=== PATIENT | male | born 1955 | race Caucasian/White ===

== ENCOUNTER → 2017-07-19 11:06 | Outpatient (REF) | payer MEDICARE, SELFPAY ==
[2017-07-19 18:44] LABS: Basophils % 0.4 % (0.1-2.0); Eosinophils # 0.6 K/mm3 (0.0-0.4); Eosinophils % 6.3 % (0.1-12.0); Hematocrit 38.8 % (42.0-52.0); Hemoglobin 12.2 g/dL (14.1-18.0); Lymphocytes # 2.5 K/mm3 (0.7-4.5); Lymphocytes % 28.1 K/mm3 (10-50); Mean Corpuscular HGB Conc 31.5 g/dL (31.8-35.4); Mean Corpuscular Hemoglobin 30.4 pg (27.0-31.2); Mean Corpuscular Volume 96.5 fl (80-94); Monocytes # 0.4 K/mm3 (0.1-1.0); Monocytes % 4.9 % (1.7-9.3); Neutrophils # 5.4 K/mm3 (1.8-7.8); Neutrophils % 60.3 % (37.0-80.0); Platelet Count 195 K/mm3 (142-424); Red Blood Count 4.02 M/mm3 (4.60-6.20); Red Cell Distribution Width 13.8 % (11.5-17.5); White Blood Count 8.9 K/mm3 (4.8-10.8)
[2017-07-19 19:35] LABS: Hemoglobin A1C 9.2 % (0.0-7.0)
[2017-07-19 19:42] LABS: Alanine Aminotransferase 54 U/L (12-78); Albumin Level 4.2 gm/dL (3.4-5.0); Albumin/Globulin Ratio 1.3 (1.1-1.8); Alkaline Phosphatase 79 U/L (46-116); Aspartate Amino Transferase 28 U/L (15-37); Bilirubin,Total 0.3 mg/dL (0.2-1.0); Blood Urea Nitrogen 19 mg/dL (7-18); Calcium 9.1 mg/dL (8.5-10.1); Carbon Dioxide 24 mmol/L (21.0-32.0); Chloride 107 mmol/L (98-107); Chol/HDL Ratio 2.9 (1-3.5); Cholesterol 112 mg/dL (140-200); Globulin 3.2 gm/dl (1.3-3.2); HDL Cholesterol 39 mg/dL (27-67); LDL Cholesterol 20 mg/dL (0-130); T4 (Thyroxine) 6.8 ug/dl (4.7-13.3); Thyroid Stimulating Hormone 1.87 uIU/ml (0.358-3.740); Total Protein,Serum 7.4 gm/dL (6.4-8.2); Triglycerides 263 mg/dL (30-200); VLDL Cholesterol 53 mg/dL (0-40)
[2017-07-19 19:46] LABS: Amphetamine/Metha Screen,Urine Negative ng/mL (<1000); Barbiturates Screen,Urine Negative ng/mL (<200); Benzodiazepines Screen,Urine Negative ng/mL (200); Cannabinoid Screen,Urine Negative ng/mL (<50); Cocaine Screen,Urine Negative ng/g (<300); Methadone Screen,Urine Negative ng/mL (<300); Opiate Screen,Urine Negative ng/mL (<300); Phencyclidine Screen,Urine Negative ng/mL (<25)
[2017-07-19 19:51] LABS: Anion Gap 16.7 mEq/L (5-15); Creatinine,Serum 1.42 mg/dL (0.70-1.30); Estimated Glomerular Filt Rate 51 ml/min (>60); GFR (African American) 61 ML/MIN (>60); Glucose 204 mg/dL (74-106); Sodium 141 mmol/L (136-145)
[2017-07-19 19:54] LABS: Potassium 6.7 mmoL/L (3.5-5.1)
[2017-07-22 11:08] LABS: Microalbumin, Urine 10.8 ug/mL (Not Estab.); PSA, Free 0.18 ng/mL; Prostate Specific Ag 0.5 ng/mL (0.0-4.0)
== END ==
LOC: LAB 11:06
PROVIDERS: Visit Provider Physician Assistant
DX: E11.9 Type 2 diabetes mellitus without complications (principal); G89.29 Other chronic pain; M54.5 Low back pain
CPT/HCPCS: 80053; 80061; 80305; 82043; 83036; 84436; 84443; 85025

== ENCOUNTER 2017-07-20 09:07 | Emergency (ER) | payer MEDICARE, SELFPAY ==
[2017-07-20 09:12] VITALS: BP 170/101; PULSE 68; RESP 22; TEMP 36.9; O2SAT 98; BMI 31.9
--- NOTE | 2017-07-20 09:19 | HMH.EDGENADL ---
ED Disposition Clinical Impression: Abnormal laboratory test result Disposition: Home, Self-Care Condition on Discharge: Good Additional Instructions: See Franchesca next regularly scheduled appointment. - Critical Care Critical Care Time: No Attestation: On , the high probability of a clinically significant, sudden or life threatening deterioration of the following system(s) required my full and direct attention, intervention and personal management. The time I documented below is in addition to time spent performing reported procedures but includes the following listed in this critical care notation. Medical Decision Making - Medical Records Medical records reviewed: Yes: I reviewed the patient's medical records. Vital Signs: 07/20/17 09:12 07/20/17 09:38 07/20/17 09:47 Temperature 98.5 F 98.2 F Temperature Source Oral Oral Pulse Rate [Right Radial] 68 70 71 Respiratory Rate 22 22 22 Blood Pressure [Right Arm] 170/101 157/93 150/95 Blood Pressure Mean [Right Arm] 124 114 113 Blood Pressure Source [Right Arm] Automatic Cuff Automatic Cuff Automatic Cuff Blood Pressure Position [Right Arm] Supine Sitting Sitting 02 Sat by Pulse Oximetry 98 100 95 Oxygen Delivery Method Room Air Room Air Room Air - Lab Data Lab Results 07/20/17 09:38: Sodium 140, Potassium 5.0 D, Chloride 106, Carbon Dioxide 26, Anion Gap 13.0, BUN 20 H, Creatinine 1.37 H, Estimated Creat Clear 76, Estimated GFR 53 L, Est GFR ( Amer) 64, Glucose 229 H, Calcium 9.1, Total Bilirubin 0.3, AST 25, ALT 51, Alkaline Phosphatase 85, Total Protein 7.1, Albumin 3.7 D, Globulin 3.4 H, Albumin/Globulin Ratio 1.1 normal; no intervention needed Result diagrams: 07/20/17 09:38 Orders (Tests/Meds): ORDERS Category Date Time Status ECG Request by /Zohreh Stat Y 07/20/17 09:18 Ordered - ECG Data Tracing #1 I reviewed this ECG and interpreted as documented below: With no T-wave changes. Normal intervals. ECG initial impression date: 07/20/17 ECG initial impression time: 09:30 ECG normal with no acute: arrhythmias, ischemia, conduction abnormalities, chamber hypertrophy (Sinus rhythm with normal axis and intervals. No ectopy. Normal T-wave configuration.) - Kana Inquiry Pt receiving controlled substance: No Medical Decision Making Narrative: Patient got upset when he was called by PCP and had some left sided abdominal pain radiating to left ribs after she called, and the pain went away after I told him his EKG was normal. His potassium here is normal so likely the original specimen was hemolyzed. I consulted with Franchesca regarding all physical findings. lab results, EKG, and she said for patient to f/u at usually scheduled time. Patient has no complaints at discharge, BP normalized now that he has calmed down and is reassured, and agrees to f/u Franchesca as scheduled. Stable at d/c. General Adult HPI - General Chief complaint: Recheck/Abnormal Lab/Rx Stated complaint: potassium high Time Seen by Provider: 07/20/17 09:20 Mode of Arrival: Ambulatory Source of Information: Patient Limitations: No Limitations - History of Present Illness HPI narrative: Patient referred by Franchesca from Dr. Gutierrez's office due to abnormal routine laboratory study. Patient laboratory studies performed yesterday, potassium noted to be elevated. Patient was notified morning and told to go immediately to the emergency department. Is not currently being supplemented on potassium. Denies being on Spironolactone. Denies any history of CRI. No neurological symptoms. Onset (ago): day(s) (1) - Related Data Home Medications Medication Instructions Recorded Confirmed atorvastatin 20 mg tablet 20 mg PO QDAY 07/19/17 07/20/17 carvedilol 25 mg tablet 25 mg PO BID 07/19/17 07/20/17 doxazosin 4 mg tablet 4 mg PO BID tab 07/19/17 07/20/17 lisinopril 40 mg tablet 40 mg PO BID tab 07/19/17 07/20/17 metformin 1,000 mg tablet 1,000 mg PO BID 07/19/17
--- NOTE | 2017-07-20 09:22 | ED_ITS ---
ED Disposition Clinical Impression: Abnormal laboratory test result Disposition: Home, Self-Care Condition on Discharge: Good Additional Instructions: See Franchesca next regularly scheduled appointment. - Critical Care Critical Care Time: No Attestation: On , the high probability of a clinically significant, sudden or life threatening deterioration of the following system(s) required my full and direct attention, intervention and personal management. The time I documented below is in addition to time spent performing reported procedures but includes the following listed in this critical care notation. Medical Decision Making - Medical Records Medical records reviewed: Yes: I reviewed the patient's medical records. Vital Signs: 07/20/17 09:12 07/20/17 09:38 07/20/17 09:47 Temperature 98.5 F 98.2 F Temperature Source Oral Oral Pulse Rate [Right Radial] 68 70 71 Respiratory Rate 22 22 22 Blood Pressure [Right Arm] 170/101 157/93 150/95 Blood Pressure Mean [Right Arm] 124 114 113 Blood Pressure Source [Right Arm] Automatic Cuff Automatic Cuff Automatic Cuff Blood Pressure Position [Right Arm] Supine Sitting Sitting 02 Sat by Pulse Oximetry 98 100 95 Oxygen Delivery Method Room Air Room Air Room Air - Lab Data Lab Results 07/20/17 09:38: Sodium 140, Potassium 5.0 D, Chloride 106, Carbon Dioxide 26, Anion Gap 13.0, BUN 20 H, Creatinine 1.37 H, Estimated Creat Clear 76, Estimated GFR 53 L, Est GFR ( Amer) 64, Glucose 229 H, Calcium 9.1, Total Bilirubin 0.3, AST 25, ALT 51, Alkaline Phosphatase 85, Total Protein 7.1 , Albumin 3.7 D, Globulin 3.4 H, Albumin/Globulin Ratio 1.1 normal; no intervention needed Result diagrams: 07/20/17 09:38 Orders (Tests/Meds): ORDERS Category Date Time Status ECG Request by /Zohreh Stat Y 07/20/17 09:18 Ordered - ECG Data Tracing #1 I reviewed this ECG and interpreted as documented below: With no T-wave changes. Normal intervals. ECG initial impression date: 07/20/17 ECG initial impression time: 09:30 ECG normal with no acute: arrhythmias, ischemia, conduction abnormalities, chamber hypertrophy (Sinus rhythm with normal axis and intervals. No ectopy. Normal T-wave configuration.) - Kana Inquiry Pt receiving controlled substance: No Medical Decision Making Narrative: Patient got upset when he was called by PCP and had some left sided abdominal pain radiating to left ribs after she called, and the pain went away after I told him his EKG was normal. His potassium here is normal so likely the original specimen was hemolyzed. I consulted with Franchesca regarding all physical findings. lab results, EKG, and she said for patient to f/u at usually scheduled time. Patient has no complaints at discharge, BP normalized now that he has calmed down and is reassured, and agrees to f/u Franchesca as scheduled. Stable at d/c. General Adult HPI - General Chief complaint: Recheck/Abnormal Lab/Rx Stated complaint: potassium high Time Seen by Provider: 07/20/17 09:20 Mode of Arrival: Ambulatory Source of Information: Patient Limitations: No Limitations - History of Present Illness HPI narrative: Patient referred by Franchesca from Dr. Gutierrez's office due to abnormal routine laboratory study. Patient laboratory studies performed yesterday, potassium noted to be elevated. Patient was notified morning and told to go immediately to the emergency department. Is n
[2017-07-20 09:38] VITALS: BP 157/93; PULSE 70; RESP 22; O2SAT 100
[2017-07-20 09:47] VITALS: BP 150/95; PULSE 71; RESP 22; TEMP 36.8; O2SAT 95
[2017-07-20 09:59] LABS: Alanine Aminotransferase 51 U/L (12-78); Albumin Level 3.7 gm/dL (3.4-5.0); Albumin/Globulin Ratio 1.1 (1.1-1.8); Alkaline Phosphatase 85 U/L (46-116); Aspartate Amino Transferase 25 U/L (15-37); Bilirubin,Total 0.3 mg/dL (0.2-1.0); Blood Urea Nitrogen 20 mg/dL (7-18); Calcium 9.1 mg/dL (8.5-10.1); Carbon Dioxide 26 mmol/L (21.0-32.0); Chloride 106 mmol/L (98-107); Creatinine Clearance Estimated 76 mL/min (0-300); Creatinine,Serum 1.37 mg/dL (0.70-1.30); Estimated Glomerular Filt Rate 53 ml/min (>60); GFR (African American) 64 ML/MIN (>60); Globulin 3.4 gm/dl (1.3-3.2); Glucose 229 mg/dL (74-106); Sodium 140 mmol/L (136-145); Total Protein,Serum 7.1 gm/dL (6.4-8.2)
[2017-07-20 10:36] VITALS: BP 135/85; PULSE 72; RESP 20; O2SAT 96
== END 2017-07-20 10:37 | disposition home or self-care (01) ==
PROVIDERS: Emergency Provider Emergency Medicine; PCP Physician Assistant
DX: E87.5 Hyperkalemia; E11.9 Type 2 diabetes mellitus without complications; F17.210 Nicotine dependence, cigarettes, uncomplicated; Z79.84 Long term (current) use of oral hypoglycemic drugs; Z79.899 Other long term (current) drug therapy
CPT/HCPCS: 80053; 93005; 93041; 99283

== ENCOUNTER → 2017-08-10 07:49 | Outpatient (CLI) | payer MEDICARE, SELFPAY ==
--- NOTE | 2017-08-10 07:55 | MR_ITS ---
MR lumbar spine wo con, MR 3-d myelogram/MRCP HISTORY: Severe low back pain which is getting worse with left leg pain ORDERING PHYSICIAN: ARNOLD Boyd PATIENT AGE: 62 years COMPARISON: Radiograph of 07/11/2016 TECHNIQUE: Standard multiplanar multiecho sequences are performed without contrast. 3-D MIP and myelographic images are also rendered and reviewed FINDINGS: There is normal alignment. The spinal cord ends at the L1-L2 level. T11-T12: On the sagittal images there appears to be a small left paracentral disc protrusion. Axial images were not obtained through this area and may be better evaluated with dedicated MRI of the thoracic spine of clinically warranted T12-L1 and L1-L2 are unremarkable aside from minimal disc desiccation and minimal endplate irregularity at L1-L2. L2-L3: Moderate degenerative disc disease with diffuse bulging disc along with facet and ligamentum flavum hypertrophy. There is bilateral lateral recess narrowing greater on the right with some suspected mild impingement of the right L3 nerve root. There is a tiny right paracentral disc protrusion. L3-L4: Mild diffuse bulging disc with mild facet and ligamentum flavum hypertrophy. L4-L5: Mild concentric bulging disc with mild facet and ligamentum flavum hypertrophy. L5-S1: Mild concentric bulging disc with mild facet and ligament hypertrophy. No extruded herniated disc evident. No bony canal stenosis. IMPRESSION: 1. Mild multilevel lumbar spondylosis with degenerative disc disease, bulging disc along with facet and ligamentum hypertrophy. Please see above for detailed description at each level. 2. Moderate degenerative disc disease at L2-L3 with diffuse bulging disc along with facet and ligamentum flavum hypertrophy. There is bilateral lateral recess narrowing greater on the right with some suspected mild impingement of the right L3 nerve root. There is a tiny right paracentral disc protrusion 3. Suspect a small left paracentral disc protrusion at T11-T12 on the sagittal images. Consider MRI of the thoracic spine with dedicated axial images for further evaluation in this patient with left-sided pain
== END ==
PROVIDERS: PCP Physician Assistant; Visit Provider Physician Assistant
DX: M54.5 Low back pain (principal); G89.29 Other chronic pain
CPT/HCPCS: 72148; 76376

== ENCOUNTER → 2017-08-17 10:42 | Outpatient (REF) | payer MEDICARE, SELFPAY ==
[2017-08-17 14:06] LABS: Amphetamine/Metha Screen,Urine Negative ng/mL (<1000); Barbiturates Screen,Urine Negative ng/mL (<200); Benzodiazepines Screen,Urine Negative ng/mL (200); Cannabinoid Screen,Urine Negative ng/mL (<50); Cocaine Screen,Urine Negative ng/g (<300); Methadone Screen,Urine Negative ng/mL (<300); Opiate Screen,Urine Positive ng/mL (<300); Phencyclidine Screen,Urine Negative ng/mL (<25)
== END ==
LOC: LAB 10:42
PROVIDERS: Visit Provider Physician Assistant
DX: M51.16 Intervertebral disc disorders with radiculopathy, lumbar region (principal)
CPT/HCPCS: 80305

== ENCOUNTER → 2017-09-09 07:46 | Outpatient (CLI) | payer MEDICARE, SELFPAY ==
--- NOTE | 2017-09-09 07:49 | MR_ITS ---
MR thoracic spine wo con HISTORY: Mid Back pain Xyrs. LT sided back pain Interval vertebral disc herniation, mid back pain, left-sided back pain, possible left paracentral disc protrusion at T11-T12 seen on the lumbar spine MRI with dedicated thoracic spine MRI recommended ORDERING PHYSICIAN: ARNOLD Boyd PATIENT AGE: 62 years COMPARISON: MRI of the lumbar spine up to 2117 TECHNIQUE: Standard multiplanar multiecho sequences are performed without contrast. 3-D MIP and myelographic images are also rendered and reviewed FINDINGS: There is normal alignment. There is mild multilevel disc desiccation in the thoracic spine indicate mild degenerative disc disease. Minimal bulging disc at T7-T8. Minimal central disc protrusion T9-T10 very slightly eccentric toward the right without impingement. Small left paracentral disc protrusion at T11-T12: Mild left lateral recess and foraminal narrowing but no obvious impingement upon the cord. No fracture or dislocation. There is mild thoracic curvature convex right. IMPRESSION: 1. Small left paracentral disc protrusion at T11-T12 with mild left lateral recess and foraminal narrowing but no obvious impingement upon the cord. 2. Minimal central disc protrusion at T9-T10. 3. Mild thoracic spondylosis
== END ==
PROVIDERS: PCP Physician Assistant; Visit Provider Physician Assistant
DX: M51.24 Other intervertebral disc displacement, thoracic region (principal)
CPT/HCPCS: 72146

== ENCOUNTER → 2017-09-13 10:03 | Outpatient (REF) | payer MEDICARE, SELFPAY ==
[2017-09-13 13:38] LABS: Amphetamine/Metha Screen,Urine Negative ng/mL (<1000); Barbiturates Screen,Urine Negative ng/mL (<200); Benzodiazepines Screen,Urine Negative ng/mL (200); Cannabinoid Screen,Urine Negative ng/mL (<50); Cocaine Screen,Urine Negative ng/g (<300); Methadone Screen,Urine Negative ng/mL (<300); Opiate Screen,Urine Positive ng/mL (<300); Phencyclidine Screen,Urine Negative ng/mL (<25)
== END ==
LOC: LAB 10:03
PROVIDERS: Visit Provider Physician Assistant
DX: M51.16 Intervertebral disc disorders with radiculopathy, lumbar region (principal)
CPT/HCPCS: 80305

== ENCOUNTER → 2017-09-19 11:42 | Outpatient (POV) | payer MEDICARE, SELFPAY ==
[2017-09-19 11:44] VITALS: BP 155/85; PULSE 79; RESP 20; O2SAT 97; BMI 30.4
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
== END ==
PROVIDERS: PCP Physician Assistant; Visit Provider Clinical Nurse Specialist Family Health
DX: M54.16 Radiculopathy, lumbar region (principal)
CPT/HCPCS: 99212; 99202

== ENCOUNTER → 2017-12-14 09:57 | Outpatient (REF) | payer MEDICARE, SELFPAY ==
[2017-12-14 16:18] LABS: Amphetamine/Metha Screen,Urine Negative ng/mL (<1000); Barbiturates Screen,Urine Negative ng/mL (<200); Benzodiazepines Screen,Urine Negative ng/mL (200); Cannabinoid Screen,Urine Negative ng/mL (<50); Cocaine Screen,Urine Negative ng/g (<300); Methadone Screen,Urine Negative ng/mL (<300); Opiate Screen,Urine Positive ng/mL (<300); Phencyclidine Screen,Urine Negative ng/mL (<25)
== END ==
LOC: LAB 09:57
PROVIDERS: Visit Provider Physician Assistant
DX: M51.36 Other intervertebral disc degeneration, lumbar region (principal); N40.1 Benign prostatic hyperplasia with lower urinary tract symptoms; R35.0 Frequency of micturition; Z79.899 Other long term (current) drug therapy
CPT/HCPCS: 80305

== ENCOUNTER → 2018-03-13 09:12 | Outpatient (REF) | payer MEDICARE, SELFPAY ==
[2018-03-13 15:23] LABS: Amphetamine/Metha Screen,Urine Negative ng/mL (<1000); Barbiturates Screen,Urine Negative ng/mL (<200); Benzodiazepines Screen,Urine Negative ng/mL (<200); Cannabinoid Screen,Urine Negative ng/mL (<50); Cocaine Screen,Urine Negative ng/mL (<300); Methadone Screen,Urine Negative ng/mL (<300); Opiate Screen,Urine Positive ng/mL (<300); Phencyclidine Screen,Urine Negative ng/mL (<25)
== END ==
LOC: LAB 09:12
PROVIDERS: Visit Provider Physician Assistant
DX: M54.2 Cervicalgia (principal)
CPT/HCPCS: 80305

== ENCOUNTER → 2018-06-14 14:04 | Outpatient (CLI) | payer MEDICARE, SELFPAY ==
[2018-06-14 16:25] LABS: Amphetamine/Metha Screen,Urine Negative ng/mL (<1000); Barbiturates Screen,Urine Negative ng/mL (<200); Benzodiazepines Screen,Urine Negative ng/mL (<200); Cannabinoid Screen,Urine Negative ng/mL (<50); Cocaine Screen,Urine Negative ng/mL (<300); Methadone Screen,Urine Negative ng/mL (<300); Opiate Screen,Urine Positive ng/mL (<300); Phencyclidine Screen,Urine Negative ng/mL (<25)
== END ==
PROVIDERS: Visit Provider Physician Assistant
DX: Z79.899 Other long term (current) drug therapy (principal)
CPT/HCPCS: 80305

== ENCOUNTER → 2018-12-04 13:26 | Outpatient (CLI) | payer MEDICARE, SELFPAY ==
[2018-12-04 13:41] LABS: Basophils % 0.4 % (0.1-2.0); Eosinophils # 0.3 K/mm3 (0.0-0.4); Eosinophils % 3.7 % (0.1-12.0); Hematocrit 37.9 % (42.0-52.0); Hemoglobin 11.7 g/dL (14.1-18.0); Lymphocytes # 2.1 K/mm3 (0.7-4.5); Lymphocytes % 23.8 % (10-50); Mean Corpuscular HGB Conc 30.8 g/dL (31.8-35.4); Mean Corpuscular Hemoglobin 29.6 pg (27.0-31.2); Mean Corpuscular Volume 96.3 fl (80-94); Mean Platelet Volume 7.6 fl (7.4-10.4); Monocytes # 0.5 K/mm3 (0.1-1.0); Monocytes % 5.7 % (1.7-9.3); Neutrophils # 5.9 K/mm3 (1.8-7.8); Neutrophils % 66.5 % (37.0-80.0); Platelet Count 230 K/mm3 (142-424); Red Blood Count 3.93 M/mm3 (4.60-6.20); Red Cell Distribution Width 13.7 % (11.5-17.5); White Blood Count 8.9 K/mm3 (4.8-10.8)
[2018-12-04 14:34] LABS: Alanine Aminotransferase 31 U/L (12-78); Albumin Level 3.8 gm/dL (3.4-5.0); Albumin/Globulin Ratio 1.2 (1.1-1.8); Alkaline Phosphatase 76 U/L (46-116); Anion Gap 16.6 mEq/L (5-15); Aspartate Amino Transferase 15 U/L (15-37); Bilirubin,Total 0.5 mg/dL (0.2-1.0); Blood Urea Nitrogen 21 mg/dL (7-18); Calcium 8.6 mg/dL (8.5-10.1); Carbon Dioxide 25 mmol/L (21.0-32.0); Chloride 103 mmol/L (98-107); Chol/HDL Ratio 3.1 (1-3.5); Cholesterol 91 mg/dL (140-200); Creatinine,Serum 1.76 mg/dL (0.70-1.30); Estimated Glomerular Filt Rate 39 ml/min (>60); GFR (African American) 48 ML/MIN (>60); Globulin 3.1 gm/dl (1.3-3.2); Glucose 156 mg/dL (74-106); HDL Cholesterol 29 mg/dL (27-67); LDL Cholesterol 16 mg/dL (0-130); Potassium 5.6 mmoL/L (3.5-5.1); Prostate Specific Ag Screen 0.5 ng/mL (0.0-4.0); Sodium 139 mmol/L (136-145); T4 (Thyroxine) 7.1 ug/dl (4.7-13.3); Thyroid Stimulating Hormone 1.58 uIU/ml (0.358-3.740); Total Protein,Serum 6.9 gm/dL (6.4-8.2); Triglycerides 228 mg/dL (30-200); VLDL Cholesterol 46 mg/dL (0-40)
[2018-12-04 14:56] LABS: Amphetamine/Metha Screen,Urine Negative ng/mL (<1000); Barbiturates Screen,Urine Negative ng/mL (<200); Benzodiazepines Screen,Urine Negative ng/mL (<200); Cannabinoid Screen,Urine Negative ng/mL (<50); Cocaine Screen,Urine Negative ng/mL (<300); Methadone Screen,Urine Negative ng/mL (<300); Opiate Screen,Urine Positive ng/mL (<300); Phencyclidine Screen,Urine Negative ng/mL (<25)
[2018-12-04 15:25] LABS: Hemoglobin A1C 7.8 % (0.0-7.0)
[2018-12-07 07:46] LABS: Microalbumin, Urine 10.1 ug/mL (Not Estab.)
== END ==
PROVIDERS: Visit Provider Physician Assistant
DX: E11.9 Type 2 diabetes mellitus without complications (principal); Z79.899 Other long term (current) drug therapy; Z12.5 Encounter for screening for malignant neoplasm of prostate; Z79.84 Long term (current) use of oral hypoglycemic drugs
CPT/HCPCS: 80053; 80061; 80305; 82043; 83036; 84436; 84443; 85025; G0103

== ENCOUNTER → 2018-12-25 11:08 | Outpatient (CLI) | payer MEDICARE, SELFPAY ==
--- NOTE | 2018-12-25 11:11 | CA_ITS ---
PROCEDURE: 2-D M-mode and color Doppler study INDICATIONS FOR THE TEST: Chest pain COPD Heart Murmur Tobacco Smoking+ Palpitations Fatigue Syncope Edema Hypertension+Diabetes Mellitus Rheumatic Fever SOB NICOLE Obesity Hyperlipidemia+ Family History HD Additional History stents,cad, hx colon ca PATIENT INFORMATION HEIGHT: 68 WEIGHT:198 GENDER: Male B/P:144/71 2-D/M-MODE INTERPRETATION: 2-D MEASUREMENTS OBSERVED VALUES IN CMS Right Ventricular Dimension (RVDd) 1.4 Interventricular Septum (Thickness)(IVsd) 0.4 Left Ventricular Internal Dimensions(LVIDd) 5.4 Left Ventricular Posterior Wall (Thickness)(LVPWd) 0.9 Aortic Root 2.9 Aortic Cusp Separation 2.1 Left Atrial Dimensions (LAD) 4.3 2D 1. Left atrium is mildly enlarged, left ventricle is normal size, mild qualitative concentric left ventricular hypertrophy, visually estimated ejection fraction 55% with no regional wall motion abnormality. 2. The right atrium and right ventricle are normal size and contractility. 3. The aortic valve is minimally thickened and calcified. Leaflet continue to display good mobility. 4. Mitral and tricuspid valvular grossly normal. 5. The pulmonic valve is poorly visualized. 6. No significant pericardial effusion noted. DOPPLER INTERROGATION: Doppler interrogation of the aortic, mitral and tricuspid valvular presence of mild mitral and tricuspid regurgitation, tricuspid regurgitation jet velocity is inadequate for calculation of the right ventricular systolic pressure, grade 1 diastolic dysfunction seen without tissue Doppler evidence of raised left atrial pressure. CONCLUSION: 1. Mildly enlarged left atrium, normal left ventricular size, mild qualitative concentric left ventricular hypertrophy, visually estimated ejection fraction 55% with no regional wall motion abnormality, grade 1 diastolic dysfunction seen without tissue Doppler evidence of raised left atrial pressure. 2. Mild mitral and tricuspid regurgitation 3. No significant pericardial effusion noted.
== END ==
PROVIDERS: PCP Emergency Medicine; Visit Provider Urology
DX: E78.5 Hyperlipidemia, unspecified (principal); F17.200 Nicotine dependence, unspecified, uncomplicated; I10 Essential (primary) hypertension; I25.10 Atherosclerotic heart disease of native coronary artery without angina pectoris; Z95.5 Presence of coronary angioplasty implant and graft
CPT/HCPCS: 93306

== ENCOUNTER → 2019-01-29 13:53 | Outpatient (CLI) | payer MEDICARE, SELFPAY ==
[2019-01-29 15:15] LABS: Amphetamine/Metha Screen,Urine Negative ng/mL (<1000); Barbiturates Screen,Urine Negative ng/mL (<200); Benzodiazepines Screen,Urine Negative ng/mL (<200); Cannabinoid Screen,Urine Negative ng/mL (<50); Cocaine Screen,Urine Negative ng/mL (<300); Methadone Screen,Urine Negative ng/mL (<300); Opiate Screen,Urine Positive ng/mL (<300); Phencyclidine Screen,Urine Negative ng/mL (<25)
== END ==
PROVIDERS: Visit Provider Physician Assistant
DX: Z79.899 Other long term (current) drug therapy (principal)
CPT/HCPCS: 80305

== ENCOUNTER → 2019-10-18 09:23 | Outpatient (CLI) | payer MEDICARE, SELFPAY ==
--- NOTE | 2019-10-18 09:23 | MR_ITS ---
PROCEDURE: MR LUMBAR SPINE WO CON CLINICAL INDICATION: Worsening low back pain Worsening low back pain, left-sided low back pain COMPARISON: SPLUMBWO MR lumbar spine wo con from 08/10/2017 SPTHORWO MR thoracic spine wo con from 09/09/2017 TECHNIQUE: Standard multiplanar multiecho sequences are performed without contrast. 3-D MIP and myelographic images are also rendered and reviewed FINDINGS: There is slight reversal of the thoracolumbar lordosis. The spinal cord ends at the L1-L2 level. There is multilevel lumbar spondylosis as described below. T10-T11: Degenerative disc disease. T11-T12: Degenerative disc disease with a small left paracentral disc protrusion causing mild left lateral recess and foraminal narrowing. T12-L1: Mild degenerative disc disease. L1-L2: Mild degenerative disc disease. L2-L3: Degenerative disc disease with concentric bulging disc along with facet and ligamentum hypertrophy with moderate bilateral lateral recess narrowing and moderate bilateral foraminal narrowing. The lateral recess and foraminal narrowing is greater on the right. These findings have slightly progressed compared to the previous exam. The bulging disc is more prominent on today's study compared to the previous exam. L3-L4: Mild concentric bulging disc along with facet and ligamentum hypertrophy with [id number] bilateral lateral recess and foraminal narrowing not significantly changed. L4-5: Mild concentric bulging disc with facet and ligamentum hypertrophy with mild bilateral lateral recess and foraminal narrowing L5-S1: Concentric bulging disc with facet ligamentum hypertrophy with mild bilateral foraminal narrowing. No extruded herniated disc. No bony canal stenosis. IMPRESSION: 1. Abnormal MRI of the lumbar spine with multilevel lumbar spondylosis with degenerative disc disease along with facet and ligamentum hypertrophy and bulging disc with resultant lateral recess and foraminal narrowing. Please see above for detailed description at each level. 2. Small left paracentral disc protrusion at T11-T12 with left lateral recess and foraminal narrowing. 3. Degenerative disc disease at L2-L3 with concentric bulging disc along with facet and ligamentum hypertrophy with moderate bilateral lateral recess narrowing and moderate bilateral foraminal narrowing. The lateral recess and foraminal narrowing is greater on the right. These findings have slightly progressed compared to the previous exam. The bulging disc is more prominent on today's study compared to the previous exam 4. No extruded herniated disc or bony canal stenosis Dictated by: Shukri So MD 10/19/2019 08:42 Electronically signed by Shukri So MD in [place] 10/19/2019 08:43
== END ==
PROVIDERS: PCP Physician Assistant; Visit Provider Emergency Medicine
DX: M51.36 Other intervertebral disc degeneration, lumbar region (principal)
CPT/HCPCS: 72148; 76376

== ENCOUNTER → 2019-12-17 14:06 | Outpatient (CLI) | payer MEDICARE, SELFPAY ==
[2019-12-17 14:39] LABS: Basophils % 0.3 % (0.1-2.0); Eosinophils # 0.3 K/mm3 (0.0-0.4); Eosinophils % 3.8 % (0.1-12.0); Hematocrit 45.1 % (42.0-52.0); Hemoglobin 14.8 g/dL (14.1-18.0); Lymphocytes # 2.2 K/mm3 (0.7-4.5); Lymphocytes % 24.8 % (10-50); Mean Corpuscular HGB Conc 32.8 g/dL (31.8-35.4); Mean Corpuscular Hemoglobin 32.9 pg (27.0-31.2); Mean Corpuscular Volume 100.1 fl (80-94); Mean Platelet Volume 8.8 fl (7.4-10.4); Monocytes # 0.4 K/mm3 (0.1-1.0); Monocytes % 4.1 % (1.7-9.3); Neutrophils % 67.1 % (37.0-80.0); Platelet Count 218 K/mm3 (142-424); Red Cell Distribution Width 14.2 % (11.5-17.5)
[2019-12-17 15:05] LABS: Chloride 102 mmol/L (98-107)
[2019-12-17 15:06] LABS: Potassium 5.4 mmoL/L (3.5-5.1); Sodium 133 mmol/L (136-145)
[2019-12-17 15:08] LABS: Alanine Aminotransferase 18 U/L (12-78); Alkaline Phosphatase 77 U/L (38-126); Aspartate Amino Transferase 19 U/L (17-59); Bilirubin,Total 0.7 mg/dl (0.2-1.3); Blood Urea Nitrogen 30 mg/dl (9-20); Carbon Dioxide 22 mmol/L (22.0-30.0); Estimated Glomerular Filt Rate 44 ml/min (>60); GFR (African American) 53 ML/MIN (>60)
[2019-12-17 15:09] LABS: Albumin Level 4.3 g/dl (3.5-5.0); Albumin/Globulin Ratio 1.6 (1.1-1.8); Anion Gap 14.4 mEq/L (5-15); Calcium 9.4 mg/dl (8.4-10.2); Chol/HDL Ratio 5.6 (1-3.5); Cholesterol 203 mg/dl (140-200); Globulin 2.7 g/dL (1.3-3.2); Glucose 357 mg/dl (74-100); HDL Cholesterol 36 mg/dl (40-60); Triglycerides 295 mg/dl (30-150); VLDL Cholesterol 59 mg/dL (0-40)
[2019-12-17 15:16] LABS: Microalbumin < 6.000 mg/L (0-16.7)
[2019-12-17 15:20] LABS: Direct LDL Cholesterol 127.01 mg/dL (100-129)
[2019-12-17 15:25] LABS: T4 (Thyroxine) 7.5 ug/dl (5.53-11.0)
[2019-12-17 15:39] LABS: Thyroid Stimulating Hormone 1.54 uIU/mL (0.465-4.68)
[2019-12-19 11:39] LABS: Folate >20.0 ng/mL (>3.0); Vitamin B12 604 pg/mL (232-1245)
== END ==
PROVIDERS: Visit Provider Physician Assistant
DX: E11.9 Type 2 diabetes mellitus without complications (principal); D64.9 Anemia, unspecified; Z79.84 Long term (current) use of oral hypoglycemic drugs
CPT/HCPCS: 80053; 80061; 82043; 82607; 82746; 83036; 84436; 84443; 85025

== ENCOUNTER 2020-02-05 14:10 | Emergency (ER) | payer MEDICARE, SELFPAY ==
[2020-02-05 14:31] VITALS: BP 138/81; PULSE 77; RESP 14; TEMP 36.8; O2SAT 96; BMI 28.1
--- NOTE | 2020-02-05 15:00 | HMH.EDUTC ---
[facility] [place] Disposition Clinical Impression: Forearm abrasion Qualifiers: Encounter type: initial encounter Laterality: left Qualified Code(s): S50.812A - Abrasion of left forearm, initial encounter Disposition: Home, Self-Care Condition on Discharge: Good Instructions: DI for Abrasion, DI for Minor Laceration Additional Instructions: Keep wound area clean and dry Over the counter Neosporin to the area with bandage Watch for signs of infection such as redness, drainage, swelling or streaks Return if needed Straight to ER if any life threatening symptoms Follow up with Family Doctor if needed Referrals: Franchesca Arteaga PA [Primary Care Provider] - As needed Time of Disposition: 15:06 Medical Decision Making - Kana Inquiry Pt receiving controlled substance: No Kana was queried for this patient: No Vital Signs: 02/05/20 14:31 02/05/20 15:06 Temperature 98.2 F 98.2 F Temperature Source Oral Pulse Rate 77 Pulse Rate [Right Brachial] 77 Respiratory Rate 14 14 Blood Pressure 138/81 Blood Pressure [Right Arm] 138/81 Blood Pressure Mean [Right Arm] 100 Blood Pressure Source [Right Arm] Automatic Cuff Blood Pressure Position [Right Arm] Sitting 02 Sat by Pulse Oximetry 96 Oxygen Delivery Method Room Air [facility] [place] HPI - General Stated complaint: cut on left forearm Time Seen by Provider: 02/05/20 15:00 Mode of Arrival: Ambulatory Source of Information: Patient Limitations: No Limitations Description of Symptoms (Recalled from Triage Doc. by RN): PATIENT C/O CUTE TO LEFT FOREARM SINCE YESTERDAY AND IS WORRIED IT MAY BE INFECTED. NO UP TO DATE ON TETANUS HEENT Symptoms (Recalled from RN notes): No Resp Symptoms (Recalled from RN notes): No Skin Symptoms (Recalled from RN notes): Yes MS Symptoms (Recalled from RN notes): No Functional Status (Recalled from RN notes): WNL - History of Present Illness Provider Complaint: Patient states that he was helping his brother yesterday evening when he cut his forearm on a shield on the tractor States that he wasnt sure when his last tetanus shot was and he was worried and just wanted to have it looked at to see if it may be infected so he came in States that he is also unsure when his last tetanus shot was and needed one of those also - Related Data Home Medications Medication Instructions Recorded Confirmed aspirin 81 mg tablet,delayed 81 mg PO DAILY 12/04/18 12/17/19 release Previous Rx's Medication Instructions Recorded triamterene 75 1 tab PO DAILY #90 tab 04/18/19 mg-hydrochlorothiazide 50 mg tablet lisinopril 30 mg tablet 30 mg PO DAILY #90 tab 09/10/19 metformin 1,000 mg tablet 1,000 mg PO BID #180 tab 09/10/19 atorvastatin 20 mg tablet 20 mg PO DAILY #90 tab 10/10/19 carvedilol 25 mg tablet 25 mg PO BID #180 tab 10/10/19 diazepam 2 mg tablet 2 mg PO BID PRN #14 tab 10/10/19 doxazosin 4 mg tablet 8 mg PO DAILY #90 tab 10/10/19 gabapentin 300 mg capsule 300 mg PO TID #90 cap 12/10/19 hydrocodone 5 mg-acetaminophen 325 1 tab PO TID PRN #90 tab 12/17/19 mg tablet glipizide 10 mg tablet, extended 10 mg PO DAILY #90 tab 12/19/19 release 24 hr sildenafil (pulm.hypertension) 20 20 mg PO DAILY PRN #30 tab 01/18/20 mg tablet Allergies Allergy/AdvReac Type Severity Reaction Status Date / Time amoxicillin [AMOXICILLIN] Allergy Intermediate I-RASH Verified 12/17/19 09:54 - Worker's Comp Is this a Worker's Comp case?: No [facility] History - Hepatitis A Screen Drug use history?: No High risk sexual behaviors?: No History of sexually transmitted infection?: No Currently employed?: No Childcare worker?: No Do you have indoor plumbing?: Yes Do you have electricity?: Yes Attestation statement:: This patient has been screened for Hepatitis A risk factors. I have reviewed the patient's past medical history: Yes Medical History: Reports:: Cancer, Diabetes Mellitus Type 2, Hypertension Other Medical History: Reports: Arthritis Comment
[2020-02-05 15:06] VITALS: BP 138/81; PULSE 77; RESP 14; TEMP 36.8; O2SAT 96
== END 2020-02-05 15:08 | disposition home or self-care (01) ==
PROVIDERS: Emergency Provider Nurse Practitioner; PCP Physician Assistant
DX: S50.812A Abrasion of left forearm, initial encounter (principal); W22.8XXA Striking against or struck by other objects, initial encounter; Y92.79 Other farm location as the place of occurrence of the external cause; Z23 Encounter for immunization; E11.9 Type 2 diabetes mellitus without complications; I10 Essential (primary) hypertension; E78.5 Hyperlipidemia, unspecified; Z95.5 Presence of coronary angioplasty implant and graft; Z85.038 Personal history of other malignant neoplasm of large intestine; F17.210 Nicotine dependence, cigarettes, uncomplicated; Z88.1 Allergy status to other antibiotic agents
CPT/HCPCS: 90471; 99201

== ENCOUNTER → 2020-02-13 19:16 | Outpatient (CLI) | payer MEDICARE, SELFPAY ==
[2020-02-13 19:30] LABS: Basophils % 0.5 % (0.1-2.0); Eosinophils # 0.5 K/mm3 (0.0-0.4); Hematocrit 45.5 % (42.0-52.0); Hemoglobin 15.4 g/dL (14.1-18.0); Lymphocytes # 2.5 K/mm3 (0.7-4.5); Mean Corpuscular HGB Conc 33.9 g/dL (31.8-35.4); Mean Corpuscular Hemoglobin 33.2 pg (27.0-31.2); Mean Platelet Volume 7.9 fl (7.4-10.4); Monocytes # 0.4 K/mm3 (0.1-1.0); Monocytes % 4.9 % (1.7-9.3); Neutrophils # 4.8 K/mm3 (1.8-7.8); Neutrophils % 58.6 % (37.0-80.0); Platelet Count 244 K/mm3 (142-424); Red Blood Count 4.65 M/mm3 (4.60-6.20); Red Cell Distribution Width 13.7 % (11.5-17.5); White Blood Count 8.3 K/mm3 (4.8-10.8)
[2020-02-13 20:03] LABS: Alanine Aminotransferase 19 U/L (12-78); Albumin Level 4.6 g/dl (3.5-5.0); Albumin/Globulin Ratio 1.4 (1.1-1.8); Alkaline Phosphatase 80 U/L (38-126); Anion Gap 17.8 mEq/L (5-15); Aspartate Amino Transferase 23 U/L (17-59); Bilirubin,Total 0.5 mg/dl (0.2-1.3); Blood Urea Nitrogen 29 mg/dl (9-20); Calcium 9.8 mg/dl (8.4-10.2); Carbon Dioxide 27 mmol/L (22.0-30.0); Chloride 101 mmol/L (98-107); Chol/HDL Ratio 5.9 (1-3.5); Cholesterol 205 mg/dl (140-200); Estimated Glomerular Filt Rate 38 ml/min (>60); GFR (African American) 46 ML/MIN (>60); Globulin 3.2 g/dL (1.3-3.2); Glucose 123 mg/dl (74-100); HDL Cholesterol 35 mg/dl (40-60); Potassium 4.8 mmoL/L (3.5-5.1); Sodium 141 mmol/L (136-145); Total Protein,Serum 7.8 g/dl (6.3-8.2); Triglycerides 303 mg/dl (30-150); VLDL Cholesterol 61 mg/dL (0-40)
[2020-02-13 20:14] LABS: Direct LDL Cholesterol 117.76 mg/dL (100-129)
[2020-02-13 20:18] LABS: Free T4 (Free Thyroxine) 1.08 ng/dl (0.78-2.19)
[2020-02-13 20:32] LABS: Thyroid Stimulating Hormone 2.05 uIU/mL (0.465-4.68)
[2020-02-13 20:37] LABS: Hemoglobin A1C 7.7 % (4.0-6.0)
== END ==
PROVIDERS: Visit Provider Nurse Practitioner Family
DX: E11.9 Type 2 diabetes mellitus without complications (principal); R89.9 Unspecified abnormal finding in specimens from other organs, systems and tissues; R19.7 Diarrhea, unspecified; K59.00 Constipation, unspecified; E03.9 Hypothyroidism, unspecified; Z79.84 Long term (current) use of oral hypoglycemic drugs
CPT/HCPCS: 80053; 80061; 83036; 84439; 84443; 85025

== ENCOUNTER → 2020-03-17 14:18 | Outpatient (CLI) | payer MEDICARE, SELFPAY ==
[2020-03-17 14:39] LABS: Chloride 106 mmol/L (98-107)
[2020-03-17 14:40] LABS: Potassium 5.2 mmoL/L (3.5-5.1); Sodium 142 mmol/L (136-145)
[2020-03-17 14:43] LABS: Anion Gap 15.2 mEq/L (5-15); Blood Urea Nitrogen 37 mg/dl (9-20); Calcium 9.4 mg/dl (8.4-10.2); Carbon Dioxide 26 mmol/L (22.0-30.0); Estimated Glomerular Filt Rate 34 ml/min (>60); GFR (African American) 41 ML/MIN (>60); Glucose 198 mg/dl (74-100)
== END ==
PROVIDERS: Visit Provider Physician Assistant
DX: E11.9 Type 2 diabetes mellitus without complications (principal); Z79.84 Long term (current) use of oral hypoglycemic drugs
CPT/HCPCS: 36415; 80048

== ENCOUNTER → 2020-05-21 16:57 | Outpatient (CLI) | payer MEDICARE, SELFPAY ==
[2020-05-27 08:03] LABS: Neisseria gonorrhoeae, NAA Negative (Negative)
== END ==
PROVIDERS: Visit Provider Physician Assistant
DX: N40.0 Benign prostatic hyperplasia without lower urinary tract symptoms (principal)
CPT/HCPCS: 87086; 87491; 87591

== ENCOUNTER → 2020-08-06 14:03 | Outpatient (CLI) | payer MEDICARE, SELFPAY ==
[2020-08-06 14:23] LABS: Basophils % 0.6 % (0.1-2.0); Eosinophils # 0.5 K/mm3 (0.0-0.4); Eosinophils % 6.8 % (0.1-12.0); Hematocrit 45.1 % (42.0-52.0); Hemoglobin 14.3 g/dL (14.1-18.0); Mean Corpuscular HGB Conc 31.7 g/dL (31.8-35.4); Mean Corpuscular Hemoglobin 30.9 pg (27.0-31.2); Mean Corpuscular Volume 97.4 fl (80-94); Monocytes # 0.4 K/mm3 (0.1-1.0); Neutrophils # 4.4 K/mm3 (1.8-7.8); Neutrophils % 60.5 % (37.0-80.0); Platelet Count 210 K/mm3 (142-424); Red Blood Count 4.63 M/mm3 (4.60-6.20); Red Cell Distribution Width 14.1 % (11.5-17.5); White Blood Count 7.2 K/mm3 (4.8-10.8)
[2020-08-06 14:41] LABS: Alanine Aminotransferase 21 U/L (12-78); Albumin Level 4.2 g/dl (3.5-5.0); Albumin/Globulin Ratio 1.4 (1.1-1.8); Alkaline Phosphatase 99 U/L (38-126); Anion Gap 14.4 mEq/L (5-15); Aspartate Amino Transferase 22 U/L (17-59); Bilirubin,Total 0.4 mg/dl (0.2-1.3); Blood Urea Nitrogen 39 mg/dl (9-20); Calcium 9.7 mg/dl (8.4-10.2); Carbon Dioxide 27 mmol/L (22.0-30.0); Chloride 101 mmol/L (98-107); Chol/HDL Ratio 7.3 (1-3.5); Cholesterol 225 mg/dl (140-200); Estimated Glomerular Filt Rate 36 ml/min (>60); GFR (African American) 43 ML/MIN (>60); Glucose 321 mg/dl (74-100); HDL Cholesterol 31 mg/dl (40-60); Potassium 5.4 mmoL/L (3.5-5.1); Sodium 137 mmol/L (136-145); Total Protein,Serum 7.2 g/dl (6.3-8.2); Triglycerides 338 mg/dl (30-150); VLDL Cholesterol 68 mg/dL (0-40)
[2020-08-06 14:52] LABS: Direct LDL Cholesterol 140.86 mg/dL (100-129)
[2020-08-06 14:58] LABS: T4 (Thyroxine) 7.5 ug/dl (5.53-11.0)
[2020-08-06 15:12] LABS: Thyroid Stimulating Hormone 2.16 uIU/mL (0.465-4.68)
[2020-08-06 16:07] LABS: Hemoglobin A1C 8.4 % (4.0-6.0)
== END ==
PROVIDERS: Visit Provider Nurse Practitioner Family
DX: E11.9 Type 2 diabetes mellitus without complications (principal); E78.5 Hyperlipidemia, unspecified; I10 Essential (primary) hypertension; N52.9 Male erectile dysfunction, unspecified; Z79.84 Long term (current) use of oral hypoglycemic drugs
CPT/HCPCS: 80053; 80061; 83036; 84436; 84443; 85025

== ENCOUNTER → 2020-08-14 12:30 | Outpatient (CLI) | payer MEDICARE, SELFPAY ==
[2020-08-14 13:24] LABS: Chloride 100 mmol/L (98-107); Potassium 5.2 mmoL/L (3.5-5.1); Sodium 139 mmol/L (136-145)
[2020-08-14 13:27] LABS: Alanine Aminotransferase 24 U/L (12-78); Albumin Level 4.5 g/dl (3.5-5.0); Albumin/Globulin Ratio 1.5 (1.1-1.8); Alkaline Phosphatase 116 U/L (38-126); Anion Gap 14.2 mEq/L (5-15); Aspartate Amino Transferase 25 U/L (17-59); Bilirubin,Total 0.5 mg/dl (0.2-1.3); Blood Urea Nitrogen 44 mg/dl (9-20); Carbon Dioxide 30 mmol/L (22.0-30.0); Estimated Glomerular Filt Rate 30 ml/min (>60); GFR (African American) 37 ML/MIN (>60); Globulin 3.1 g/dL (1.3-3.2); Total Protein,Serum 7.6 g/dl (6.3-8.2)
[2020-08-14 13:28] LABS: Calcium 10.2 mg/dl (8.4-10.2); Glucose 293 mg/dl (74-100)
== END ==
PROVIDERS: Visit Provider Nurse Practitioner Family
DX: E87.5 Hyperkalemia (principal)
CPT/HCPCS: 36415; 80053

== ENCOUNTER → 2020-09-10 14:05 | Outpatient (POV) | payer MEDICARE, SELFPAY | DX: Z00.00 Encounter for general adult medical examination without abnormal findings (principal) ==

== ENCOUNTER → 2020-09-18 13:58 | Outpatient (CLI) | payer MEDICARE, SELFPAY ==
[2020-09-18 14:19] LABS: Amphetamine/Metha Screen,Urine Negative ng/ml (<1000); Barbiturates Screen,Urine Negative ng/ml (<200)
[2020-09-18 14:20] LABS: Benzodiazepines Screen,Urine Negative ng/ml (<200)
[2020-09-18 14:21] LABS: Cannabinoid Screen,Urine Negative ng/ml (<50); Cocaine Screen,Urine Negative ng/ml (<300)
[2020-09-18 14:22] LABS: Methadone Screen,Urine Negative ng/ml (<300); Opiate Screen,Urine Negative ng/ml (<300)
[2020-09-18 14:23] LABS: Phencyclidine Screen,Urine Negative ng/ml (<25)
== END ==
PROVIDERS: Visit Provider Nurse Practitioner Family
DX: M54.2 Cervicalgia (principal); M54.9 Dorsalgia, unspecified
CPT/HCPCS: 80305

== ENCOUNTER → 2020-11-18 20:44 | Outpatient (CLI) | payer MEDICARE, SELFPAY ==
[2020-11-18 20:56] LABS: Basophils # 0.1 K/mm3 (0-0.2); Basophils % 0.6 % (0.1-2.0); Eosinophils # 1.1 K/mm3 (0.0-0.4); Eosinophils % 10.3 % (0.1-12.0); Hematocrit 44.3 % (42.0-52.0); Hemoglobin 14.1 g/dL (14.1-18.0); Lymphocytes # 2.5 K/mm3 (0.7-4.5); Mean Corpuscular HGB Conc 31.7 g/dL (31.8-35.4); Mean Corpuscular Hemoglobin 31.1 pg (27.0-31.2); Mean Corpuscular Volume 98.2 fl (80-94); Mean Platelet Volume 9.1 fl (7.4-10.4); Monocytes # 0.5 K/mm3 (0.1-1.0); Monocytes % 4.8 % (1.7-9.3); Neutrophils # 6.6 K/mm3 (1.8-7.8); Neutrophils % 61.3 % (37.0-80.0); Platelet Count 206 K/mm3 (142-424); Red Blood Count 4.52 M/mm3 (4.60-6.20); Red Cell Distribution Width 14.6 % (11.5-17.5); White Blood Count 10.7 K/mm3 (4.8-10.8)
[2020-11-18 21:15] LABS: Chloride 103 mmol/L (98-107)
[2020-11-18 21:16] LABS: Potassium 4.8 mmoL/L (3.5-5.1); Sodium 138 mmol/L (136-145)
[2020-11-18 21:18] LABS: Alanine Aminotransferase 19 U/L (12-78); Alkaline Phosphatase 125 U/L (38-126); Aspartate Amino Transferase 24 U/L (17-59); Bilirubin,Total 0.5 mg/dl (0.2-1.3); Blood Urea Nitrogen 29 mg/dl (9-20); Estimated Glomerular Filt Rate 38 ml/min (>60); GFR (African American) 46 ML/MIN (>60)
[2020-11-18 21:19] LABS: Albumin Level 4.1 g/dl (3.5-5.0); Albumin/Globulin Ratio 1.4 (1.1-1.8); Anion Gap 13.8 mEq/L (5-15); Calcium 9.6 mg/dl (8.4-10.2); Carbon Dioxide 26 mmol/L (22.0-30.0); Glucose 240 mg/dl (74-100); Total Protein,Serum 7.1 g/dl (6.3-8.2)
[2020-11-19 03:37] LABS: Hemoglobin A1C 8.4 % (4.0-6.0)
[2020-11-20 08:15] LABS: CEA 7.9 ng/mL (0.0-4.7)
== END ==
PROVIDERS: Visit Provider Internal Medicine Adolescent Medicine
DX: C18.9 Malignant neoplasm of colon, unspecified (principal); E11.69 Type 2 diabetes mellitus with other specified complication; Z79.84 Long term (current) use of oral hypoglycemic drugs
CPT/HCPCS: 80053; 82378; 83036; 85025

== ENCOUNTER → 2020-11-25 14:28 | Outpatient (CLI) | payer MEDICARE, SELFPAY ==
--- NOTE | 2020-11-25 14:34 | XR_ITS ---
PROCEDURE: XR LUMBAR SPINE MIN 4V CLINICAL INDICATION: LT SIDED LOW BACK PAIN COMPARISON: CR LS5 LUMBAR SPINE 5 VIEWS from 07/11/2016 FINDINGS: Mild lumbar curvature convex left. Degenerative disc disease is present at L2-L3 and has progressed since 07/11/2016. There is mild degenerative disc disease in the lower thoracic spine with small anterior osteophytes. No acute fracture or dislocation. Other findings:None. IMPRESSION: Progressing degenerative disc disease at L2-L3 Dictated by: Shukri So MD 11/25/2020 16:04 Shukri So MD in [place] 11/25/2020 16:04
--- NOTE | 2020-11-25 14:34 | XR_ITS ---
PROCEDURE: XR SACROILIAC JOINT BI MIN 3V CLINICAL INDICATION: LT SIDED LOW BACK PAIN COMPARISON: MR MR LUMBAR SPINE WO CON from 10/18/2019 CR XR LUMBAR SPINE MIN 4V from 11/25/2020 FINDINGS: No fracture or dislocation. No lytic or blastic change. There is normal mineralization. The joint spaces are well-preserved. No significant degenerative/arthritic changes. No erosive changes evident. Other findings:None. IMPRESSION: Negative SI joints Dictated by: Shukri So MD 11/25/2020 16:05 Shukri So MD in [place] 11/25/2020 16:05
== END ==
PROVIDERS: PCP Internal Medicine Adolescent Medicine; Visit Provider Internal Medicine Adolescent Medicine
DX: M54.5 Low back pain (principal)
CPT/HCPCS: 72110; 72202

== ENCOUNTER → 2020-12-03 08:49 | Outpatient (CLI) | payer MEDICARE, SELFPAY | PROVIDERS: Visit Provider Internal Medicine Gastroenterology | DX: Z01.812 Encounter for preprocedural laboratory examination (principal); Z20.822 Contact with and (suspected) exposure to COVID-19; Z12.11 Encounter for screening for malignant neoplasm of colon | CPT/HCPCS: U0003 ==

== ENCOUNTER → 2020-12-04 08:02 | Outpatient (CLI) | payer MEDICARE, SELFPAY ==
--- NOTE | 2020-12-04 08:05 | CT_ITS ---
PROCEDURE: CT LUNG SCREENING CLINICAL INDICATION: H/O NICOTINE DEPENDENCE COMPARISON: CT CHW CT CHEST W/ CONTRAST from 09/18/2015 TECHNIQUE: The exam was performed on a GE Light Speed [address] scanner using 2.90 mGy CTDI. A low dose helical CT CHEST was performed on a multi-detector scanner. All CT scans at the facility use one or more dose reduction, viz: automated exposure control, ma/kV adjustment per patient size (including targeted exams where dose is matched to indication, i.e. head), or iterative reconstruction technique. The LDCT was performed in a facility that meets the criteria for the screening program. Data regarding this exam was submitted to ACR which is an approved registry. The order for this exam indicates that it came as a result of a lung cancer screening counseling shard decision-making visit that included all the elements required of such a visit including smoking cessation. The radiologist interpreting this exam meets the [facility] criteria for the LDCT lung cancer screening program. The exam is reported using the Lung-RADS classification scale and reported to the ACR registry. NOTE: This study was performed for the specific purposes of lung cancer screening and is not an alternative to diagnostic chest CT. RADIATION DOSE: CTDI vol(CT dose Index-volume) = 2.90mG DLP (Dose Length Product) = 114.11 mGcm FINDINGS: There are scattered mild emphysematous changes with no discrete pulmonary nodules. No pleural effusion or pneumothorax. No ground-glass opacities in the lungs or pulmonary consolidation. Heart is not enlarged. No pericardial effusion or thickening. Mild calcification of the thoracic aorta without aneurysm. A few small non-specific middle mediastinal lymph nodes again noted. Airways are patent. Coronary artery calcifications again noted. Images of the upper abdomen show no focal abnormality. No adrenal mass. Some diffuse degenerative changes of the thoracic spine are present. No acute bony abnormality. OTHER FINDINGS: No other pertinent findings evident. IMPRESSION: Lung-RADS Category 2 Benign Appearance or Behavior Follow-up: Serial follow-up in 1 year. Scattered mild emphysematous changes with no ground-glass opacities in the lungs or pulmonary consolidation. No discrete pulmonary nodules noted. Dictated by: Ellis Rome MD 12/04/2020 09:08 Ellis Rome MD in [place] 12/04/2020 09:08
== END ==
PROVIDERS: PCP Internal Medicine Adolescent Medicine; Visit Provider Internal Medicine Adolescent Medicine
DX: Z87.891 Personal history of nicotine dependence (principal); Z12.2 Encounter for screening for malignant neoplasm of respiratory organs
CPT/HCPCS: 71271

== ENCOUNTER 2020-12-05 10:58 | Day surgery (SDC) | payer MEDICARE, SELFPAY ==
[2020-11-27 10:14] VITALS: BMI 30.7
[2020-12-05] VITALS (10 sets, daily range): BP systolic 90–141; BP diastolic 62–87; PULSE 58–67; RESP 16–18; TEMP 36.9–37.2; O2SAT 92–99
[2020-12-05 12:24] LABS: POC Glucose,Bedside 124 (70-110)
--- NOTE | 2020-12-05 12:28 | P.PN_ITS ---
[facility] Anesthesia Checklist - Patient Identification Patient Identification: Arm Band - Structural Data Admitted From: Home Planned Operative Procedure/s: Colonoscopy Consent for Planned Operative Procedure(s) Verified: Yes - NPO Status Verified Time NPO: 00:00 - Airway Assessment C-Spine Mobility Assessed: Yes TMJ Mobility Assessed: Yes Dentition: Edentulous - Neurological Assessment Level of Consciousness: Awake Hx Seizures: No Numbness or tingling in extremities: No - Anesthesia Plan Anesthesia Risk discussed: Yes Anesthesia Plan: Verified ASA Class: III Anesthesia Type: MAC [facility] History I have reviewed the patient's past medical history: Yes Medical History: Reports:: Cancer (bowel), Coronary Artery Disease, Diabetes Mellitus Type 2, Hyperlipidemia, Hypertension Denies:: Diabetes Mellitus Type 1, Internal Pacemaker, MRSA, Seizures *Have you ever received a pneumonia vaccine?: Yes *Have you received a flu vaccine this season?: Yes Other Medical History: Reports: Arthritis Anesthesia experience/problems:: None Other Surgeries: Yes: Cancer Surgery, Cardiac Catheterization, Colonoscopy, Colon Resection, Coronary Stent, Other. No: Pacemaker Amputation: No Fractures: No - *Social History Last grade of school completed: High school graduate Smoking Status: Current every day smoker Tobacco Type: cigarettes # Packs/Day (cigarettes): 1 #Yrs smoked (if former smoker): 12 Alcohol Intake: never Alcohol Intake Frequency:: holidays/special occasions only Substance Use Type: painkillers *Occupational Status:: disabled Housing: house *Travel in the last 8 weeks: None Family Hx:: Coronary Artery Disease, Cancer, Hypertension
--- NOTE | 2020-12-05 12:58 | P.PCN_ITS ---
[facility] Procedure Note Procedure Note:: Colonoscopy Procedure Report: Colonoscopy with cold snare polypectomy Endoscopist: Chacorta Viera II, MD Referring physician: Palomo Noriega M.D. Date of Procedure: December 05, 2020 Equipment: Olympus 190 variable stiffness pediatric colonoscope Sedation: MAC sedation Indication: Mr. Verde is a 65-year-old gentleman with a prior personal history of colon cancer. This was discovered in 2011 and he had right hemicolectomy (Dr. Jamal Gomez). The patient has not had a colonoscopy since that time. Brielle fleming recently had an elevated CEA level of 7.9 (normal less than 4.7). He does report some generalized abdominal discomfort and occasional hemorrhoidal bleeding. He does also have some occasional bowel irregularity with constipation alternating with diarrhea. He reports no weight loss. He does state that his mother had colon cancer at the age of 87 and his maternal grandmother had colon cancer at the age of 77. Procedure: Prior to the procedure, a history and physical exam was performed, and patient's medications and allergies were reviewed. The risks, benefits and alternatives of the sedation and procedure were discussed with the patient. All questions were answered and informed consent was obtained. The patient was brought to the procedure room. Patient identification and proposed procedure were verified by the physician and the nurse. The patient was placed in a left lateral decubitus position and the scope was passed under direct vision. Throughout the procedure, the patient's blood pressure, pulse, and oxygen saturations were monitored continuously. The colonoscopy was accomplished without difficulty. The patient tolerated the procedure well. Findings: On digital rectal examination there was normal rectal tone. There were no external hemorrhoids. The prostate was firm but symmetric without nodules. The colonoscope was introduced through the anal canal to the rectum and advanced to the ileocolonic anastomosis. The scope was advanced a short distance into the ileum which appeared grossly normal. The scope was then withdrawn into the colon. The remaining ascending and transverse colon and mucosa were grossly normal. There were mildly scattered diverticuli throughout the descending and sigmoid colon (LEFT colon). There was a diminutive 3 mm polyp in the sigmoid colon removed via cold snare polypectomy. The rectum itself was normal. Upon retroflexion within the rectum there were grade 2 internal hemorrhoids. The preparation was fair throughout with [place] Preparation Score of 7 out of 9. The cecal time was 12 minutes. Impression: 1. Diminutive sigmoid colon polyp 2. Mild left-sided diverticulosis 3. Prior right hemicolectomy with normal anastomosis 4. Grade 2 internal hemorrhoids Plan: I would encourage the patient to continue surveillance at 5 years. There was no etiology for his elevated CEA level. I would consider contrast CT scans/imaging of the abdomen and pelvis especially with his generalized abdominal discomfort and bowel irregularity. Certainly, late metastatic recurrence is very unlikely after 5 years but I would consider other primaries that can result in this tumor marker (i.e. pancreaticobiliary or upper digestive tract/gastric).
--- NOTE | 2020-12-05 13:34 | CT_ITS ---
PROCEDURE: CT ABDOMEN PELVIS WO CON CLINICAL INDICATION: increased CEA and abdominal pain COMPARISON: CT ABDPELW CT ABD PELVIS W/ CONTRAST from 09/18/2015 TECHNIQUE: Axial images obtained with sagittal and coronal reformats. All CT scans at the facility use one or more dose reduction, viz: automated exposure control, ma/kV adjustment per patient size (including targeted exams where dose is matched to indication, i.e. head), or iterative reconstruction technique. Oral contrast given prior to scanning. FINDINGS: Lung bases show mild scar versus atelectasis. Small calcified granuloma in the left lower lobe again noted. Mild diffuse fatty infiltration of the liver. No focal liver or splenic lesion. Several calcifications in the spleen. Gallbladder pancreas and adrenal glands are normal. Kidneys are normal. Postop changes of prior right hemicolectomy. No distended large or small bowel or bowel wall thickening. No free intraperitoneal air or fluid. Some mild calcification of the abdominal aorta without aneurysm. No upper abdominal lymphadenopathy. Bladder is normal. Prostate gland and seminal vesicles appear unremarkable. Few small bilateral inguinal chain lymph nodes not pathologically enlarged. No inguinal or femoral hernia. No acute bony abnormality. Some degenerative changes of the lumbar spine diffusely particularly at L2-3 noted. IMPRESSION: Prior right hemicolectomy. No free intraperitoneal air or fluid. Mild diffuse fatty infiltration of the liver. No distended large or small bowel or bowel wall thickening is noted. A few diverticula on the colon without diverticulitis. Dictated by: Ellis Rome MD 12/05/2020 16:38 Ellis Rome MD in [place] 12/05/2020 16:38
[2020-12-05 14:02] LABS: Blood Urea Nitrogen 34 mg/dl (9-20); Creatinine Clearance Estimated 45 mL/min (50-200); Estimated Glomerular Filt Rate 32 ml/min (>60); GFR (African American) 39 ML/MIN (>60)
== END 2020-12-05 14:35 ==
LOC: OUTP 10:58
PROVIDERS: PCP Internal Medicine Adolescent Medicine; Visit Provider Internal Medicine Gastroenterology
PROC: 0DJD8ZZ Inspection of Lower Intestinal Tract, Via Natural or Artificial Opening Endoscopic (ICD-10-PCS; CPT 45378; principal; 2020-12-05 12:30)
DX: Z12.11 Encounter for screening for malignant neoplasm of colon (principal); K63.5 Polyp of colon; K57.30 Diverticulosis of large intestine without perforation or abscess without bleeding; K64.1 Second degree hemorrhoids; Z90.49 Acquired absence of other specified parts of digestive tract; Z85.038 Personal history of other malignant neoplasm of large intestine; Z80.0 Family history of malignant neoplasm of digestive organs; I25.10 Atherosclerotic heart disease of native coronary artery without angina pectoris; E11.9 Type 2 diabetes mellitus without complications; E78.5 Hyperlipidemia, unspecified; I10 Essential (primary) hypertension; Z72.0 Tobacco use; Z88.1 Allergy status to other antibiotic agents
CPT/HCPCS: 45385; 36415; 74176; 82565; 82962; 84520; 88305; J2704

== ENCOUNTER → 2021-01-01 07:47 | Outpatient (CLI) | payer MEDICARE, SELFPAY ==
--- NOTE | 2021-01-01 07:47 | MR_ITS ---
PROCEDURE: MR LUMBAR SPINE WO CON CLINICAL INDICATION: back pain Low back pain COMPARISON: CT ABDPELW CT ABD PELVIS W/ CONTRAST from 09/18/2015 MR MR LUMBAR SPINE WO CON from 10/18/2019 CR XR LUMBAR SPINE MIN 4V from 11/25/[address] ABDOMEN PELVIS WO CON from 12/05/2020 TECHNIQUE: Standard multiplanar multiecho sequences are performed without contrast. 3-D MIP and myelographic images are also rendered and reviewed FINDINGS: The spinal cord ends at the L2 level. There is normal alignment T11-T12: Mild degenerative disc disease with a small left paracentral disc protrusion without impingement unchanged. This causes mild left lateral recess and foraminal narrowing. L1-L2: Unremarkable. L2-L3: There is decrease in the disc space at L2-L3. There is diffuse concentric bulging disc with facet and ligamentum hypertrophic change causing bilateral lateral recess and foraminal narrowing right greater than left. Canal stenosis is present at this level. The bulging disc has slightly increased in size compared to the previous exam with slight worsening of canal stenosis. There is diffuse decreased T1 and increased T2 signal involving nearly the entire L2 and L3 vertebral bodies with some sparing of the superior posterior aspect of L2 in the inferior-posterior aspect of L3 as well as sparing of the inferior endplate of L3 and the superior endplate of L2. This has developed since the previous study. There are anterior osteophytes at this level however, there is now a prominent soft tissue component along the anterior aspect of the vertebral bodies. This abnormal area of soft tissue intensity measures 2.6 cm cephalad to caudad and 1.6 cm AP and there appears to be some erosion of the anterior endplates at L2-L3. No obvious abscess. There is some increased T2 signal of the disc centrally L3-L4: Mild bulging disc with facet and ligamentum hypertrophic change with lateral recess and foraminal narrowing not significantly changed. L4-5: Mild bulging disc with facet and ligamentum hypertrophy not significantly changed. L5-S1: Bulging disc with mild facet ligamentum hypertrophy not significantly changed. IMPRESSION: 1. Multilevel lumbar spondylosis with degenerative disc disease, bulging disc, facet and ligamentum hypertrophy with lateral recess and foraminal narrowing and canal stenosis. Please see above for detailed description at each level. 2. At L2-L3 there is a prominent bulging disc which is slightly increased in size with canal stenosis and bilateral lateral recess and foraminal narrowing. There is also an abnormal area of signal intensity along the anterior aspect of the disc space suggesting a prominent soft tissue area with possible erosive change of the anterior endplates and diffuse edema of L2 and L3. This is suggestive of spondylo discitis.. No obvious abscess. Severe spondyloarthropathy is also a consideration. Please correlate with clinical parameters. Follow-up is suggested. Dictated by: Shukri So MD 01/01/2021 09:56 Shukri So MD in [place] 01/01/2021 09:56
== END ==
PROVIDERS: PCP Nurse Practitioner Family; Visit Provider Nurse Practitioner Family
DX: M51.16 Intervertebral disc disorders with radiculopathy, lumbar region (principal)
CPT/HCPCS: 72148; 76376

== ENCOUNTER 2021-01-05 11:58 | Emergency (ER) | payer MEDICARE, SELFPAY ==
[2021-01-05 12:06] VITALS: BP 152/73; PULSE 64; RESP 16; TEMP 37.1; O2SAT 94; BMI 28.1
[2021-01-05 12:15] VITALS: BP 152/73; PULSE 64; RESP 16; TEMP 37.1; O2SAT 94; BMI 28.0
--- NOTE | 2021-01-05 13:02 | HMH.EDUTC ---
[facility] [place]ression: Infected abrasion Disposition: Home, Self-Care Condition on Discharge: Good Instructions: DI for Abrasion, Cephalexin, Bacitracin Topical Additional Instructions: Keep wound area clean and dry Clean with antibacterial soap and water and pat dry leave open to air when at home and cover if you are going somewhere dirty or outside Take medication as prescribed Follow up with your Doctor if needed Straight to ER if any life threatening symptoms Apply topical medication as prescribed Prescriptions: Bacitracin [Bacitracin Oint 0.9GM UDP] 1 each TP BID 10 Days #20 packet Transmission Status: Pending to [id number] cephALEXin [cephALEXin 500mg capsule*] 500 mg PO Q8H #21 cap Transmission [facility]: [facility] Referrals: Hector Wagner APRN [Primary Care Provider] - As needed Time of Disposition: 13:14 Medical Decision Making - Kana Inquiry Pt receiving controlled substance: No Kana was queried for this patient: No Vital Signs: 01/05/21 12:06 01/05/21 12:15 Temperature 98.8 F 98.8 F Temperature Source Oral Oral Pulse Rate [Left Radial] 64 64 Respiratory Rate 16 16 Blood Pressure [Left Arm] 152/73 H 152/73 H Blood Pressure Mean [Left Arm] 99 99 Blood Pressure Source [Left Arm] Automatic Cuff Automatic Cuff Blood Pressure Position [Left Arm] Sitting Sitting 02 Sat by Pulse Oximetry 94 L 94 L Oxygen Delivery Method Room Air Room Air Medical Decision Narrative: Patient states that he is allergic to amoxicillin but can take Cephalexin without reactions or complication [facility] [place] General Stated complaint: ao 01/02 possible Rt leg infection Time Seen by Provider: 01/05/21 13:02 Mode of Arrival: Ambulatory Source of Information: Patient Limitations: No Limitations Description of Symptoms (Recalled from Triage Doc. by RN): pt reports painful LLE r/t hitting it on board fence 3 days ago. Abrasions with redness noted. Pt reports has been keeping area covered, scabbed areas are moist. Denies fever HEENT Symptoms (Recalled from RN notes): No Resp Symptoms (Recalled from RN notes): No Skin Symptoms (Recalled from RN notes): Yes MS Symptoms (Recalled from RN notes): No Functional Status (Recalled from RN notes): WNL - History of Present Illness Provider Complaint: Patient states that he scrapped his right lower leg on a fence several days ago States that he is a diabetic and noticed it was getting red and warm and looked a little swollen so he thought he may should come in and get some antibiotics to help to clear it up - Related Data Home Medications Medication Instructions Recorded Confirmed aspirin 81 mg tablet,delayed 81 mg PO DAILY 12/04/18 12/17/20 release Atorvastatin Calcium [Lipitor 40mg 40 mg PO DAILY 11/27/20 12/17/20 Tab] Blood Sugar Diagnostic [Blood See Rx Instructions .ROUTE 11/27/20 12/17/20 Glucose Test] .MEDSUPPLY Blood-Glucose Meter [Blood Glucose See Rx Instructions .ROUTE 11/27/20 12/17/20 Meter] .MEDSUPPLY [place]-3S/Dha/Epa/Fish Oil [Fish 1 mg PO DAILY 11/27/20 12/17/20 Oil 1,000 mg Softgel] carvediloL [Carvedilol 25mg Tab] 25 mg PO BID 11/27/20 12/17/20 amlodipine 5 mg tablet 10 mg PO DAILY tab 12/17/20 12/17/20 gabapentin 300 mg capsule 300 mg PO TID 12/17/20 12/17/20 lisinopril 20 mg tablet 20 mg PO DAILY 12/17/20 12/17/20 methocarbamol 500 mg tablet 500 mg PO TID tab 12/17/20 12/17/20 Previous Rx's Medication Instructions Recorded diclofenac sodium 1 % topical gel 2 g TOPICAL QID #100 g 12/17/20 canagliflozin 100 mg tablet 300 mg PO DAILY #90 tab 12/22/20 tamsulosin 0.4 mg capsule 0.4 mg PO DAILY #90 cap 12/22/20 sildenafil (pulm.hypertension) 20 20 mg PO Q6H #30 tab 12/23/20 mg tablet sitagliptin 100 mg tablet 100 mg PO DAILY #30 tab 12/23/20 glipizide 10 mg tablet, extended 10 mg PO BID #180 tab 01/01/21 release 24 hr Bacitracin [Bacitracin Oint 0.9GM 1 each TP BID 10 Days #20 pac
[2021-01-05 13:16] VITALS: BP 152/73; PULSE 64; RESP 16; TEMP 37.1; O2SAT 94
== END 2021-01-05 13:24 | disposition home or self-care (01) ==
LOC: ER 12:06 → UTC 12:06
PROVIDERS: Emergency Provider Nurse Practitioner; PCP Nurse Practitioner Family
DX: L03.115 Cellulitis of right lower limb (principal); F17.210 Nicotine dependence, cigarettes, uncomplicated; E11.9 Type 2 diabetes mellitus without complications
CPT/HCPCS: G0463; 99202

== ENCOUNTER → 2021-01-09 13:44 | Outpatient (CLI) | payer MEDICARE, SELFPAY ==
[2021-01-09 14:23] LABS: Basophils # 0.1 K/mm3 (0-0.2); Basophils % 0.6 % (0.1-2.0); Eosinophils # 0.4 K/mm3 (0.0-0.4); Eosinophils % 4.2 % (0.1-12.0); Hematocrit 44.9 % (42.0-52.0); Hemoglobin 14.8 g/dL (14.1-18.0); Lymphocytes # 2.5 K/mm3 (0.7-4.5); Lymphocytes % 25.3 % (10-50); Mean Corpuscular HGB Conc 33.1 g/dL (31.8-35.4); Mean Corpuscular Hemoglobin 31.1 pg (27.0-31.2); Mean Corpuscular Volume 94.1 fl (80-94); Mean Platelet Volume 8.9 fl (7.4-10.4); Monocytes # 0.4 K/mm3 (0.1-1.0); Monocytes % 4.3 % (1.7-9.3); Neutrophils # 6.4 K/mm3 (1.8-7.8); Neutrophils % 65.5 % (37.0-80.0); Platelet Count 233 K/mm3 (142-424); Red Blood Count 4.77 M/mm3 (4.60-6.20); Red Cell Distribution Width 14.8 % (11.5-17.5); White Blood Count 9.8 K/mm3 (4.8-10.8)
[2021-01-09 14:58] LABS: Microalbumin/Creatinine Ratio 47.5
[2021-01-09 15:02] LABS: Creatinine,Urine Random 24 mg/dL (Not Estab.)
[2021-01-09 17:41] LABS: Alanine Aminotransferase 23 U/L (12-78); Albumin Level 4.6 g/dl (3.5-5.0); Albumin/Globulin Ratio 1.6 (1.1-1.8); Alkaline Phosphatase 127 U/L (38-126); Anion Gap 17.4 mEq/L (5-15); Aspartate Amino Transferase 25 U/L (17-59); Bilirubin,Total 0.6 mg/dl (0.2-1.3); Blood Urea Nitrogen 25 mg/dl (9-20); Calcium 9.4 mg/dl (8.4-10.2); Carbon Dioxide 23 mmol/L (22.0-30.0); Chloride 105 mmol/L (98-107); Chol/HDL Ratio 3.4 (1-3.5); Cholesterol 127 mg/dl (140-200); Estimated Glomerular Filt Rate 44 ml/min (>60); GFR (African American) 53 ML/MIN (>60); Globulin 2.9 g/dL (1.3-3.2); Glucose 263 mg/dl (74-100); HDL Cholesterol 37 mg/dl (40-60); Potassium 4.4 mmoL/L (3.5-5.1); Sodium 141 mmol/L (136-145); Total Protein,Serum 7.5 g/dl (6.3-8.2); Triglycerides 203 mg/dl (30-150); VLDL Cholesterol 41 mg/dL (0-40)
[2021-01-09 17:52] LABS: Direct LDL Cholesterol 59.21 mg/dL (100-129)
[2021-01-09 17:59] LABS: T4 (Thyroxine) 7.8 ug/dl (5.53-11.0)
[2021-01-09 18:12] LABS: Prostate Specific Ag Screen 0.8 ng/ml (0.0-4.0); Thyroid Stimulating Hormone 1.32 uIU/mL (0.465-4.68)
== END ==
PROVIDERS: Visit Provider Nurse Practitioner Family
DX: E11.9 Type 2 diabetes mellitus without complications (principal); L08.9 Local infection of the skin and subcutaneous tissue, unspecified; T14.8XXA Other injury of unspecified body region, initial encounter; I10 Essential (primary) hypertension; R19.7 Diarrhea, unspecified; Z12.5 Encounter for screening for malignant neoplasm of prostate; Z79.84 Long term (current) use of oral hypoglycemic drugs
CPT/HCPCS: 80053; 80061; 82043; 82570; 83036; 84436; 84443; 85025; G0103

== ENCOUNTER 2021-01-31 08:37 | Emergency (ER) | payer MEDICARE, SELFPAY ==
[2021-01-31 08:39] VITALS: BP 138/77; PULSE 68; RESP 20; TEMP 37.3; O2SAT 92; BMI 26.6
--- NOTE | 2021-01-31 09:09 | HMH.EDGENADL ---
ED Disposition Clinical Impression: Abrasion of right leg Qualifiers: Encounter type: initial encounter Qualified Code(s): S80.811A - Abrasion, right lower leg, initial encounter Disposition: Home, Self-Care Condition on Discharge: Good Additional Instructions: Dr. Gutierrez will arrange outpatient MRI scan to further evaluate for the possibility of a retained foreign body. Clean the wound daily with soap and water and bandage. Follow-up with primary care provider if increasing pain, redness, pus drainage, swelling, red streaks, or fever. Referrals: Hector Wagner APRN [Primary Care Provider] - - Critical Care Critical Care Time: No Attestation: On 01/31/21, the high probability of a clinically significant, sudden or life threatening deterioration of the following system(s) required my full and direct attention, intervention and personal management. The time I documented below is in addition to time spent performing reported procedures but includes the following listed in this critical care notation. Medical Decision Making - Medical Records Medical records reviewed: Yes: I reviewed the patient's medical records. MR Comment: Reviewed urgent treatment center visit here on 01/05/2021 for this injury. Treated with Keflex and bacitracin. Followed up with his PCP on 01/09/2021 and was prescribed minocycline. - Kana Inquiry Pt receiving controlled substance: No Vital Signs: 01/31/21 08:39 01/31/21 09:26 01/31/21 09:58 Temperature 99.1 F Temperature Source Oral Pulse Rate 64 64 Pulse Rate [Right] 68 Respiratory Rate 20 18 12 Blood Pressure 131/73 128/75 Blood Pressure [Right Arm] 138/77 Blood Pressure Mean [Right Arm] 97 Blood Pressure Source [Right Arm] Automatic Cuff 02 Sat by Pulse Oximetry 92 L 94 L 97 Oxygen Delivery Method Room Air Orders (Tests/Meds): ED MEDICATIONS Discontinued Medications Generic Name Dose Route Start Last Admin Trade Name Freq PRN Reason Stop Dose Admin Lidocaine/Epinephrine 10 ml 01/31/21 09:13 Lidocaine 2% W/Epi 1:100,000 20ml Vial IJ 01/31/21 09:14 ONCE ONE ORDERS Category Date Time Status Tibia/fibula XR right 2 views [XR tibia fibula RT 2V] Exams 01/31/21 09:18 Taken Stat - Physician Consults Physician Consulted: Brenda Time: 10:30 Reason -: Pt condition Comment/Response: He will arrange outpatient MRI to further evaluate for retained foreign body. Medical Decision Narrative: X-ray ordered to rule out foreign body. I will also open and explore the wound since he has tenderness and pain out of proportion to what is seen on physical exam. Patient advised that although x-ray and exploration normal, still cannot completely rule out foreign body. He will follow up and have outpatient MRI scan. It is not felt that he needs any additional antibiotics at this time. General Adult HPI - General Chief complaint: Extremity Injury, Lower Stated complaint: [id number] right leg home injury Time Seen by Provider: 01/31/21 09:09 Mode of Arrival: Ambulatory Limitations: No Limitations Description of Symptoms (Recalled from ER Triage Doc. by RN): patient was reaching into animal cage approx 4 weeks ago when he scraped right lower leg on cage. patient states that he is diabetic and the injury has been healing well at home. But in the last 3 days patient has been experiencing increased pain in right lower extremity and now has extreme pain in leg when ambulating. patient rates pain 8/10. - History of Present Illness HPI narrative: Patient states that 6 weeks ago he scraped his right segal untreated lumbar. He had some abrasions. All areas have healed up except for one area that still has a scab which has been painful since the injury, but pain has worsened in the past 3 days and now it hurts him to walk. No fever. No drainage noted. He has been on 2 courses of antibiotics for this injury. Immunization for tetanus is up-to-date. - R
--- NOTE | 2021-01-31 09:18 | XR_ITS ---
PROCEDURE INFORMATION: Exam: XR Right Tibia and Fibula Exam date and time: 01/31/2021 9:18 AM Age: 65 years old Clinical indication: Other: R/O fb TECHNIQUE: Imaging protocol: XR Right tibia and fibula. Views: 2 views. COMPARISON: CR [id number]-RT 06/16/2016 9:39 AM FINDINGS: Bones/joints: There is no evidence of acute fracture.There is no evidence of malalignment or dislocation. Periosteal reaction in the proximal fibula may represent healing nondisplaced fracture.. Soft tissues: No foreign body identified. IMPRESSION: 1. There is no evidence of acute fracture.There is no evidence of malalignment or dislocation. 2. Periosteal reaction in the proximal fibula may represent healing nondisplaced fracture.. 3. No foreign body identified
[2021-01-31 09:26] VITALS: BP 131/73; PULSE 64; RESP 18; O2SAT 94
--- NOTE | 2021-01-31 09:30 | PC.NURSE ---
pt going to xray
--- NOTE | 2021-01-31 09:39 | PC.NURSE ---
pt back from xray
[2021-01-31 09:58] VITALS: BP 128/75; PULSE 64; RESP 12; O2SAT 97
[2021-01-31 10:40] VITALS: BP 136/87; PULSE 63; RESP 18; TEMP 36.9; O2SAT 96
== END 2021-01-31 10:48 | disposition home or self-care (01) ==
PROVIDERS: Emergency Provider Emergency Medicine; PCP Nurse Practitioner Family
DX: S80.811A Abrasion, right lower leg, initial encounter (principal); I25.10 Atherosclerotic heart disease of native coronary artery without angina pectoris; E78.5 Hyperlipidemia, unspecified; I10 Essential (primary) hypertension; F17.210 Nicotine dependence, cigarettes, uncomplicated; W22.8XXA Striking against or struck by other objects, initial encounter; Y92.019 Unspecified place in single-family (private) house as the place of occurrence of the external cause
CPT/HCPCS: 11042; 73590; 99282

== ENCOUNTER 2021-02-04 04:07 | Emergency (ER) | payer MEDICARE, SELFPAY ==
[2021-02-04 04:08] VITALS: BP 158/74; PULSE 69; RESP 18; TEMP 37; O2SAT 98; BMI 26.6
--- NOTE | 2021-02-04 04:43 | PC.NURSE ---
Pt does not know what medications he takes
[2021-02-04 05:23] LABS: Basophils % 0.4 % (0.1-2.0); Eosinophils # 0.5 K/mm3 (0.0-0.4); Eosinophils % 4.5 % (0.1-12.0); Hematocrit 40.4 % (42.0-52.0); Lymphocytes # 2.6 K/mm3 (0.7-4.5); Lymphocytes % 25.1 % (10-50); Mean Corpuscular HGB Conc 32.3 g/dL (31.8-35.4); Mean Corpuscular Hemoglobin 30.5 pg (27.0-31.2); Mean Corpuscular Volume 94.4 fl (80-94); Mean Platelet Volume 7.4 fl (7.4-10.4); Monocytes # 0.5 K/mm3 (0.1-1.0); Monocytes % 4.9 % (1.7-9.3); Neutrophils # 6.7 K/mm3 (1.8-7.8); Platelet Count 228 K/mm3 (142-424); Red Blood Count 4.28 M/mm3 (4.60-6.20); Red Cell Distribution Width 14.9 % (11.5-17.5); White Blood Count 10.3 K/mm3 (4.8-10.8)
[2021-02-04 05:27] LABS: Alanine Aminotransferase 18 U/L (12-78); Albumin Level 4.2 g/dl (3.5-5.0); Albumin/Globulin Ratio 1.4 (1.1-1.8); Alkaline Phosphatase 100 U/L (38-126); Anion Gap 11.7 mEq/L (5-15); Aspartate Amino Transferase 23 U/L (17-59); Bilirubin,Total 0.4 mg/dl (0.2-1.3); Blood Urea Nitrogen 20 mg/dl (9-20); Calcium 9.2 mg/dl (8.4-10.2); Carbon Dioxide 28 mmol/L (22.0-30.0); Chloride 107 mmol/L (98-107); Creatinine Clearance Estimated 49 mL/min (50-200); Estimated Glomerular Filt Rate 41 ml/min (>60); GFR (African American) 49 ML/MIN (>60); Globulin 3.1 g/dL (1.3-3.2); Glucose 187 mg/dl (74-100); Potassium 3.7 mmoL/L (3.5-5.1); Sodium 143 mmol/L (136-145); Total Protein,Serum 7.3 g/dl (6.3-8.2)
[2021-02-04 05:32] LABS: C-Reactive Protein 23.6 mg/L (0-4)
[2021-02-04 05:46] LABS: Procalcitonin 0.096 ng/mL (0.0-2.0)
[2021-02-04 05:59] LABS: Erythrocyte Sedimentation Rate 70 mm/hr (0-20)
--- NOTE | 2021-02-04 06:44 | HMH.EDGENADL ---
ED Disposition Clinical Impression: Cellulitis Qualifiers: Site of cellulitis: extremity Site of cellulitis of extremity: lower extremity Laterality: right Qualified Code(s): L03.115 - Cellulitis of right lower limb Disposition: Home, Self-Care Condition on Discharge: Good Instructions: Cellulitis Additional Instructions: see pcp tuesday Prescriptions: clindamycin HCL [Clindamycin HCl] 300 mg PO TID #30 cap Transmission Status: Pending to [facility] levoFLOXacin [Levaquin 500mg tab] 500 mg PO DAILY #7 tab Transmission Status: Pending to [facility] Referrals: Hector Wagner APRN [Primary Care Provider] - - Critical Care Critical Care Time: No Attestation: On 02/04/21, the high probability of a clinically significant, sudden or life threatening deterioration of the following system(s) required my full and direct attention, intervention and personal management. The time I documented below is in addition to time spent performing reported procedures but includes the following listed in this critical care notation. Medical Decision Making - Medical Records Medical records reviewed: Yes: I reviewed the patient's medical records. - Kana Inquiry Pt receiving controlled substance: No Vital Signs: 02/04/21 04:08 Temperature 98.6 F Temperature Source Oral Pulse Rate [Right Radial] 69 Respiratory Rate 18 Blood Pressure [Right Arm] 158/74 H Blood Pressure Mean [Right Arm] 102 Blood Pressure Source [Right Arm] Automatic Cuff Blood Pressure Position [Right Arm] Sitting 02 Sat by Pulse Oximetry 98 Oxygen Delivery Method Room Air - Lab Data Lab results reviewed: Yes: I reviewed the patient's lab results. Lab Results 02/04/21 04:39: WBC 10.3, RBC 4.28 L, Hgb 13.0 L, Hct 40.4 L, MCV 94.4 H, MCH 30.5, MCHC 32.3, RDW 14.9, Plt Count 228, MPV 7.4, Neut % (Auto) 65.0, Lymph % (Auto) 25.1, Cochran % (Auto) 4.9, Eos % (Auto) 4.5, Baso % (Auto) 0.4, Neut # (Auto) 6.7, Lymph # (Auto) 2.6, Cochran # (Auto) 0.5, Eos # (Auto) 0.5 H, Baso # (Auto) 0.0, ESR 70 H 02/04/21 04:39: Sodium 143, Potassium 3.7, Chloride 107, Carbon Dioxide 28, Anion Gap 11.7, BUN 20, Creatinine 1.70 H, Estimated Creat Clear 49, Estimated GFR 41 L, Est GFR ( Amer) 49 L, Glucose 187 H, Calcium 9.2, Total Bilirubin 0.4, AST 23, ALT 18, Alkaline Phosphatase 100, C-Reactive Protein 23.6 H, Total Protein 7.3, Albumin 4.2, Globulin 3.1, Albumin/Globulin Ratio 1.4, Procalcitonin 0.096 Result diagrams: 02/04/21 04:39 02/04/21 04:39 Orders (Tests/Meds): ED MEDICATIONS Generic Name Dose Route Start Last Admin Trade Name Freq PRN Reason Stop Dose Admin Vancomycin HCl 1,500 mg/ 250 mls @ 125 mls/hr 02/04/21 07:00 02/04/21 07:04 Sodium Chloride IV 02/04/21 08:59 125 mls/hr ONCE ONE Administration Discontinued Medications Generic Name Dose Route Start Last Admin Trade Name Freq PRN Reason Stop Dose Admin Sodium Chloride 1,000 mls @ 999 mls/hr 02/04/21 04:45 02/04/21 05:01 Sod Chlor 0.9% 1000ml Bag IV 02/04/21 05:45 999 mls/hr .Q1H1M AVINASH Administration Iopamidol 120 ml 02/04/21 07:37 02/04/21 07:38 Iopamidol-370 (76%);100ml Bottle IV 02/04/21 07:38 120 ml ONCE ONE Administration Ketorolac Tromethamine 30 mg 02/04/21 04:44 02/04/21 05:01 Ketorolac 30mg/Ml Vial IV 02/04/21 04:45 30 mg ONCE ONE Administration Sodium Chloride 50 ml 02/04/21 07:37 02/04/21 07:38 0.9 % Sodium Chloride 50 Ml Vial IV 02/04/21 07:38 50 ml ONCE ONE Administration ORDERS Category Date Time Status Blood Culture Stat Micro 02/04/21 04:39 Received Wound Culture and Gram Stain Stat Micro 02/04/21 04:29 Results - CT Data CT Scan: Other (rt lower leg ) Time Received: 08:[address] Reviewed: Yes: I have viewed the radiologist's interpretation Preliminary Findings: Abnormal (pt with no abscess/osteo) Medical Decision Narrative: will refer to dr garcia and see in office this week Gener
--- NOTE | 2021-02-04 06:53 | CT_ITS ---
PROCEDURE INFORMATION: Exam: CT Right Lower Extremity With Contrast; Lower Leg Exam date and time: 02/04/2021 6:53 AM Age: 65 years old Clinical indication: Swelling, leg or foot; Additional info: R/O abcess and osteo TECHNIQUE: Imaging protocol: CT of the Right lower extremity with intravenous contrast was performed. Exam focused on the lower leg. Radiation optimization: All CT scans at this facility use at least one of these dose optimization techniques: automated exposure control; mA and/or kV adjustment per patient size (includes targeted exams where dose is matched to clinical indication); or iterative reconstruction. Contrast material: ISOVUE; Contrast volume: 120 ml; Contrast route: IV; COMPARISON: CR XR TIBIA FIBULA RT 2V 01/31/2021 9:25 AM FINDINGS: Bones/joints: Normal. No acute fracture or dislocation. Soft tissues: Mild circumferential subcutaneous fatty induration and swelling. No evidence of focal mass or fluid collection. IMPRESSION: 1. Mild nonspecific circumferential swelling and subcutaneous fatty induration, perhaps inflammatory. No evidence of abscess. 2. No acute or destructive osseous changes.
--- NOTE | 2021-02-04 06:58 | PC.NURSE ---
[facility] contacted for Vanc dose. They recommend 1000mg IV Q24H. MD ordering 1500mg IV once now
[2021-02-04 09:27] VITALS: BP 150/82; PULSE 58; RESP 18; TEMP 37.1; O2SAT 96
== END 2021-02-04 09:29 | disposition home or self-care (01) ==
PROVIDERS: Emergency Provider Emergency Medicine; PCP Nurse Practitioner Family
DX: L03.115 Cellulitis of right lower limb (principal); E11.65 Type 2 diabetes mellitus with hyperglycemia; I10 Essential (primary) hypertension; E78.5 Hyperlipidemia, unspecified; I25.10 Atherosclerotic heart disease of native coronary artery without angina pectoris; F17.210 Nicotine dependence, cigarettes, uncomplicated; Z79.899 Other long term (current) drug therapy
CPT/HCPCS: 73701; 80053; 84145; 85025; 85651; 86140; 87040; 87070; 87077; 87186; 87205; 96365; 96367; 96375; 99284; J3370; Q9967

== ENCOUNTER → 2021-02-18 08:47 | Outpatient (CLI) | payer MEDICARE, SELFPAY ==
--- NOTE | 2021-02-18 08:48 | NM_ITS ---
PROCEDURE: NM BONE 3 PHASE CLINICAL INDICATION: pain in beg Leg pain with nonhealing abrasion COMPARISON: CT CT LOWER LEG RT W CON from 02/04/2021 FINDINGS: Dose: 24.4 mCi technetium MDP. Blood flow, blood pool, and delayed images are obtained of both legs. There is slight diffuse increase blood flow to the right leg. No focal areas of increased activity apparent Immediate static images show symmetric activity in both lower legs. Delayed static images show slight increased activity along the anterior aspect of the right leg from the proximal to the mid to distal 3rd and a small focal area of increased activity at the tibial tuberosity region. IMPRESSION: There is very slight increased blood flow and delayed activity involving the right lower extremity. The increased activity on the delayed images is along the superficial aspect of the proximal and mid to distal tibia anteriorly a. The overall findings are not typical for osteomyelitis as 1 would expect more intense activity.. Periosteal inflammation or cellulitis is a consideration. MRI without and with contrast may provide further evaluation if clinically desired. Dictated by: Shukri So MD 02/18/2021 17:20 Shukri So MD in [place] 02/18/2021 17:20
== END ==
PROVIDERS: PCP Emergency Medicine; Visit Provider Nurse Practitioner Family
DX: S80.811A Abrasion, right lower leg, initial encounter (principal)
CPT/HCPCS: 78315; A9503

== ENCOUNTER → 2021-08-11 06:27 | Outpatient (CLI) | payer MEDICARE, SELFPAY ==
--- NOTE | 2021-08-11 | CA_ITS ---
APPROVED REPORT Exam: Pharmacologic Technologist: Tracey Gaspar, Ht: 5 ft 8 in Wt: 196 lbs BSA: 2.03 m2 HR: 56 bpm BP: 178/85 mmHg Rhythm: SINUS BRADYCARDIA, POOR R WAVE PROGRESSION Indications: Chest pain, Shortness of Air Medical History Medical History: HTN, Hyperlipidemia, Diabetes Medications: Aspirin,,,,, Fish Oil,,,,, Atorvastatin,,,,, Carvedilol,,,,, Glipizide,,,,, TAMSULOSIN,,,,, Diclofenac,,,,, JanuIVA,,,,, SilDENAFIL,,,,, BactITACIN,,,,, Allergies: AMOXICILLIN Cardiac Risk Factors: HTN, Hyperlipidemia, Diabetes,, Smoking Stress Test Details Test: LEXISCAN HR Resting HR: 59 bpm Max Heart Rate (APMHR): 154.742457 bpm Max HR Achieved: 86 bpm Target HR (85% APMHR): 130.872919 bpm % of APMHR: 55.84 Recovery HR: 75 bpm BP Resting BP: 178/85 mmHg Max BP: 181/83 mmHg Recovery BP: 181.0/83.0 mmHg ECG Resting ECG: SINUS BRADYCARDIA, POOR R WAVE PROGRESSION Clinical Exercise duration: 04:12 min Highest Stage Achieved: Exercise capacity: 1.0 METs Stress ECG Conclusion PT HAD SOA. COUGH. NO CP. NS ST CHANGES IN INFERIOR LEADS. UNREMARKABLE LEXISCAN STRESS. MYOVIEW IMAGES REPORTED SEPARATELY. Electronically signed by : Nilesh Rocha MD 08/12/2021 11:29:28
--- NOTE | 2021-08-11 06:28 | NM_ITS ---
APPROVED REPORT Exam: Nuclear Stress Test Indication: Chest pain, HTN, DM, High cholesterol, Tobacco use, Family history, CAD Patient Location: Outpatient Stress Tech: Tracey Gaspar MA Tech:Twyla Tapia, ARRT, RT (R)(N) Ht: 5 ft 8 in Wt: 185 lbs HR: 59 bpm BP: 178/85 mmHg BSA: 1.98 m2 BMI: 28.1 History: Chest pain, HTN, DM, High cholesterol, Tobacco use, Family history, CAD Procedure: Patient received a 0.4 mg of intravenous Lexiscan, resting heart rate 59 bpm, resting blood pressure 178/85 mmHg, with Lexiscan maximum heart rate achived was 86 bpm which is Less than 85 % of the maximum predicted heart rate and blood pressure was 181/83 mmHg. With Lexiscan, patient denied any complaint of chest pain. Electrocardiogram Resting electrocardiogram shows sinus rhythm, with Lexiscan there is less than 1.[address] segment depression noted from the baseline EKG. The EKG portion of the Lexiscan is nondiagnostic. Cardiac Stress and Resting SPECT Images: Cardiac Stress and Resting SPECT images were obtained using technetium 99m Myoview 29.9 mCi stress and 10.35 mCi at rest. Gated SPECT for analysis of segmental wall motion and calculation of the ejection fraction also done. Cardiac stress and rest SPECT images show uniform myocardial activity without segmental perfusion abnormality, computer derived ejection fraction is 51% with no regional wall motion abnormality, right ventricle is normal size and contractility. Conclusion: 1. The EKG portion of the Lexiscan is nondiagnostic. 2. No scintigraphic evidence of reversible ischemia seen, compared to ejection fraction 51% with no regional wall motion abnormality, right ventricle is normal size and contractility. 3. Normal Lexiscan Myoview study. Electronically signed by : Nilesh Rocha MD 08/12/2021 17:29:25
--- NOTE | 2021-08-11 08:23 | CA_ITS ---
APPROVED REPORT EXAM: Comprehensive 2D, Doppler, and color-flow Echocardiogram Supervisor Rod Placing: Juliette Fernandez RT(R) Ht: 5 ft 8 in Wt: 196lbs BSA: 2.03 BP: 137/83 mmHg Indications: CP, smoker, HTN, DM, SOB, hyperlipidemia, CAD, 4 cardiac stents 2D Dimensions LVOT 2.04 cm (M/F) 1.5-2.5 LA Volume 50.70 mL LA Volume Index 25.09 mL/m2 (M/F) 16-34 M-Mode Dimensions RVDd 3.03 cm (0.9-2.6) LA Diam 4.08 cm (1.9-4.0) LVDd 4.93 cm (3.5-5.7) Ao Diam 2.74 cm (2.0-3.7) LVDs 3.56 cm (3.5-5.7) IVSd 0.87 cm (0.6-1.1) PWd 1.14 cm (0.6-1.1) EF (Teich) 53.70% FS 27.80% EDV (Teich) 114.40 mL ESV (Teich) 53.00 mL LV Diastology E Decel Time 213.00 (160-240 msec) E/A Ratio 0.9 MED E' 5.90 (< 7 cm/sec) E'/MED E' Ratio 13.75 (>14) LAT E' 7.40 (<10 cm/sec) E/LAT E' Ratio 10.96 (>14) Aortic Valve LVOT Max 98.00 (70-110 cm/s) LVOT VTI 23.90 cm AoV Peak Morgan. 286.00 (50-130 cm/s) AO Peak GR. 32.60 mmHg AO Mean GR. 16.10 (<5 mmHg) AO VTI 65.81 (18-25 cm) JEREMY (VTI) 1.19 (2.5-4.5 cm2) Mitral Valve MV E Max Morgan. 81.00 (40-130 cm/s) MV A Velocity 92.00 (40-130 cm/s) E/A Ratio 0.88 MV Decel. Time 213.00 (160-240 ms) MV PHT 62.00 ms Left Ventricle Left atrium is mildly enlarged, left ventricle is normal size, mild concentric left ventricular hypertrophy, visually estimated ejection fraction 55% with no regional wall motion abnormality, grade 1 diastolic dysfunction seen without tissue Doppler evidence of raise left atrial pressure. Right Ventricle Right atrium and right ventricle are normal size and contractility. Aortic Valve Aortic valve is minimally thickened and calcified, mean gradient across aortic valve is 16 mmHg represents mild aortic stenosis, there is no aortic insufficiency. Mitral Valve Mitral valve is grossly normal, there is mild mitral regurgitation. Tricuspid Valve Tricuspid valve grossly normal, there is mild tricuspid regurgitation, tricuspid rotation jet velocity is inadequate for calculation of the right ventricular systolic pressure. Pulmonic Valve Pulmonic valve is poorly visualized. Great Vessels Aortic root is normal size. Inferior vena cava is poorly visualized. Pericardium No significant pericardial effusion noted. Conclusion 1. Mildly enlarged left atrium, normal left ventricular size, mild concentric left ventricular hypertrophy, visually estimated ejection fraction 55% with no regional wall motion abnormality, grade 1 diastolic dysfunction seen without tissue Doppler evidence of raise left atrial pressure. 2. Thickened and calcified aortic valve with mild aortic stenosis. 3. Mild mitral and tricuspid regurgitation. 4. No significant pericardial effusion. 5. Inferior vena cava is poorly visualized. Electronically signed by : Nilesh Rocha MD 08/11/2021 20:39:35
--- NOTE | 2021-08-11 08:27 | HMH.ITSHM ---
Current Home Medications as stated by this patient Azar Verde or promotional representative. []TAMSULOSIN SITAGLIPTIN SILDENAFIL GLIPIZIDE DICLOFENAC CARVEDILOL ASA OMEGA 3 BACITRACIN ATORVASTATIN
== END ==
PROVIDERS: PCP Emergency Medicine; Visit Provider Urology
DX: R07.9 Chest pain, unspecified (principal)
CPT/HCPCS: 78452; 93017; 93306; A9502; J2785

== ENCOUNTER → 2021-08-17 09:15 | Outpatient (CLI) | payer MEDICARE, SELFPAY ==
--- NOTE | 2021-08-17 10:19 | XR_ITS ---
FINAL REPORT TECHNIQUE: 5 views CLINICAL HISTORY: BACK PAIN WITH HISTORY OF CANCER COMPARISON: July 11, 2016 FINDINGS: There is no fracture present. There is no acute malalignment. There are moderate degenerative changes. There is facet arthropathy at multiple levels. There is leftward curvature. There is vacuum phenomena at L2-3. There are vascular calcifications. IMPRESSION: No acute process with degenerative changes as above. Reviewed, Interpreted and Dictated by Irvin Hernandez III, MD Transcribed by ARNOLD Mancilla Authenticated by Irvin Hernandez III, MD on 08/17/2021 11:54:53 AM [facility]
--- NOTE | 2021-08-17 10:32 | XR_ITS ---
FINAL REPORT TECHNIQUE: 3 views CLINICAL HISTORY: .lt scapular pain, h/o colorectal cancer FINDINGS: There is no fracture present. There is no malalignment. There are [id number] degenerative changes with osteophytes. There is mild rightward curvature. IMPRESSION: No acute process with degenerative changes as above. Reviewed, Interpreted and Dictated by Irvin Hernandez III, MD Transcribed by ARNOLD Mancilla Authenticated by Irvin Hernandez III, MD on 08/17/2021 11:54:50 AM [facility]
== END ==
PROVIDERS: PCP Emergency Medicine; Visit Provider Emergency Medicine
DX: M54.50 Low back pain, unspecified (principal); M54.6 Pain in thoracic spine; Z85.9 Personal history of malignant neoplasm, unspecified
CPT/HCPCS: 72072; 72110

== ENCOUNTER → 2022-08-26 07:27 | Outpatient (CLI) | payer MEDICARE, SELFPAY ==
--- NOTE | 2022-08-26 07:35 | CT_ITS ---
FINAL REPORT CLINICAL HISTORY: HX TOBACCO USE current smoker 1ppd x12 years COMPARISON: 12/04/2020 FINDINGS: CTDI vol (mGy): 2.90 DLP: 94.[address] images of the chest were obtained using the low-dose protocol for screening. There is no evidence of mediastinal or hilar mass or adenopathy. No axillary mass or adenopathy is identified. On the lung window images, there is mild emphysema and mild scarring. Small ground-glass nodules in the right upper lobe are stable measuring up to 6 mm. There is a calcified granuloma in the left lower lobe. IMPRESSION: Stable ground-glass nodules in the right upper lobe measuring up to 6 mm. Lung RADS category 2. Recommend 12 month followup low-dose CT for further evaluation. Reviewed, Interpreted and Dictated by Irvin Hernandez III, MD Transcribed by Ricarda Sosa Authenticated and [facility]
== END ==
PROVIDERS: PCP Emergency Medicine; Visit Provider Emergency Medicine
DX: Z87.891 Personal history of nicotine dependence (principal); Z12.2 Encounter for screening for malignant neoplasm of respiratory organs
CPT/HCPCS: 71271

== ENCOUNTER → 2023-01-12 10:03 | Outpatient (CLI) | payer MEDICARE, SELFPAY ==
[2023-01-12 10:16] LABS: MANUAL DIFFERENTIAL MANUAL DIFFERENTIAL (MANUAL DIFF)
[2023-01-12 10:28] LABS: Basophils % 0.4 % (0.1-2.0); Eosinophils # 0.4 K/mm3 (0.0-0.4); Eosinophils % 6.5 % (0.1-12.0); Hematocrit 41.8 % (42.0-52.0); Hemoglobin 13.2 g/dL (14.1-18.0); Lymphocytes # 2.2 K/mm3 (0.7-4.5); Lymphocytes % 36.4 % (10-50); Mean Corpuscular HGB Conc 31.5 g/dL (31.8-35.4); Mean Corpuscular Hemoglobin 31.4 pg (27.0-31.2); Mean Corpuscular Volume 99.6 fl (80-94); Mean Platelet Volume 8.3 fl (7.4-10.4); Monocytes # 0.4 K/mm3 (0.1-1.0); Monocytes % 6.2 % (1.7-9.3); Neutrophils # 3.1 K/mm3 (1.8-7.8); Neutrophils % 50.5 % (37.0-80.0); Platelet Count 180 K/mm3 (142-424); Red Cell Distribution Width 15.1 % (11.5-17.5); White Blood Count 6.2 K/mm3 (4.8-10.8)
[2023-01-12 10:40] LABS: Eosinophils % 3 % (0-3); Lymphocytes % 41 % (10-50); Monocytes % 10 % (2-9); Neutrophils % 46 % (42-76); Platelet Estimate Normal; RBC Morphology Normal; Total Cells Counted 100
[2023-01-12 10:53] LABS: Alanine Aminotransferase 21 U/L (12-78); Alkaline Phosphatase 84 U/L (38-126); Aspartate Amino Transferase 27 U/L (17-59); Bilirubin,Indirect 0.4 mg/dL (0.0-0.9); Bilirubin,Total 0.4 mg/dl (0.2-1.3); Bilirubin,Unconjugated 0.5 mg/dL (0.0-1.1); Blood Urea Nitrogen 23 mg/dl (9-20); Calcium 8.8 mg/dl (8.4-10.2); Carbon Dioxide 30 mmol/L (22.0-30.0); Chloride 106 mmol/L (98-107); Chol/HDL Ratio 3.2 (1-3.5); Cholesterol 99 mg/dl (140-200); Estimated Glomerular Filt Rate 51 ml/min (>60); GFR (African American) 61 ML/MIN (>60); Glucose 171 mg/dl (74-100); HDL Cholesterol 31 mg/dl (40-60); Magnesium 1.9 mg/dl (1.6-2.3); Sodium 140 mmol/L (136-145); Total Protein,Serum 6.5 g/dl (6.3-8.2); Triglycerides 170 mg/dl (30-150); VLDL Cholesterol 34 mg/dL (0-40)
[2023-01-12 11:08] LABS: Free Thyroxine Index 2.8 ug/dL (5.93-13.13); T4 (Thyroxine) 8.2 ug/dl (5.53-11.0); Triiodothryronine (T3) Uptake 34 % (23.5-40.5)
[2023-01-12 11:22] LABS: Thyroid Stimulating Hormone 1.76 uIU/mL (0.465-4.68)
== END ==
PROVIDERS: PCP Emergency Medicine; Visit Provider Nurse Practitioner
DX: R07.9 Chest pain, unspecified (principal); I10 Essential (primary) hypertension; R00.2 Palpitations; D64.9 Anemia, unspecified; R60.0 Localized edema; E66.9 Obesity, unspecified; Z68.32 Body mass index [BMI] 32.0-32.9, adult; Z79.899 Other long term (current) drug therapy
CPT/HCPCS: 80048; 80061; 80076; 83735; 84436; 84443; 84479; 85007; 85014; 85018; 85048; 85049; 93270

== ENCOUNTER 2023-01-21 07:00 | Outpatient (RCR) | payer MEDICARE, SELFPAY | END 2023-02-22 16:05 | disposition home or self-care (01) | LOC: PT 07:00 | PROVIDERS: PCP Emergency Medicine; Visit Provider Emergency Medicine | DX: M54.50 Low back pain, unspecified (principal); M51.16 Intervertebral disc disorders with radiculopathy, lumbar region | CPT/HCPCS: 97035; 97110; 97163 ==

== ENCOUNTER 2023-08-01 09:42 | Outpatient (CLI) | payer MEDICARE, SELFPAY ==
[2023-08-01 09:45] LABS: Microscopic, Urine URINE MICROSCOPIC (MICROSCOPIC)
[2023-08-01 10:42] LABS: Appearance,Urine CLEAR (Clear); Blood, Urine Negative (Negative); Color,Urine YELLOW (Yellow); Glucose,Urine (UA) Negative (Negative); Ketones,Urine TRACE (Negative); Leukocyte Esterase,Urine Negative (Negative); Nitrate,Urine Negative (Negative); Protein,Urine TRACE (Negative); Specific Gravity, Urine >= 1.030 (1.005-1.030); Urobilinogen,Urine 0.2 EU/dl (0.2)
[2023-08-01 11:02] LABS: Bilirubin,Urine 2+ (Negative)
[2023-08-01 11:17] LABS: Bacteria,Urine 1+ /lpf; Squamous Epithelial Cell,Urine Occasional #/hpf (0-5)
== END 2023-08-01 23:59 ==
LOC: LAB.DROPOF 09:44
PROVIDERS: PCP Urology; Visit Provider Urology
DX: N18.9 Chronic kidney disease, unspecified (principal); N39.0 Urinary tract infection, site not specified; R35.1 Nocturia
CPT/HCPCS: 81001

== ENCOUNTER 2023-08-16 12:06 | Outpatient (CLI) | payer MEDICARE, SELFPAY ==
[2023-08-16 12:51] LABS: Alanine Aminotransferase 23 U/L (12-78); Albumin Level 3.8 g/dl (3.5-5.0); Alkaline Phosphatase 92 U/L (38-126); Anion Gap 8.6 mEq/L (5-15); Aspartate Amino Transferase 26 U/L (17-59); Bilirubin,Direct 0.2 mg/dl (0.0-0.4); Bilirubin,Indirect 0.3 mg/dL (0.0-0.9); Bilirubin,Total 0.5 mg/dl (0.2-1.3); Bilirubin,Unconjugated 0.3 mg/dL (0.0-1.1); Blood Urea Nitrogen 29 mg/dl (9-20); Calcium 8.7 mg/dl (8.4-10.2); Carbon Dioxide 30 mmol/L (22.0-30.0); Chloride 104 mmol/L (98-107); Chol/HDL Ratio 4.5 (1-3.5); Cholesterol 112 mg/dl (140-200); Estimated Glomerular Filt Rate 50 ml/min (>60); GFR (African American) 61 ML/MIN (>60); Glucose 252 mg/dl (74-100); HDL Cholesterol 25 mg/dl (40-60); Potassium 4.6 mmoL/L (3.5-5.1); Sodium 138 mmol/L (136-145); Total Protein,Serum 6.3 g/dl (6.3-8.2); Triglycerides 386 mg/dl (30-150); VLDL Cholesterol 77 mg/dL (0-40)
[2023-08-16 13:02] LABS: Direct LDL Cholesterol 57.47 mg/dL (100-129)
[2023-08-16 13:04] LABS: Basophils % 0.3 % (0.1-2.0); Eosinophils # 0.4 K/mm3 (0.0-0.4); Eosinophils % 5.4 % (0.1-12.0); Hematocrit 40.5 % (42.0-52.0); Hemoglobin 13.3 g/dL (14.1-18.0); Lymphocytes # 2.3 K/mm3 (0.7-4.5); Lymphocytes % 34.8 % (10-50); Mean Corpuscular HGB Conc 32.9 g/dL (31.8-35.4); Mean Corpuscular Hemoglobin 33.6 pg (27.0-31.2); Mean Corpuscular Volume 102.2 fl (80-94); Mean Platelet Volume 8.1 fl (7.4-10.4); Monocytes # 0.3 K/mm3 (0.1-1.0); Monocytes % 4.4 % (1.7-9.3); Neutrophils # 3.6 K/mm3 (1.8-7.8); Neutrophils % 55.1 % (37.0-80.0); Platelet Count 163 K/mm3 (142-424); Red Blood Count 3.97 M/mm3 (4.60-6.20); White Blood Count 6.5 K/mm3 (4.8-10.8)
== END 2023-08-16 23:59 ==
LOC: LAB 12:07
PROVIDERS: PCP Emergency Medicine; Visit Provider Internal Medicine
DX: E78.5 Hyperlipidemia, unspecified (principal); I10 Essential (primary) hypertension; I25.10 Atherosclerotic heart disease of native coronary artery without angina pectoris; Z95.5 Presence of coronary angioplasty implant and graft
CPT/HCPCS: 36415; 80048; 80061; 80076; 83735; 85025

== ENCOUNTER 2023-09-20 15:02 | Emergency (ER) | payer MEDICARE, SELFPAY ==
[2023-09-20 15:10] VITALS: BP 170/96; PULSE 65; RESP 18; TEMP 36.8; O2SAT 97; BMI 31.7
--- NOTE | 2023-09-20 15:37 | ED_ITS ---
Discharge Plan Disposition Patient Disposition: Home, Self-Care Condition: Good Prescriptions Prescriptions: New nystatin 100,000 unit/gram cream 1 applic topical TID Qty: 30 0RF No Action aspirin [Aspir-81] 81 mg tablet,delayed release (DR/EC) 81 mg PO DAILY diclofenac sodium [Voltaren Arthritis Pain] 1 % gel 2 g TOPICAL QID Qty: 100 2RF Rx Instructions: apply to back gabapentin 600 mg tablet 600 mg PO QID Patient Comments: TAKE 1 TABLET BY MOUTH THREE TIMES DAILY losartan 100 mg tablet 100 mg PO DAILY oxybutynin chloride 10 mg tablet extended release 24hr 10 mg PO DAILY Qty: 90 0RF tamsulosin 0.4 mg capsule 0.4 mg PO DAILY Qty: 90 0RF tadalafil [Cialis] 10 mg tablet 10 mg PO DAILY Qty: 90 3RF nystatin-triamcinolone 100,000-0.1 unit/g-% cream 1 applic topical BID 30 Days Qty: 30 0RF sildenafil (pulm.hypertension) 20 mg tablet 20 mg PO Q6H Qty: 30 0RF Rx Instructions: TAKE ONE TABLET BY MOUTH DAILY 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 Instructions Additional Instructions/Restrictions: Follow up this week with primary care provider. Use knee brace for extra support. Clinical Impressions Clinical Impression: Arthralgia of knee, left, Ai infection of genital region Instructions Patient Instructions: DI for Chronic Pain -- Adult, DI for Knee Pain, DI for Osteoarthritis, DI for Yeast Infection-Skin Discharge ED Provider: Eliza Zacarais [facility] HPI General Stated complaint: pain in Lt knee, no accident Mode of Arrival: Ambulatory Source of Information: Patient Limitations: No Limitations Time Seen by Provider: 09/20/23 15:10 Description of Symptoms (Recalled from Triage Doc. by RN): Pt has left knee pain for 3-4 days. HEENT Symptoms (Recalled from RN notes): No Resp Symptoms (Recalled from RN notes): No Skin Symptoms (Recalled from RN notes): No MS Symptoms (Recalled from RN notes): Yes Functional Status (Recalled from RN notes): n/a History of Present Illness Provider Complaint: Pt reports 3-4 day history of left knee pain that worsens with activity. He reports history of OA and take Lortab and gabapentin daily. He further reports itching in groin and anal region. He denies treatment of the itching. Related Data Home Medications Medication Instructions Recorded Confirmed aspirin 81 mg tablet,delayed 81 mg PO DAILY Blood thinner 12/04/18 09/20/23 release (Aspir-) atorvastatin 40 mg tablet 40 mg PO DAILY Cholesterol 11/27/20 09/20/23 blood sugar diagnostic 11/27/20 08/29/23 blood-glucose meter 11/27/20 08/29/23 carvedilol 25 mg tablet 25 mg PO BID BP 11/27/20 09/20/23 omega3 300 mg-dha,epa 250 mg-other 1 mg PO DAILY Supplement 11/27/20 09/20/23 omega 3s-fish oil 1,000 mg capsule gabapentin 600 mg tablet 600 mg PO QID 01/12/23 09/20/23 losartan 100 mg tablet 100 mg PO DAILY 01/12/23 09/20/23 Previous Rx's Medication Instructions Recorded diclofenac sodium 1 % topical gel 2 g topical QID #100 grams 12/17/20 (Voltaren Arthritis Pain) sildenafil (pulm.hypertension) 20 20 mg PO Q6H * #30 tabs 12/23/20 mg tablet glipizide 10 mg tablet, extended 10 mg PO BID Diabetes #180 tabs 01/01/21 release 24 hr furosemide 20 mg tablet (Lasix) 20 mg PO DAILY #30 tabs 01/12/23 nystatin-triamcinolone 100,000 1 applic topical BID 30 days #30 08/29/23 unit/g-0.1 % topical cream grams oxybutynin chloride 10 mg 10 mg PO DAILY #90 tabs 08/29/23 tablet,extended release 24 hr tadalafil 10 mg tablet (Cialis) 10 mg PO DAILY #90 tabs 08/29/23 tamsulosin 0.4 mg capsule 0.4 mg PO DAILY PROSTATE #90 caps 08/29/23 nystatin 100,000 unit/gram topical 1 applic topical TID #30 grams 09/20/23 cream Allergies Allergy/AdvReac Type Severity Reaction Status Date / Time amoxicillin [AMOXICILLIN] Allergy Intermediate I-RASH Verified 09/20/23 15:18 Worker's Comp Is this a Worker's Comp case?: No PFSH PFS Disclaimer: The information contained in this section may have been updated after the patient was seen, as this information can be updated by other users. Medical History Palpitations Diarrhea Refused influenza vaccine Tonsillitis Neck pain Lumbar degenerative disc disease Lower extremity neuropathy Lumbar disc herniation with radiculopathy Lumbar degenerative disc disease Lumbar spondylosis Thoracic disc herniation BPH (benign prostatic hyperplasia) Hypertension Hyperlipidemia Diabetes Coronary artery disease Low back pain Type 2 diabetes mellitus Surgical History History of colonoscopy History of colon resection H/O heart artery stent Social History Smoking Status: Current every day smoker tobacco type: cigarettes packs per day: 1 alcohol intake: never substance use type: painkillers current occupational status: other Travel in the last 8 weeks: Inside the [facility] housing: house caffeine: Yes ROS Obtained: Yes All systems reviewed & no additional complaints except as documented Constitutional Constitutional: Reports system reviewed and no additional complaints, except as documented Eyes Eyes: Reports system reviewed and no additional complaints, except as documented ENT Ears, Nose, Mouth, and Throat: Reports system reviewed and no additional complaints, except as documented Cardiovascular Cardiovascular: Reports system reviewed and no additional complaints, except as documented Respiratory Respiratory: Reports system reviewed and no additional complaints, except as documented Gastrointestinal Gastrointestingal: Reports system reviewed and no additional complaints, except as documented Genitourinary Male Genitourinary: Reports system reviewed and no additional complaints, except as documented Musculoskeletal Musculoskeletal: Reports system reviewed and no additional complaints, except as documented, Reports arthralgias, Reports joint stiffness and Reports joint swelling Integumentary/Breasts Skin/Breast: Reports system reviewed and no additional complaints, except as documented, Reports pruritus and Reports rash Neurologic Neurologic: Reports system reviewed and no additional complaints, except as documented Endocrine Endocrine: Reports system reviewed and no additional complaints, except as documented Hematologic/Lymphatic Henatologic/Lymphatic: Reports system reviewed and no additional complaints, except as documented Allergic/Immunologic Allergic/Immunologic: Reports system reviewed and no additional complaints, except as documented Physical Exam General General appearance: alert and in no apparent distress Head Head exam: atraumatic and normocephalic Eye Eye exam: Present normal appearance ENT ENT exam: Present normal exam Neck Neck exam: Present normal inspection Chest Chest inspection: Present normal inspection and symmetric chest wall rise Respiratory Respiratory exam: Present normal lung sounds bilaterally Cardiovascular Cardiovascular exam: Present regular rate and normal rhythm Abdominal Exam Abdominal exam: Present soft Expanded Exam exam: Present erythema Expanded Lower Extremity Exam Left: Hip/Pelvis exam: Present normal inspection Upper leg exam: Present normal inspection Knee exam: Present tenderness, swelling, effusion, knee extension intact and other (pain with flexion) Lower leg exam: Present abrasion Ankle exam: Present normal inspection Foot/toe exam: Present normal inspection Neurovascular/Tendon exam: Present normal capillary refill Gait: observed and normal Back Exam Back exam: Present normal inspection Neurological Exam Neurological exam: Present alert and oriented X3 Psychiatric Psychiatric exam: Present normal affect and normal mood Skin Skin exam: Present warm, dry and rash Expanded Skin Exam Type of lesion: Present rash Distribution: genitals Description: Present erythematous and urticarial Lymphatic Lymphatic Findings: no adenopathy Medical Decision Making Kana Inquiry Pt receiving controlled substance: No Kana was queried for this patient: No Vital Signs: 09/20/23 15:10 Temperature 98.2 F Temperature Source Oral Pulse Rate [Right Radial] 65 Respiratory Rate 18 Blood Pressure [Right Arm] 170/96 H Blood Pressure Mean [Right Arm] 120 Blood Pressure Source [Right Arm] Automatic Cuff Blood Pressure Position [Right Arm] Sitting 02 Sat by Pulse Oximetry 97 Oxygen Delivery Method Room Air Orders (Tests/Meds): ED MEDICATIONS Generic Name Dose Route Start Last Admin Trade Name Freq PRN Reason Stop Dose Admin Dexamethasone Sodium Phosphate 8 mg 09/20/23 15:35 Dexamethasone 4mg/Ml 1ml Vial IM 09/20/23 15:36 ONCE ONE Ketorolac Tromethamine 30 mg 04/02/24 15:35 Ketorolac 60mg/2ml Vial IM 09/20/23 15:36 ONCE ONE
[2023-09-20] MEDS: DEXAMETHASONE 4MG/ML 1ML VIAL 8 MG IM (15:42)
[2023-09-20] MEDS: KETOROLAC 60MG/2ML VIAL 30 MG IM (15:42)
--- NOTE | 2023-09-20 16:01 | ED_ITS ---
Discharge Plan Disposition Patient Disposition: Home, Self-Care Condition: Good Prescriptions Prescriptions: New nystatin 100,000 unit/gram cream 1 applic topical TID Qty: 30 0RF No Action aspirin [Aspir-81] 81 mg tablet,delayed release (DR/EC) 81 mg PO DAILY diclofenac sodium [Voltaren Arthritis Pain] 1 % gel 2 g TOPICAL QID Qty: 100 2RF Rx Instructions: apply to back gabapentin 600 mg tablet 600 mg PO QID Patient Comments: TAKE 1 TABLET BY MOUTH THREE TIMES DAILY losartan 100 mg tablet 100 mg PO DAILY oxybutynin chloride 10 mg tablet extended release 24hr 10 mg PO DAILY Qty: 90 0RF tamsulosin 0.4 mg capsule 0.4 mg PO DAILY Qty: 90 0RF tadalafil [Cialis] 10 mg tablet 10 mg PO DAILY Qty: 90 3RF nystatin-triamcinolone 100,000-0.1 unit/g-% cream 1 applic topical BID 30 Days Qty: 30 0RF sildenafil (pulm.hypertension) 20 mg tablet 20 mg PO Q6H Qty: 30 0RF Rx Instructions: TAKE ONE TABLET BY MOUTH DAILY NEEDED 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 Instructions Additional Instructions/Restrictions: Follow up this week with primary care provider. Use knee brace for extra support. Clinical Impressions Clinical Impression: Arthralgia of knee, left, Ai infection of genital region Instructions Patient Instructions: DI for Chronic Pain -- Adult, DI for Osteoarthritis, DI for Knee Pain, DI for Yeast Infection-Skin Discharge ED Provider[place] Eliza Zacarias [facility] [place] General Stated complaint: pain in Lt knee, no accident Mode of Arrival: Ambulatory Source of Information: Patient Limitations: No Limitations Time Seen by Provider: 09/20/23 15:10 Description of Symptoms (Recalled from Triage Doc. by RN): Pt has left knee pain for 3-4 days. HEENT Symptoms (Recalled from RN notes): No Resp Symptoms (Recalled from RN notes): No Skin Symptoms (Recalled from RN notes): No MS Symptoms (Recalled from RN notes): Yes Functional Status (Recalled from RN notes): n/a Related Data Home Medications Medication Instructions Recorded Confirmed aspirin 81 mg tablet,delayed 81 mg PO DAILY Blood thinner 12/04/18 09/20/23 release (Aspir-) atorvastatin 40 mg tablet 40 mg PO DAILY Cholesterol 11/27/20 09/20/23 blood sugar diagnostic 11/27/20 08/29/23 blood-glucose meter 11/27/20 08/29/23 carvedilol 25 mg tablet 25 mg PO BID BP 11/27/20 09/20/23 omega3 300 mg-dha,epa 250 mg-other 1 mg PO DAILY Supplement 11/27/20 09/20/23 omega 3s-fish oil 1,000 mg capsule gabapentin 600 mg tablet 600 mg PO QID 01/12/23 09/20/23 losartan 100 mg tablet 100 mg PO DAILY 01/12/23 09/20/23 Previous Rx's Medication Instructions Recorded diclofenac sodium 1 % topical gel 2 g topical QID #100 grams 12/17/20 (Voltaren Arthritis Pain) sildenafil (pulm.hypertension) 20 20 mg PO Q6H * #30 tabs 12/23/20 mg tablet glipizide 10 mg tablet, extended 10 mg PO BID Diabetes #180 tabs 01/01/21 release 24 hr furosemide 20 mg tablet (Lasix) 20 mg PO DAILY #30 tabs 01/12/23 nystatin-triamcinolone 100,000 1 applic topical BID 30 days #30 08/29/23 unit/g-0.1 % topical cream grams oxybutynin chloride 10 mg 10 mg PO DAILY #90 tabs 08/29/23 tablet,extended release 24 hr tadalafil 10 mg tablet (Cialis) 10 mg PO DAILY #90 tabs 08/29/23 tamsulosin 0.4 mg capsule 0.4 mg PO DAILY PROSTATE #90 caps 08/29/23 nystatin 100,000 unit/gram topical 1 applic topical TID #30 grams 09/20/23 cream Allergies Allergy/AdvReac Type Severity Reaction Status Date / Time amoxicillin [AMOXICILLIN] Allergy Intermediate I-RASH Verified 09/20/23 15:18 Worker's Comp Is this a Worker's Comp case?: No [facility] Disclaimer: The information contained in this section may have been updated after the patient was seen, as this information can be updated by other users. Medical History Palpitations Diarrhea Refused influenza vaccine Tonsillitis Neck pain Lumbar degenerative disc disease Lower extremity neuropathy Lumbar disc herniation with radiculopathy Lumbar degenerative disc disease Lumbar spondylosis Thoracic disc herniation BPH (benign prostatic hyperplasia) Hypertension Hyperlipidemia Diabetes Coronary artery disease Low back pain Type 2 diabetes mellitus Surgical History History of colonoscopy History of colon resection H/O heart artery stent Social History Smoking Status: Current every day smoker tobacco type: cigarettes packs per day: 1 alcohol intake: never substance use type: painkillers current occupational status: other Travel in the last 8 weeks: Inside the [place] housing: house caffeine: Yes ROS Obtained: Yes All systems reviewed & no additional complaints except as d ocumented Constitutional Constitutional: Reports system reviewed and no additional complaints, except as documented Eyes Eyes: Reports system reviewed and no additional complaints, except as documented ENT Ears, Nose, Mouth, and Throat: Reports system reviewed and no additional complaints, except as documented Cardiovascular Cardiovascular: Reports system reviewed and no additional complaints, except as documented Respiratory Respiratory: Reports system reviewed and no additional complaints, except as documented Gastrointestinal Gastrointestingal: Reports system reviewed and no additional complaints, except as documented Genitourinary Male Genitourinary: Reports system reviewed and no additional complaints, except as documented Musculoskeletal Musculoskeletal: Reports system reviewed and no additional complaints, except as documented, Reports abnormal gait, Reports arthralgias, Reports joint stiffness and Reports joint swelling Integumentary/Breasts Skin/Breast: Reports system reviewed and no additional complaints, except as documented, Reports pruritus and Reports rash Neurologic Neurologic: Reports system reviewed and no additional complaints, except as documented and Reports abnormal gait Endocrine Endocrine: Reports system reviewed and no additional complaints, except as documented Hematologic/Lymphatic Henatologic/Lymphatic: Reports system reviewed and no additional complaints, except as documented Allergic/Immunologic Allergic/Immunologic: Reports system reviewed and no additional complaints, except as documented Physical Exam General General appearance: alert and in no apparent distress Head Head exam: atraumatic and normocephalic Eye Eye exam: Present normal appearance ENT ENT exam: Present normal exam Neck Neck exam: Present normal inspection Chest Chest inspection: Present normal inspection and symmetric chest wall rise Respiratory Respiratory exam: Present normal lung sounds bilaterally Cardiovascular Cardiovascular exam: Present regular rate and normal rhythm Abdominal Exam Abdominal exam: Present soft Expanded Exam exam: Present erythema Comment: yeast rash noted Extremities Exam Extremities exam: Present tenderness Expanded Lower Extremity Exam Left: Hip/Pelvis exam: Present normal inspection Upper leg exam: Present normal inspection Knee exam: Present tenderness, swelling, effusion, knee extension intact and other (pain voiced with flexion) Lower leg exam: Present abrasion Ankle exam: Present normal inspection Foot/toe exam: Present normal inspection Neurovascular/Tendon exam: Present normal capillary refill Gait: observed and limited by pain Back Exam Back exam: Present normal inspection Neurological Exam Neurological exam: Present alert and oriented X3 Psychiatric Psychiatric exam: Present normal affect and normal mood Skin Skin exam: Present warm, dry and intact Lymphatic Lymphatic Findings: no adenopathy Medical Decision Making Kana Inquiry Pt receiving controlled substance: No Kana was queried for this patient: No Vital Signs: 09/20/23 15:10 Temperature 98.2 F Temperature Source Oral Pulse Rate [Right Radial] 65 Respiratory Rate 18 Blood Pressure [Right Arm] 170/96 H Blood Pressure Mean [Right Arm] 120 Blood Pressure Source [Right Arm] Automatic Cuff Blood Pressure Position [Right Arm] Sitting 02 Sat by Pulse Oximetry 97 Oxygen Delivery Method Room Air Orders (Tests/Meds): ED MEDICATIONS Discontinued Medications Generic Name Dose Route Start Last Admin Trade Name Freq PRN Reason Stop Dose Admin Dexamethasone Sodium Phosphate 8 mg 09/20/23 15:35 09/20/23 15:42 Dexamethasone 4mg/Ml 1ml Vial IM 09/20/23 15:36 8 mg ONCE ONE Administration Ketorolac Tromethamine 30 mg 09/20/23 15:35 09/20/23 15:42 Ketorolac 60mg/2ml Vial IM 09/20/23 15:36 30 mg ONCE ONE Administration
[2023-09-20 16:06] VITALS: BP 157/81; PULSE 65; RESP 18; TEMP 36.8; O2SAT 97
--- NOTE | 2023-09-20 16:08 | EXP.UTC ---
Discharge Plan Disposition Patient Disposition: Home, Self-Care Condition: Good Prescriptions Prescriptions: New nystatin 100,000 unit/gram cream 1 applic topical TID Qty: 30 0RF No Action aspirin [Aspir-81] 81 mg tablet,delayed release (DR/EC) 81 mg PO DAILY diclofenac sodium [Voltaren Arthritis Pain] 1 % gel 2 g TOPICAL QID Qty: 100 2RF Rx Instructions: apply to back gabapentin 600 mg tablet 600 mg PO QID Patient Comments: TAKE 1 TABLET BY MOUTH THREE TIMES DAILY losartan 100 mg tablet 100 mg PO DAILY oxybutynin chloride 10 mg tablet extended release 24hr 10 mg PO DAILY Qty: 90 0RF tamsulosin 0.4 mg capsule 0.4 mg PO DAILY Qty: 90 0RF tadalafil [Cialis] 10 mg tablet 10 mg PO DAILY Qty: 90 3RF nystatin-triamcinolone 100,000-0.1 unit/g-% cream 1 applic topical BID 30 Days Qty: 30 0RF sildenafil (pulm.hypertension) 20 mg tablet 20 mg PO Q6H Qty: 30 0RF Rx Instructions: TAKE ONE TABLET BY MOUTH DAILY NEEDED 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 Instructions Additional Instructions/Restrictions: Follow up this week with primary care provider. Use knee brace for extra support. Clinical Impressions Clinical Impression: Arthralgia of knee, left, Ai infection of genital region Instructions Patient Instructions: DI for Chronic Pain -- Adult, DI for Osteoarthritis, DI for Knee Pain, DI for Yeast Infection-Skin Discharge ED Provider: Eliza Zacarias [facility] [place] HPI General Stated complaint: pain in Lt knee, no accident Mode of Arrival: Ambulatory Source of Information: Patient Limitations: No Limitations Time Seen by Provider: 09/20/23 15:10 Description of Symptoms (Recalled from Triage Doc. by RN): Pt has left knee pain for 3-4 days. HEENT Symptoms (Recalled from RN notes): No Resp Symptoms (Recalled from RN notes): No Skin Symptoms (Recalled from RN notes): No MS Symptoms (Recalled from RN notes): Yes Functional Status (Recalled from RN notes): n/a Related Data Home Medications Medication Instructions Recorded Confirmed aspirin 81 mg tablet,delayed 81 mg PO DAILY Blood thinner 12/04/18 09/20/23 release (Aspir-) atorvastatin 40 mg tablet 40 mg PO DAILY Cholesterol 11/27/20 09/20/23 blood sugar diagnostic 11/27/20 08/29/23 blood-glucose meter 11/27/20 08/29/23 carvedilol 25 mg tablet 25 mg PO BID BP 11/27/20 09/20/23 omega3 300 mg-dha,epa 250 mg-other 1 mg PO DAILY Supplement 11/27/20 09/20/23 omega 3s-fish oil 1,000 mg capsule gabapentin 600 mg tablet 600 mg PO QID 01/12/23 09/20/23 losartan 100 mg tablet 100 mg PO DAILY 01/12/23 09/20/23 Previous Rx's Medication Instructions Recorded diclofenac sodium 1 % topical gel 2 g topical QID #100 grams 12/17/20 (Voltaren Arthritis Pain) sildenafil (pulm.hypertension) 20 20 mg PO Q6H * #30 tabs 12/23/20 mg tablet glipizide 10 mg tablet, extended 10 mg PO BID Diabetes #180 tabs 01/01/21 release 24 hr furosemide 20 mg tablet (Lasix) 20 mg PO DAILY #30 tabs 01/12/23 nystatin-triamcinolone 100,000 1 applic topical BID 30 days #30 08/29/23 unit/g-0.1 % topical cream grams oxybutynin chloride 10 mg 10 mg PO DAILY #90 tabs 08/29/23 tablet,extended release 24 hr tadalafil 10 mg tablet (Cialis) 10 mg PO DAILY #90 tabs 08/29/23 tamsulosin 0.4 mg capsule 0.4 mg PO DAILY PROSTATE #90 caps 08/29/23 nystatin 100,000 unit/gram topical 1 applic topical TID #30 grams 09/20/23 cream Allergies Allergy/AdvReac Type Severity Reaction Status Date / Time amoxicillin [AMOXICILLIN] Allergy Intermediate I-RASH Verified 09/20/23 15:18 Worker's Comp Is this a Worker's Comp case?: No [facility] Disclaimer: The information contained in this section may have been updated after the patient was seen, as this information can be updated by other users. Medical History Palpitations Diarrhea Refused influenza vaccine Tonsillitis Neck pain Lumbar degenerative disc disease Lower extremity neuropathy Lumbar disc herniation with radiculopathy Lumbar degenerative disc disease Lumbar spondylosis Thoracic disc herniation BPH (benign prostatic hyperplasia) Hypertension Hyperlipidemia Diabetes Coronary artery disease Low back pain Type 2 diabetes mellitus Surgical History History of colonoscopy History of colon resection H/O heart artery stent Social History Smoking Status: Current every day smoker tobacco type: cigarettes packs per day: 1 alcohol intake: never substance use type: painkillers current occupational status: other Travel in the last 8 weeks: Inside the [place] housing: house caffeine: Yes ROS Obtained: Yes All systems reviewed & no additional complaints except as documented Constitutional Constitutional: Reports system reviewed and no additional complaints, except as documented Eyes Eyes: Reports system reviewed and no additional complaints, except as documented ENT Ears, Nose, Mouth, and Throat: Reports system reviewed and no additional complaints, except as documented Cardiovascular Cardiovascular: Reports system reviewed and no additional complaints, except as documented Respiratory Respiratory: Reports system reviewed and no additional complaints, except as documented Gastrointestinal Gastrointestingal: Reports system reviewed and no additional complaints, except as documented Genitourinary Male Genitourinary: Reports system reviewed and no additional complaints, except as documented Musculoskeletal Musculoskeletal: Reports system reviewed and no additional complaints, except as documented, Reports abnormal gait, Reports arthralgias, Reports joint stiffness and Reports joint swelling Integumentary/Breasts Skin/Breast: Reports system reviewed and no additional complaints, except as documented, Reports pruritus and Reports rash Neurologic Neurologic: Reports system reviewed and no additional complaints, except as documented and Reports abnormal gait Endocrine Endocrine: Reports system reviewed and no additional complaints, except as documented Hematologic/Lymphatic Henatologic/Lymphatic: Reports system reviewed and no additional complaints, except as documented Allergic/Immunologic Allergic/Immunologic: Reports system reviewed and no additional complaints, except as documented Physical Exam General General appearance: alert and in no apparent distress Head Head exam: atraumatic and normocephalic Eye Eye exam: Present normal appearance ENT ENT exam: Present normal exam Neck Neck exam: Present normal inspection Chest Chest inspection: Present normal inspection and symmetric chest wall rise Respiratory Respiratory exam: Present normal lung sounds bilaterally Cardiovascular Cardiovascular exam: Present regular rate and normal rhythm Abdominal Exam Abdominal exam: Present soft exam: Present other Expanded Exam exam: Present other (yeast rash) Extremities Exam Extremities exam: Present tenderness, edema and joint swelling Expanded Lower Extremity Exam Left: Hip/Pelvis exam: Present normal inspection Upper leg exam: Present normal inspection Knee exam: Present tenderness, swelling, effusion and knee extension intact Lower leg exam: Present normal inspection Ankle exam: Present normal inspection Foot/toe exam: Present normal inspection Neurovascular/Tendon exam: Present normal capillary refill Back Exam Back exam: Present normal inspection Neurological Exam Neurological exam: Present alert and oriented X3 Psychiatric Psychiatric exam: Present normal affect and normal mood Skin Skin exam: Present rash Expanded Skin Exam Type of lesion: Present rash Distribution: genitals Description: Present erythematous, macular and papular Lymphatic Lymphatic Findings: no adenopathy Medical Decision Making Kana Inquiry Pt receiving controlled substance: No Kana was queried for this patient: No Vital Signs: 09/20/23 15:10 09/20/23 16:06 Temperature 98.2 F 98.2 F Temperature Source Oral Oral Pulse Rate 65 Pulse Rate [Right Radial] 65 Respiratory Rate 18 18 Blood Pressure 157/81 H Blood Pressure [Right Arm] 170/96 H Blood Pressure Mean [Right Arm] 120 Blood Pressure Source Automatic Cuff Blood Pressure Source [Right Arm] Automatic Cuff Blood Pressure Position Sitting Blood Pressure Position [Right Arm] Sitting 02 Sat by Pulse Oximetry 97 Oxygen Delivery Method Room Air Room Air Orders (Tests/Meds): ED MEDICATIONS Discontinued Medications Generic Name Dose Route Start Last Admin Trade Name Freq PRN Reason Stop Dose Admin Dexamethasone Sodium Phosphate 8 mg 09/20/23 15:35 09/20/23 15:42 Dexamethasone 4mg/Ml 1ml Vial IM 09/20/23 15:36 8 mg ONCE ONE Administration Ketorolac Tromethamine 30 mg 09/20/23 15:35 09/20/23 15:42 Ketorolac 60mg/2ml Vial IM 09/20/23 15:36 30 mg ONCE ONE Administration
== END 2023-09-20 16:05 | disposition home or self-care (01) ==
PROVIDERS: Emergency Provider Nurse Practitioner Family; PCP Emergency Medicine
DX: M25.562 Pain in left knee (principal); B37.49 Other urogenital candidiasis; E11.9 Type 2 diabetes mellitus without complications; E78.5 Hyperlipidemia, unspecified; I11.9 Hypertensive heart disease without heart failure; I25.10 Atherosclerotic heart disease of native coronary artery without angina pectoris; F17.210 Nicotine dependence, cigarettes, uncomplicated; Z95.5 Presence of coronary angioplasty implant and graft; Z79.84 Long term (current) use of oral hypoglycemic drugs
CPT/HCPCS: 96372; 99212; 99214; G0463

== ENCOUNTER 2023-12-09 08:17 | Outpatient (CLI) | payer MEDICARE, SELFPAY ==
--- NOTE | 2023-12-09 08:21 | CT_ITS ---
FINAL REPORT TECHNIQUE: Axial images were obtained from the lung apex to the mid abdomen by computed tomography. This study was performed with techniques to keep radiation doses as low as reasonably achievable (ALARA). Individualized dose reduction techniques using automated exposure control or adjustment of mA and/or kV according to the patient's size were employed. CLINICAL HISTORY: TOBACCO USE 1 ppd x 52 yers COMPARISON: 08/26/2022 FINDINGS: CHEST CT LOW DOSE CTDI vol (mGy): 2.90 DLP (mGy-cm): 107.33 There is no axillary adenopathy. There is no hilar or mediastinal adenopathy. The heart is normal in size. There is no pericardial or pleural effusion. There is a faint ground-glass density in the right middle lobe which is stable well seen on image 38. Oval ground-glass opacity previously seen in the anterior right upper lobe has resolved. No new pulmonary lesion is identified. Limited images of the upper abdomen are unremarkable. IMPRESSION: Stable right middle lobe ground-glass density. Lung RADS category 2. Recommend 12 month follow-up low-dose chest CT. Reviewed, Interpreted and Dictated by Virginia Macdonald MD Transcribed by Hellen Paul Authenticated and . [facility]
== END 2023-12-09 23:59 | disposition home or self-care (01) ==
LOC: RAD 08:17
PROVIDERS: PCP Emergency Medicine; Visit Provider Emergency Medicine
DX: Z87.891 Personal history of nicotine dependence (principal)
CPT/HCPCS: 71271

== ENCOUNTER 2023-12-27 15:06 | Emergency (ER) | payer MEDICARE, SELFPAY ==
--- NOTE | 2023-12-27 15:23 | ED_ITS ---
Discharge Plan Disposition Patient Disposition: Home, Self-Care Condition: Good Prescriptions Prescriptions: New sulfamethoxazole-trimethoprim [Bactrim DS] 800-160 mg Tablet 1 tab PO BID Qty: 20 0RF cephalexin 500 mg capsule 500 mg PO QID Qty: 40 0RF mupirocin 2 % ointment 1 applic topical TID 7 Days Qty: 15 0RF No Action aspirin [Aspir-81] 81 mg tablet,delayed release (DR/EC) 81 mg PO DAILY diclofenac sodium [Voltaren Arthritis Pain] 1 % gel 2 g TOPICAL QID Qty: 100 2RF Rx Instructions: apply to back gabapentin 600 mg tablet 600 mg PO QID Patient Comments: TAKE 1 TABLET BY MOUTH THREE TIMES DAILY losartan 100 mg tablet 100 mg PO DAILY oxybutynin chloride 10 mg tablet extended release 24hr 10 mg PO DAILY Qty: 90 0RF tamsulosin 0.4 mg capsule 0.4 mg PO DAILY Qty: 90 0RF tadalafil [Cialis] 10 mg tablet 10 mg PO DAILY Qty: 90 3RF nystatin-triamcinolone 100,000-0.1 unit/g-% cream 1 applic topical BID 30 Days Qty: 30 0RF sildenafil (pulm.hypertension) 20 mg tablet 20 mg PO Q6H Qty: 30 0RF Rx Instructions: TAKE ONE TABLET BY MOUTH DAILY NEEDED FOR SEXUAL ACTIVITY 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 APART glipizide 10 mg tablet extended release 24hr 10 mg PO BID Qty: 180 0RF furosemide [Lasix] 20 mg tablet 20 mg PO DAILY Qty: 30 2RF nystatin 100,000 unit/gram cream 1 applic topical TID Qty: 30 0RF nystatin 100,000 unit/gram cream 1 applic topical BID 7 Days Qty: 15 0RF nystatin 100,000 unit/gram powder 1 applic topical BID 7 Days Qty: 15 0RF [id number]-epa-fish oil 1 EACH capsule 1 mg PO DAILY atorvastatin 40 MG tablet 40 mg PO DAILY carvedilol 25 MG tablet 25 mg PO BID (DME) blood-glucose meter 1 EACH misc See Rx Instructions .Route .MEDSUPPLY Rx Instructions: As directed (DME) blood sugar diagnostic 1 EACH strip See Rx Instructions .Route .MEDSUPPLY Rx Instructions: As directed Referrals Follow up/Referrals: Daja Ferrara MD [Primary Care Provider] - See instructions Activity Restrictions/Add. Instructions Additional Instructions/Restrictions: Keep the wound clean and dry. Watch the wound for signs of worsening infection, such as worsening redness, swelling, drainage, fever. etc. Take tylenol for pain. Follow up with your regular doctor. 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 GO TO THE ER FOR ANY WORSENING SYMPTOMS OR CONCERNS. Clinical Impressions Clinical Impression: Cellulitis of left foot, Nail bed injury, Diabetes Instructions Patient Instructions: Cellulitis, DI for Nail Bed Injury [place]charge ED Provider[place] [facility] [place] General Stated complaint: LT great toe red swollem Time Seen by Provider: 12/27/23 15:21 History of Present Illness Provider Complaint: He states that around 3 weeks ago he stubbed his left great toe. Since then he has developed redness of the toe and the nail is not adhered to its bed very well. He is a diabetic. He denies any fever. Related Data Home Medications Medication Instructions Recorded Confirmed aspirin 81 mg tablet,delayed 81 mg PO DAILY Blood thinner 12/04/18 12/05/23 release (Aspir-) atorvastatin 40 mg tablet 40 mg PO DAILY Cholesterol 11/27/20 12/05/23 blood sugar diagnostic 11/27/20 12/05/23 blood-glucose meter 11/27/20 12/05/23 carvedilol 25 mg tablet 25 mg PO BID BP 11/27/20 12/05/23 omega3 300 mg-dha,epa 250 mg-other 1 mg PO DAILY Supplement 11/27/20 12/05/23 omega 3s-fish oil 1,000 mg capsule gabapentin 600 mg tablet 600 mg PO QID 01/12/23 12/05/23 losartan 100 mg tablet 100 mg PO DAILY 01/12/23 12/05/23 Previous Rx's Medication Instructions Recorded diclofenac sodium 1 % topical gel 2 g topical QID #100 grams 12/17/20 (Voltaren Arthritis Pain) sildenafil (pulm.hypertension) 20 20 mg PO Q6H * #30 tabs 12/23/20 mg tablet glipizide 10 mg tablet, extended 10 mg PO BID Diabetes #180 tabs 01/01/21 release 24 hr furosemide 20 mg tablet (Lasix) 20 mg PO DAILY #30 tabs 01/12/23 nystatin-triamcinolone 100,000 1 applic topical BID 30 days #30 08/29/23 unit/g-0.1 % topical cream grams oxybutynin chloride 10 mg 10 mg PO DAILY #90 tabs 08/29/23 tablet,extended release 24 hr tadalafil 10 mg tablet (Cialis) 10 mg PO DAILY #90 tabs 08/29/23 tamsulosin 0.4 mg capsule 0.4 mg PO DAILY PROSTATE #90 caps 08/29/23 nystatin 100,000 unit/gram topical 1 applic topical TID #30 grams 09/20/23 cream nystatin 100,000 unit/gram topical 1 applic topical BID 7 days #15 09/29/23 cream grams nystatin 100,000 unit/gram topical 1 applic topical BID 7 days #15 09/29/23 powder grams cephalexin 500 mg capsule 500 mg PO QID #40 caps 12/27/23 mupirocin 2 % topical ointment 1 applic topical TID 7 days #15 12/27/23 grams sulfamethoxazole 800 1 tab PO BID #20 tabs 12/27/23 mg-trimethoprim 160 mg tablet (Bactrim DS) Allergies Allergy/AdvReac Type Severity Reaction Status Date / Time amoxicillin [AMOXICILLIN] Allergy Intermediate I-RASH Verified 12/27/23 15:27 [facility] Disclaimer: The information contained in this section may have been updated after the patient was seen, as this information can be updated by other users. Medical History Palpitations Diarrhea Refused influenza vaccine Tonsillitis Neck pain Lumbar degenerative disc disease Lower extremity neuropathy Lumbar disc herniation with radiculopathy Lumbar degenerative disc disease Lumbar spondylosis Thoracic disc herniation BPH (benign prostatic hyperplasia) Hypertension Hyperlipidemia Diabetes Coronary artery disease Low back pain Type 2 diabetes mellitus Surgical History History of colonoscopy History of colon resection H/O heart artery stent Social History Smoking Status: Current every day smoker tobacco type: cigarettes packs per day: 1 alcohol intake: never substance use type: painkillers current occupational status: other Travel in the last 8 weeks: Inside the [place] housing: house caffeine: Yes ROS Obtained: Yes All systems reviewed & no additional complaints except as documented Constitutional Constitutional: Denies chills and Denies fever(s) Eyes Eyes: Denies eye discharge ENT Ears, Nose, Mouth, and Throat: Denies dizziness, Denies otalgia and Denies sore throat Cardiovascular Cardiovascular: Denies chest pain Respiratory Respiratory: Denies shortness of breath, Denies chest congestion, Denies cough, Denies stridor and Denies wheezing Gastrointestinal Gastrointestingal: Denies nausea or vomiting Musculoskeletal Musculoskeletal: Reports as per HPI Integumentary/Breasts Skin/Breast: Reports as per HPI and Reports redness Neurologic Neurologic: Denies dizziness and Denies paresthesias Allergic/Immunologic Allergic/Immunologic: Denies wheezing Physical Exam General General appearance: alert and in no apparent distress Head Head exam: atraumatic, normocephalic and normal inspection Eye Eye exam: Present normal appearance, PERRL and EOMI ENT ENT exam: Present normal exam, normal oropharynx, mucous membranes moist, TM's normal bilaterally and normal external ear exam Neck Neck exam: Present normal inspection, full ROM and trachea midline; Absent meningismus or lymphadenopathy Chest Chest inspection: Present normal inspection and symmetric chest wall rise; Absent tenderness Respiratory Respiratory exam: Present normal lung sounds bilaterally; Absent respiratory distress Cardiovascular Cardiovascular exam: Present regular rate and normal rhythm; Absent JVD Abdominal Exam Abdominal exam: Present soft and normal bowel sounds; Absent distention, tenderness or guarding Extremities Exam Extremities exam: Present normal capillary refill; Absent calf tenderness Expanded Lower Extremity Exam Left: Lower leg exam: Present normal inspection, full ROM and Achilles tendon intact; Absent tenderness, swelling or Homans' sign Ankle exam: Present normal inspection and full ROM; Absent tenderness or swelling Foot/toe exam: Present full ROM, tenderness, swelling, nail avulsion and subungual hematoma; Absent abrasion, laceration, ecchymosis, deformity, crepitus, dislocation, erythema, amputation, puncture wound, foreign body, calcaneal tenderness or tenderness at base of 5th metatarsal Neurovascular/Tendon exam: Present normal capillary refill, normal 2-point discrimination and normal fine/light touch; Absent pulse deficit, motor deficit, sensory deficit, tendon deficit, extremity cold to touch or pallor Gait: observed and normal Back Exam Back exam: Present normal inspection; Absent tenderness Neurological Exam Neurological exam: Present alert and oriented X3 Psychiatric Psychiatric exam: Present normal affect and normal mood Skin Skin exam: Present erythema (there is erythema of his left great toe and the area around its base. That nail is somewhat loose from its nail bed. There is mild edema also. No drainage noted. ) Lymphatic Lymphatic Findings: no adenopathy Medical Decision Making Medical Records Medical records reviewed: No I reviewed the patient's medical records. Kana Inquiry Pt receiving controlled substance: No
[2023-12-27 15:24] VITALS: BP 154/74; PULSE 65; RESP 20; TEMP 36.9; O2SAT 95; BMI 32.1
--- NOTE | 2023-12-27 15:32 | XR_ITS ---
FINAL REPORT CLINICAL HISTORY: stubbed big toe 2 weeks ago. still red and painful COMPARISON: None FINDINGS: LEFT FOOT Three views of the left foot demonstrate no acute fracture or dislocation. There is mild degenerative change. Pes planus deformity is noted. Plantar calcaneal spur is present. The soft tissues are unremarkable. IMPRESSION: No acute bony abnormality. Reviewed, Interpreted and Dictated by Irvin Hernandez III, MD Transcribed by Gilma Gibbs Authenticated and [facility]
[2023-12-27 16:46] VITALS: BP 154/74; PULSE 65; RESP 20; TEMP 36.9
== END 2023-12-27 16:47 | disposition home or self-care (01) ==
PROVIDERS: Emergency Provider Nurse Practitioner Family; PCP Emergency Medicine
DX: L03.116 Cellulitis of left lower limb (principal); S90.212A Contusion of left great toe with damage to nail, initial encounter; E11.9 Type 2 diabetes mellitus without complications; Z79.84 Long term (current) use of oral hypoglycemic drugs; W22.8XXA Striking against or struck by other objects, initial encounter
CPT/HCPCS: 73630; 99212; 99214; G0463

== ENCOUNTER 2024-01-11 15:20 | Outpatient (CLI) | payer MEDICARE, SELFPAY ==
--- NOTE | 2024-01-11 15:28 | XR_ITS ---
FINAL REPORT CLINICAL HISTORY: Foot pain FINDINGS: Left foot THREE VIEW FINDINGS: Three views show no evidence of an acute, displaced fracture or dislocation of the visualized bony architecture. The joint spaces appear normal. Pes planus deformity is present. IMPRESSION: Unremarkable exam. Authenticated and [facility]
--- NOTE | 2024-01-11 15:28 | XR_ITS ---
FINAL REPORT CLINICAL HISTORY: Foot pain FINDINGS: Right foot THREE VIEW FINDINGS: Three views show no evidence of an acute, displaced fracture or dislocation of the visualized bony architecture. Mild degenerative joint disease is present. Minimal calcaneal spurring is present. There is mild pes planus deformity. IMPRESSION: Degenerative changes. No acute bony abnormality . Authenticated and [facility]
== END 2024-01-11 23:59 | disposition home or self-care (01) ==
LOC: RAD 15:24
PROVIDERS: Visit Provider Nurse Practitioner
DX: M79.671 Pain in right foot (principal); M79.672 Pain in left foot
CPT/HCPCS: 73630

== ENCOUNTER 2024-01-17 10:32 | Outpatient (POV) | payer MEDICARE, SELFPAY | END 2024-01-17 23:59 | disposition home or self-care (01) | LOC: SC 10:33 | PROVIDERS: Visit Provider Dermatology | DX: Z00.00 Encounter for general adult medical examination without abnormal findings (principal) ==

== ENCOUNTER 2024-02-08 16:00 | Emergency (ER) | payer MEDICARE, SELFPAY ==
[2024-02-08 16:15] VITALS: BP 118/51; PULSE 74; RESP 18; TEMP 36.6; O2SAT 94; BMI 30.5
--- NOTE | 2024-02-08 16:59 | ED_ITS ---
Discharge Plan Disposition Patient Disposition: Home, Self-Care Condition: Good Prescriptions Prescriptions: New mupirocin 2 % ointment 1 applic topical TID Qty: 15 0RF Rx Instructions: apply to blister on buttock as directed No Action aspirin [Aspir-81] 81 mg tablet,delayed release (DR/EC) 81 mg PO DAILY diclofenac sodium [Voltaren Arthritis Pain] 1 % gel 2 g TOPICAL QID Qty: 100 2RF Rx Instructions: apply to back gabapentin 600 mg tablet 600 mg PO QID Patient Comments: TAKE 1 TABLET BY MOUTH THREE TIMES DAILY losartan 100 mg tablet 100 mg PO DAILY oxybutynin chloride 10 mg tablet extended release 24hr 10 mg PO DAILY Qty: 90 0RF tamsulosin 0.4 mg capsule 0.4 mg PO DAILY Qty: 90 0RF tadalafil [Cialis] 10 mg tablet 10 mg PO DAILY Qty: 90 3RF nystatin-triamcinolone 100,000-0.1 unit/g-% cream 1 applic topical BID 30 Days Qty: 30 0RF Jardiance 25 mg tablet PO DAILY mupirocin 2 % ointment 1 applic topical BID 10 Days Qty: 15 0RF polyethylene glycol 3350 [Miralax] 17 gram/dose powder 17 g PO DAILY Qty: 510 0RF doxycycline hyclate 100 mg capsule 100 mg PO BID 14 Days Qty: 28 0RF sildenafil (pulm.hypertension) 20 mg tablet 20 mg PO Q6H Qty: 30 0RF Rx Instructions: TAKE ONE TABLET BY MOUTH DAILY NEEDED FOR SEXUAL ACTIVITY 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 APART glipizide 10 mg tablet extended release 24hr 10 mg PO BID Qty: 180 0RF furosemide [Lasix] 20 mg tablet 20 mg PO DAILY Qty: 30 2RF nystatin 100,000 unit/gram cream 1 applic topical TID Qty: 30 0RF nystatin 100,000 unit/gram cream 1 applic topical BID 7 Days Qty: 15 0RF nystatin 100,000 unit/gram powder 1 applic topical BID 7 Days Qty: 15 0RF cjrhm-[id number]-bab-epa-fish oil 1 EACH capsule 1 mg PO DAILY atorvastatin 40 MG tablet 40 mg PO DAILY carvedilol 25 MG tablet 25 mg PO BID (DME) blood-glucose meter 1 EACH misc See Rx Instructions .Route .MEDSUPPLY Rx Instructions: As directed (DME) blood sugar diagnostic 1 EACH strip See Rx Instructions .Route .MEDSUPPLY Rx Instructions: As directed gabapentin 600 mg tablet 600 mg PO DAILY ketoconazole 2 % shampoo 1 applic TOPICAL DAILY triamcinolone acetonide 0.025 % cream 1 applic TOPICAL DAILY tamsulosin 0.4 mg capsule 0.4 mg PO DAILY hydrocodone-acetaminophen 7.5-325 mg tablet 1 tab PO Q6H fluocinonide 0.05 % solution 1 applic TOPICAL DAILY Referrals Follow up/Referrals: Daja Ferrara MD [Primary Care Provider] - See instructions Activity Restrictions/Add. Instructions Additional Instructions/Restrictions: Follow instructions that you was given by Podiatry for your left great toe Use topical ointment on blister on buttock area as directed Follow up with Podiatry as scheduled Follow up with your Family Doctor if no improvement or any worsening of symptoms Clinical Impressions Clinical Impression: Skin problem Instructions Patient Instructions: Mupirocin Print Language Print Language: Ethiopian Discharge ED Provider: Elsie Shaikh [facility] [place] H[place] General Stated complaint: LT great toe pain, spot on buttocks wont heal Mode of Arrival: Ambulatory Source of Information: Patient Limitations: No Limitations Time Seen by Provider: 02/08/24 16:59 Description of Symptoms (Recalled from Triage Doc. by RN): PATIENT STATES HE HAS A CUT ON BUTTOCKS THAT WON'T HEAL AND HE HAD A TOE NAIL REMOVED 6 WEEKS AGO THAT IS STILL SORE HEENT Symptoms (Recalled from RN notes): No Resp Symptoms (Recalled from RN notes): No Skin Symptoms (Recalled from RN notes): Yes MS Symptoms (Recalled from RN notes): No Functional Status (Recalled from RN notes): WNL History of Present Illness Provider Complaint: Patient states that he has a cut on his right buttock area that has been there for a week or so that has not got any better States also he had his left great toenail removed about 6wks ago and it is still sore wanted to get it looked at to make sure that it is not getting infected Related Data Home Medications ?Medication ?Instructions ?Recorded ?Confirmed aspirin 81 mg tablet,delayed 81 mg PO DAILY Blood thinner 12/04/18 02/01/24 release (Aspir-) atorvastatin 40 mg tablet 40 mg PO DAILY Cholesterol 11/27/20 02/01/24 blood sugar diagnostic 11/27/20 02/01/24 blood-glucose meter 11/27/20 02/01/24 carvedilol 25 mg tablet 25 mg PO BID BP 11/27/20 02/01/24 omega3 300 mg-dha,epa 250 mg-other 1 mg PO DAILY Supplement 11/27/20 02/01/24 omega 3s-fish oil 1,000 mg capsule gabapentin 600 mg tablet 600 mg PO QID 01/12/23 02/01/24 losartan 100 mg tablet 100 mg PO DAILY 01/12/23 02/01/24 empagliflozin 25 mg tablet mg PO DAILY 01/11/24 02/01/24 (Jardiance) fluocinonide 0.05 % topical 1 applic topical DAILY 02/08/24 02/08/24 solution gabapentin 600 mg tablet 600 mg PO DAILY 02/08/24 02/08/24 hydrocodone 7.5 mg-acetaminophen 1 tab PO Q6H 02/08/24 02/08/24 325 mg tablet ketoconazole 2 % shampoo 1 applic topical DAILY 02/08/24 02/08/24 tamsulosin 0.4 mg capsule 0.4 mg PO DAILY 02/08/24 02/08/24 triamcinolone acetonide 0.025 % 1 applic topical DAILY 02/08/24 02/08/24 topical cream Previous Rx's ?Medication ?Instructions ?Recorded diclofenac sodium 1 % topical gel 2 g topical QID #100 grams 12/17/20 (Voltaren Arthritis Pain) sildenafil (pulm.hypertension) 20 20 mg PO Q6H * #30 tabs 12/23/20 mg tablet glipizide 10 mg tablet, extended 10 mg PO BID Diabetes #180 tabs 01/01/21 release 24 hr furosemide 20 mg tablet (Lasix) 20 mg PO DAILY #30 tabs 01/12/23 nystatin-triamcinolone 100,000 1 applic topical BID 30 days #30 08/29/23 unit/g-0.1 % topical cream grams oxybutynin chloride 10 mg 10 mg PO DAILY #90 tabs 08/29/23 tablet,extended release 24 hr tadalafil 10 mg tablet (Cialis) 10 mg PO DAILY #90 tabs 08/29/23 tamsulosin 0.4 mg capsule 0.4 mg PO DAILY PROSTATE #90 caps 08/29/23 nystatin 100,000 unit/gram topical 1 applic topical TID #30 grams 09/20/23 cream nystatin 100,000 unit/gram topical 1 applic topical BID 7 days #15 09/29/23 cream grams nystatin 100,000 unit/gram topical 1 applic topical BID 7 days #15 09/29/23 powder grams mupirocin 2 % topical ointment 1 applic topical BID infection 10 01/11/24 days #15 grams polyethylene glycol 3350 17 17 g PO DAILY #510 grams 01/11/24 gram/dose oral powder (Miralax) doxycycline hyclate 100 mg capsule 100 mg PO BID infection 14 days 01/13/24 #28 caps mupirocin 2 % topical ointment 1 applic topical TID #15 grams 02/08/24 Allergies Allergy/AdvReac Type Severity Reaction Status Date / Time amoxicillin [AMOXICILLIN] Allergy Intermediate I-RASH Verified 02/01/24 11:11 Worker's Comp Is this a Worker's Comp case?: No [facility] Disclaimer: The information contained in this section may have been updated after the patient was seen, as this information can be updated by other users. Medical History Palpitations Diarrhea Refused influenza vaccine Tonsillitis Neck pain Lumbar degenerative disc disease Lower extremity neuropathy Lumbar disc herniation with radiculopathy Lumbar degenerative disc disease Lumbar spondylosis Thoracic disc herniation BPH (benign prostatic hyperplasia) Hypertension Hyperlipidemia Diabetes Coronary artery disease Low back pain Type 2 diabetes mellitus Surgical History History of colonoscopy History of colon resection H/O heart artery stent Social History Smoking Status: Current every day smoker tobacco type: cigarettes packs per day: 1 alcohol intake: never substance use type: painkillers current occupational status: other Travel in the last 8 weeks: Inside the [place] housing: house caffeine: Yes ROS Obtained: Yes All systems reviewed & no additional complaints except as documented and Yes Systems reviewed as appropriate & no additional complaints except as documented Constitutional Constitutional: Reports system reviewed and no additional complaints, except as documented and Reports as per HPI ENT Ears, Nose, Mouth, and Throat: Reports system reviewed and no additional complaints, except as documented and Reports as per HPI Cardiovascular Cardiovascular: Reports system reviewed and no additional complaints, except as documented and Reports as per HPI Respiratory Respiratory: Reports system reviewed and no additional complaints, except as documented and Reports as per HPI Integumentary/Breasts Skin/Breast: Reports system reviewed and no additional complaints, except as documented and Reports as per HPI Comments: cut/blister on his right buttock area and left great toe check Physical Exam General General appearance: alert and in no apparent distress ENT ENT exam: Present mucous membranes moist Respiratory Respiratory exam: Present normal lung sounds bilaterally; Absent respiratory distress or wheezes Cardiovascular Cardiovascular exam: Present regular rate, normal rhythm and normal heart sounds Expanded Lower Extremity Exam Left: Top foot image: 2 1. area where left great toenail removed appears pink, no signs of infection reports still sore and tender Neurological Exam Neurological exam: Present alert, oriented X3 and normal gait Skin Skin exam: Present other Expanded Skin Exam Body image: 2 1. small blister like area noted no drainage no redness Medical Decision Making Kana Inquiry Pt receiving controlled substance: No Kana was queried for this patient: No Vital Signs: 02/08/24 16:15 Temperature 97.9 F Temperature Source Oral Pulse Rate [Left Brachial] 74 Respiratory Rate 18 Blood Pressure [Left Arm] 118/51 L Blood Pressure Mean [Left Arm] 73 Blood Pressure Source [Left Arm] Automatic Cuff Blood Pressure Position [Left Arm] Sitting 02 Sat by Pulse Oximetry 94 L Oxygen Delivery Method Room Air
[2024-02-08 17:05] VITALS: BP 118/51; PULSE 74; RESP 18; TEMP 36.6; O2SAT 94
== END 2024-02-08 17:07 | disposition home or self-care (01) ==
PROVIDERS: Emergency Provider Nurse Practitioner; PCP Emergency Medicine
DX: L98.9 Disorder of the skin and subcutaneous tissue, unspecified (principal); M79.675 Pain in left toe(s)
CPT/HCPCS: 99212; 99214; G0463

== ENCOUNTER 2024-04-17 15:29 | Outpatient (CLI) | payer MEDICARE, SELFPAY ==
[2024-04-17 15:43] LABS: Microscopic, Urine URINE MICROSCOPIC (MICROSCOPIC)
[2024-04-17 16:08] LABS: Basophils # 0.1 K/mm3 (0-0.2); Basophils % 0.8 % (0.1-2.0); Eosinophils # 0.4 K/mm3 (0.0-0.4); Eosinophils % 5.8 % (0.1-12.0); Hematocrit 41.6 % (42.0-52.0); Hemoglobin 13.5 g/dL (14.1-18.0); Lymphocytes # 2.7 K/mm3 (0.7-4.5); Mean Corpuscular HGB Conc 32.3 g/dL (31.8-35.4); Mean Corpuscular Hemoglobin 31.2 pg (27.0-31.2); Mean Corpuscular Volume 96.5 fl (80-94); Mean Platelet Volume 8.1 fl (7.4-10.4); Monocytes # 0.4 K/mm3 (0.1-1.0); Monocytes % 5.4 % (1.7-9.3); Neutrophils # 3.4 K/mm3 (1.8-7.8); Platelet Count 162 K/mm3 (142-424); Red Blood Count 4.31 M/mm3 (4.60-6.20); Red Cell Distribution Width 15.4 % (11.5-17.5); White Blood Count 6.9 K/mm3 (4.8-10.8)
[2024-04-17 16:43] LABS: Albumin Level 4.1 g/dl (3.5-5.0); Anion Gap 15.1 mEq/L (5-15); Blood Urea Nitrogen 24 mg/dl (9-20); Calcium 9.1 mg/dl (8.4-10.2); Carbon Dioxide 29 mmol/L (22.0-30.0); Chloride 103 mmol/L (98-107); Estimated Glomerular Filt Rate 43 ml/min (>60); GFR (African American) 52 ML/MIN (>60); Glucose 125 mg/dl (74-100); Potassium 5.1 mmoL/L (3.5-5.1); Sodium 142 mmol/L (136-145)
[2024-04-17 16:59] LABS: 25-OH Vitamin D, Total 66.8 ng/mL (30-100)
[2024-04-17 17:34] LABS: Appearance,Urine CLEAR (Clear); Bilirubin,Urine Negative (Negative); Blood, Urine Negative (Negative); Color,Urine YELLOW (Yellow); Glucose,Urine (UA) 3+ (Negative); Ketones,Urine Negative (Negative); Leukocyte Esterase,Urine Negative (Negative); Nitrate,Urine Negative (Negative); Protein,Urine Negative (Negative); Specific Gravity, Urine 1.015 (1.005-1.030); Urobilinogen,Urine 0.2 EU/dl (0.2)
[2024-04-17 17:55] LABS: Bacteria,Urine Trace /lpf; Squamous Epithelial Cell,Urine Occasional #/hpf (0-5); WBC,Urine Occasional #/hpf (0-3)
[2024-04-17 17:57] LABS: Creatinine,Urine Random 64 mg/dL (Not Estab.)
[2024-04-19 14:36] LABS: Intact Parathyroid Hormone 50.6 pg/mL (7.5-53.5)
== END 2024-04-17 23:59 | disposition home or self-care (01) ==
LOC: LAB 15:32
PROVIDERS: PCP Emergency Medicine; Visit Provider Internal Medicine Nephrology
DX: N18.31 Chronic kidney disease, stage 3a (principal); E55.9 Vitamin D deficiency, unspecified
CPT/HCPCS: 36415; 80069; 81001; 82306; 82570; 83970; 84156; 85025

== ENCOUNTER 2024-05-03 10:10 | Outpatient (CLI) | payer MEDICARE, SELFPAY ==
--- NOTE | 2024-05-03 10:22 | US_ITS ---
FINAL REPORT CLINICAL HISTORY: PAIN COMPARISON: None FINDINGS: RENAL ULTRASOUND: The right kidney measures 11.1 cm in length. No evidence of hydronephrosis or mass is seen. The left kidney measures 11.5 cm in length. No evidence of hydronephrosis or mass is seen. IMPRESSION: Kidneys normal in size, without evidence of hydronephrosis or mass. Reviewed, Interpreted and Dictated by Irvin Hernandez III, MD Transcribed by Laura Duran Authenticated and [facility]
== END 2024-05-03 23:59 | disposition home or self-care (01) ==
LOC: RAD 10:12
PROVIDERS: PCP Emergency Medicine; Visit Provider Student in an Organized Health Care Education/Training Program
DX: E11.22 Type 2 diabetes mellitus with diabetic chronic kidney disease (principal); N18.30 Chronic kidney disease, stage 3 unspecified
CPT/HCPCS: 76770

== ENCOUNTER 2024-09-03 11:00 | Outpatient (CLI) | payer MEDICARE, SELFPAY | END 2024-09-03 23:59 | disposition home or self-care (01) | LOC: LAB.DROPOF 09-04 14:25 | PROVIDERS: PCP Nurse Practitioner; Visit Provider Nurse Practitioner | DX: S91.309A Unspecified open wound, unspecified foot, initial encounter (principal); L60.0 Ingrowing nail | CPT/HCPCS: 87070; 87077; 87186; 87205 ==

== ENCOUNTER 2024-10-16 08:10 | Outpatient (CLI) | payer MEDICARE, SELFPAY ==
--- NOTE | 2024-10-16 | CA_ITS ---
APPROVED REPORT EXAM: Comprehensive 2D, Doppler, and color-flow Echocardiogram Hotel Operations Manager: [place] Chakraobrty RVT Ht: 5 ft 8 in Wt: 192lbs BSA: 2.01 BP: 128/66 mmHg Indications: PRE-OP,HTN,HLD,DM,PALPS,CAD,NCIOLE,SMOKER,MILD ,DD 2D Dimensions IVSd 0.67 cm M: 0.6-1.2 LVEF (Visual) 63.50 % PWd 1.20 cm M: 0.6 - 1.2 LA Volume 52.00 mL LVDd 5.38 cm M: 4.2 - 5.9 LA Volume Index 25.87 mL/m2 (M/F) 16-34 LVDs 3.51 cm M: 2.5 - 4.0 M-Mode Dimensions LA Diam 4.54 cm (1.9-4.0) TAPSE 3.34 (<1.7) LV Diastology E Decel Time 150 (160-240 msec) E/A Ratio 1.3 Aortic Valve JEREMY Index 1.51 cm2/m2 AoV Peak Morgan. 137.0 (50-130 cm/s) AO Peak GR. 7.50 mmHg AO Mean GR. 4.20 (<5 mmHg) AO VTI 34.1 (18-25 cm) JEREMY (VTI) 3.12 (2.5-4.5 cm2) Mitral Valve MV E Max Morgan. 96.0 (40-130 cm/s) MV A Velocity 75.0 (40-130 cm/s) E/A Ratio 1.29 MV PHT 44.0 ms Pulmonary Valve PV Peak Velocity 70.0 (50-150 cm/s) Tricuspid Valve TR P. Velocity 221.00 cm/s RAP Estimate 10.00 mmHg RVSP 29.60 mmHg Left Ventricle The left ventricle is normal size. The left ventricular systolic function is normal. The left ventricular ejection fraction is within the normal range. There is increased LV wall thickness. There is normal LV segmental wall motion. The left ventricular diastolic function is normal. LVEF is 60%. Right Ventricle The right ventricle is mildly dilated. The right ventricular systolic function is normal. Atria The left atrium is mildly dilated. The right atrium size is normal. There is no Doppler evidence of interatrial shunt. Aortic Valve Aortic valve is mildly thickened. Trace aortic regurgitation. There is no hemodynamically significant aortic valvular stenosis. Mitral Valve The mitral valve is normal in structure. Mild mitral regurgitation. Tricuspid Valve Tricuspid valve is grossly normal in structure and function. Trace tricuspid regurgitation. Pulmonic Valve The pulmonary valve is normal in structure. Trace pulmonic regurgitation. Great Vessels The aortic root is normal in size. IVC is normal in size and collapses >50% with inspiration. Pericardium There is no pericardial effusion. Other Information Study Quality: Fair Conclusion Normal biventricular systolic function. Mild RV dilation. Mild LA dilation. Mild MR. Electronically signed by : Peggy Lara MD 10/16/2024 11:53:33
== END 2024-10-16 23:59 | disposition home or self-care (01) ==
LOC: RT 08:11
PROVIDERS: Visit Provider Physician Assistant
DX: I35.0 Nonrheumatic aortic (valve) stenosis (principal)
CPT/HCPCS: 93306

== ENCOUNTER 2024-11-21 11:00 | Outpatient (CLI) | payer MEDICARE, SELFPAY ==
[2024-11-21 12:03] LABS: Basophils % 0.5 % (0.1-2.0); Eosinophils # 0.4 Kmm3 (0.0-0.4); Eosinophils % 6.1 % (0.1-12.0); Hematocrit 39.4 % (42.0-52.0); Hemoglobin 12.5 g/dL (14.1-18.0); Immature Granulocytes # 0.01 10^3uL; Immature Granulocytes % 0.2 %; Lymphocytes # 2.6 K/mm3 (0.7-4.5); Lymphocytes % 43.1 % (10-50); Mean Corpuscular HGB Conc 31.7 g/dL (31.8-35.4); Mean Corpuscular Hemoglobin 31.6 pg (27.0-31.2); Mean Corpuscular Volume 99.5 fl (80-94); Mean Platelet Volume 9.8 fl (7.4-10.4); Monocytes # 0.4 K/mm3 (0.1-1.0); Monocytes % 6.6 % (1.7-9.3); Neutrophils # 2.6 K/mm3 (1.8-7.8); Neutrophils % 43.5 % (37.0-80.0); Nucleated Red Blood Cells # 0 10^3/uL; Nucleated Red Blood Cells % 0 %; Platelet Count 137 K/mm3 (142-424); Red Blood Count 3.96 M/mm3 (4.60-6.20); Red Cell Distribution Width 14.3 % (11.5-17.5); Red Cell Distribution Width-SD 52.9 fL; White Blood Count 5.9 K/mm3 (4.8-10.8)
[2024-11-21 12:06] LABS: Chloride 108 mmol/L (98-107); Sodium 140 mmol/L (136-145)
[2024-11-21 12:07] LABS: Potassium 4.5 mmoL/L (3.5-5.1)
[2024-11-21 12:09] LABS: Blood Urea Nitrogen 24 mg/dl (9-20); Estimated Glomerular Filt Rate 46 ml/min (>60); GFR (African American) 56 ML/MIN (>60)
[2024-11-21 12:10] LABS: Anion Gap 10.5 mEq/L (5-15); Calcium 8.9 mg/dl (8.4-10.2); Carbon Dioxide 26 mmol/L (22.0-30.0); Glucose 161 mg/dl (74-100)
[2024-11-21 12:27] LABS: Microscopic, Urine URINE MICROSCOPIC (MICROSCOPIC)
[2024-11-21 12:31] LABS: Appearance,Urine CLEAR (Clear); Bilirubin,Urine Negative (Negative); Blood, Urine Negative (Negative); Color,Urine YELLOW (Yellow); Glucose,Urine (UA) 3+ (Negative); Ketones,Urine Negative (Negative); Leukocyte Esterase,Urine Negative (Negative); Nitrate,Urine Negative (Negative); Protein,Urine Negative (Negative); Urobilinogen,Urine 0.2 EU/dl (0.2)
== END 2024-11-21 23:59 | disposition home or self-care (01) ==
LOC: PREOP 11:02
PROVIDERS: PCP Emergency Medicine; Visit Provider Surgery
DX: Z01.812 Encounter for preprocedural laboratory examination (principal); K82.8 Other specified diseases of gallbladder; K81.9 Cholecystitis, unspecified
CPT/HCPCS: 80048; 81001; 85025

== ENCOUNTER 2024-11-29 06:46 | Day surgery (SDC) | payer MEDICARE, SELFPAY ==
[2024-11-21 13:02] VITALS: BMI 29.7
[2024-11-29] VITALS (9 sets, daily range): BP systolic 121–149; BP diastolic 55–92; PULSE 56–64; RESP 18–20; TEMP 36.3–36.7; O2SAT 2–99
[2024-11-29 07:27] LABS: POC Glucose,Bedside 55 (70-110)
--- NOTE | 2024-11-29 07:38 | EXP.ANES.CKL ---
[facility] Disclaimer: The information contained in this section may have been updated after the patient was seen, as this information can be updated by other users. Medical History Gallbladder sludge Palpitations Diarrhea Refused influenza vaccine Tonsillitis Neck pain Lumbar degenerative disc disease Lower extremity neuropathy Lumbar disc herniation with radiculopathy Lumbar degenerative disc disease Lumbar spondylosis Thoracic disc herniation BPH (benign prostatic hyperplasia) Hypertension Hyperlipidemia Diabetes Coronary artery disease Low back pain Type 2 diabetes mellitus Surgical History History of colonoscopy History of colon resection H/O heart artery stent Family History Other Family history of essential hypertension Family history of heart disease Social History Smoking Status: Current every day smoker tobacco type: cigarettes packs per day: 1 alcohol intake: never substance use type: painkillers current occupational status: retired Travel in the last 8 weeks?: Inside the [facility] housing: house caffeine: Yes Have you lived/traveled outside US in past 30 days?: No Contact w/someone who lives/traveled outside US past 30 days?: No Exposure to someone with infectious disease in past 14 days?: No Do you have a fever (greater than 100.4 F or 38 C)?: No Have you tested positive for COVID-19?: No Exposed to someone with COVID-19 in past 14 days?: No Do you have a sore throat?: No Do you have a cough?: No Do you have any weakness?: No Do you have any diarrhea?: No Are you experiencing any unusual bleeding?: No Do you have any muscle aches/pain?: No Do you have any abdominal pain?: No Are you experiencing loss of taste or smell?: No [facility] Anesthesia Checklist Patient Identification Patient Identification: Arm Band and Verbal (Name & ) Structural Data Admitted From: Home Planned Operative Procedure/s: lap incisional hernia repair Consent for Planned Operative Procedure(s) Verified: Yes Verified Documents: Surgical Consent and History and Physical NPO Status Verified Time NPO: 00:00 Additional verifications Fingerstick Blood Glucose: 114 Anesthesia Reactions: No Hx Blood Transfusions: No Blood Transfusion Reaction: No Airway Assessment Mallampati Score:: Class II Dentition: Edentulous Neurological Assessment Level of Consciousness: Awake, Alert and Appropriate Anesthesia Plan Anesthesia Risk discussed: Yes Anesthesia Plan: Verified ASA Class: III Anesthesia Type: General
[2024-11-29] MEDS: CLINDAMYCIN PHOSPHATE/D5W 900 MG/50 ML PIGGYBACK 100 MG IV (08:00)
[2024-11-29] MEDS: LIDOCAINE 1% 20ML MDV 20 ML (08:16)
[2024-11-29] MEDS: SODIUM CHLORIDE IRRIG SOLUTION 3,000 ML 3000 ML IR (08:17)
[2024-11-29 08:25] LABS: POC Glucose,Bedside 114 (70-110)
--- NOTE | 2024-11-29 09:07 | EXP.OP.NOTE ---
Date of procedure: 11/29/24 Pre-op Diagnosis:: Ventral incisional hernia Post-op Diagnosis:: Same Procedure performed:: Laparoscopic ventral incisional hernia repair (8 cm Ventralex mesh) Surgeon:: Alexandre Mclean MD Anesthesia: JEROD Estimated blood loss (mL): 15 Operative findings:: Dense adhesions between anterior abdominal wall and omentum, small bowel, and colon 2 cm defect above into the right of umbilicus 8 cm Ventralex mesh placed for repair Operative note:: After informed consent was obtained the patient was taken to the operating room and placed in the supine position. General anesthesia was induced and his abdomen was prepped and draped in a sterile fashion. After infiltration with local anesthetic a Veress needle was placed in the left upper quadrant. The abdomen was insufflated. Three 5 mm trocars were placed along the left flank. Dense adhesions were noted throughout. Adhesions between the anterior abdominal wall and omentum, small bowel, and colon were noted. Blunt dissection was utilized to free the adhesions. There was no obvious injury to small bowel or colon and no obvious bleeding. A 2 cm defect was noted just above and to the right of the umbilicus. A 12 mm trocar was placed at this site. An 8 cm Ventralex mesh was placed through the trocar and then secured circumferentially with 0 Ethibond. OPTi fix tacks were then placed internally along the mesh margin. Pneumoperitoneum was released. All trocars were removed and skin was then closed with interrupted 4-0 Monocryl in a mattress fashion to facilitate hemostasis. Dressings were applied and the patient was transferred to recovery in stable condition. Condition: stable Disposition: PACU Specimens:: None Complications:: No immediate
--- NOTE | 2024-11-29 09:23 | P.PNANES_ITS ---
[facility] Anesthesia Record Part I Anesthesia Record I Intake, IV Amount: 800 Hydration: Adequate Estimated blood loss (mL): 10 Urine output (mL): 0 Blood Pressure: 149/92 SaO2: 95 Pulse Rate: 58 Airway Patency: Patent Respiratory Rate: 18 Temperature: 98 F Patient is:: Awake, Drowsy, Nasal O2 and Stable Stable to PACU at:: 09:29
[2024-11-29 09:28] LABS: POC Glucose,Bedside 103 (70-110)
[2024-11-30 12:26] VITALS: BP 122/57; PULSE 58; RESP 18; TEMP 36.6; O2SAT 99
--- NOTE | 2024-11-30 12:26 | P.PNANES_ITS ---
[facility] Anesthesia Record Part II Anesthesia Record Part II Discharge Time: 09:49 Destination: Surgical Day Care (OP Surgery) PACU nurse assessment reviewed?: Yes Patient Condition:: Good Anesthesia Complications:: None Swallowing reflex intact?: Yes Airway Patency: Patent Cyanosis?: No Blood Pressure: 122/57 SaO2: 99 Respiratory Rate: 18 Pulse Rate: 58 Temperature: 98 F Mental Status: Alert & Oriented Pain level:: 0 Nausea and/or vomitting:: None Intake, IV Amount: 0 Hydration: Adequate
== END 2024-11-29 10:46 | disposition home or self-care (01) ==
PROVIDERS: PCP Emergency Medicine; Visit Provider Surgery
PROC: 0WQF4ZZ Repair Abdominal Wall, Percutaneous Endoscopic Approach (ICD-10-PCS; CPT 49591; principal; 2024-11-29 08:40)
DX: K43.2 Incisional hernia without obstruction or gangrene (principal); M62.08 Separation of muscle (nontraumatic), other site; K66.0 Peritoneal adhesions (postprocedural) (postinfection); E66.3 Overweight; E78.5 Hyperlipidemia, unspecified; I10 Essential (primary) hypertension; F17.210 Nicotine dependence, cigarettes, uncomplicated; E11.40 Type 2 diabetes mellitus with diabetic neuropathy, unspecified; I25.10 Atherosclerotic heart disease of native coronary artery without angina pectoris; N40.0 Benign prostatic hyperplasia without lower urinary tract symptoms; Z88.0 Allergy status to penicillin; Z79.899 Other long term (current) drug therapy; Z79.82 Long term (current) use of aspirin; Z79.1 Long term (current) use of non-steroidal anti-inflammatories (NSAID); Z79.84 Long term (current) use of oral hypoglycemic drugs; Z95.5 Presence of coronary angioplasty implant and graft; Z90.49 Acquired absence of other specified parts of digestive tract; Z68.29 Body mass index [BMI] 29.0-29.9, adult
CPT/HCPCS: 49591; 82962; 96374; C1781; J0736; J1100; J1200; J2003; J2250; J2371; J2405; J2704; J3010

== ENCOUNTER 2024-12-05 14:42 | Outpatient (CLI) | payer MEDICARE, SELFPAY ==
--- OUTSIDE RECORDS SUMMARY | 2024-12-05 14:45 | XMS_ITS | Clinical Summary ---
Author Organization [facility] Address [address] [place] [address] Care Team Providers Care Overlocker Name Role Phone AlemDaja Vesta Primary Care Provider Unavail able Kenisha Pastor MD Unavailable Allergies Active Allergy Reactions Criticality Noted Date Comments Amoxicillin Rash High 02/27/2024 Medications amLODIPine (Norvasc) 10 MG tablet TAKE 1 TABLET BY MOUTH ONCE DAILY FOR 30 DAYS 11/25/2020 Active atorvastatin (Lipitor) 40 MG tablet Take 1 tablet (40 mg) by mouth 1 (one) time each day. 03/03/2021 Active carvedilol (Coreg) 25 MG tablet Take 1 tablet (25 mg) by mouth 2 (two) times a day. 03/02/2021 Active diclofenac (Voltaren) 1 % topical gel APPLY 2 GRAMS FOUR TIMES DAILY TO BACK DIRECTED 12/17/2020 Active glipiZIDE XL (Glucotrol XL) 10 MG 24 hr tablet TAKE 1 TABLET BY MOUTH TWICE DAILY FOR DIABETES 01/01/2021 Active lisinopril 20 MG tablet TAKE 1 TABLET BY MOUTH ONCE DAILY FOR 30 DAYS 11/18/2020 Active sildenafil (Revatio) 20 MG tablet 12/23/2020 Active tamsulosin (Flomax) 0.4 MG 24 hr capsule Take 1 capsule (0.4 mg) by mouth 1 (one) time each day. 12/22/2020 Active fish oil ([place]-3) 500 MG capsule Take 2 capsules (1,000 mg) by mouth 1 (one) time each day. Active methocarbamol (Robaxin) 500 MG tablet Take 1 tablet (500 mg) by mouth 4 (four) times a day. Active canagliflozin (Invokana) 100 MG Take by mouth. Active aspirin 81 MG EC tablet Take 1 tablet (81 mg) by mouth 1 (one) time each day. Active empagliflozin (Jardiance) 25 MG Take 1 tablet (25 mg) by mouth 1 (one) time each day. Active gabapentin (Neurontin) 600 MG tablet Take 1 tablet (600 mg) by mouth 4 (four) times a day. Active HYDROcodone-abbi taminophen ([place]) 7.5-325 MG tablet Take 1 tablet (7.5 mg of hydrocodone) by mouth 3 (three) times a day. Active Active Problems Problem Noted Date Diagnosed Date Chronic kidney disease-mineral and bone disorder (CKD-MBD) 04/20/2024 Type 2 diabetes mellitus wit h stage 3a chronic kidney disease 04/20/2024 Anemia due to stage 3 chronic kidney disease 06/2023 Hypertensive chronic kidney disease with stage 1 through stage 4 chronic kidney disease, or unspecified chronic kidney disease 04/20/2024 Combined hyperlipidemia 04/20/2024 Immunizations Immunization Administration Dates Next Due Influenza, injectable, quadrivalent, preservativ e free 04/09/2020,07/18/2019 Pneumococcal Polysaccharide PPV23 03/20/2019 Family History Medical History Relation Name Comments Hypertension Father Colon cancer Other Relation Name Status Comments Father Other Paternal Grandfather Grandparent Social History Tobacco Use Types Packs/Day Years Used Date Smoking Tobacco: Every Day Cigarettes Smokeless Tobacco: Never Tobacco Cessation:Ready to Q uit: No; Counseling Given: Yes Alcohol Use Standard Drinks/Week Comments Never 0 (1 standard drink = 0.6 oz pur e alcohol) Sex and Gender Information Value Date Recorded Sex Assigned at Not on file Legal Sex Male 8:20 PM EDT Gender Identity Not on file Sexual Orientation Not on file Last Filed Vital Signs Vital Sign Reading Time Taken Comments Blood Pressure 120/64 04/20/2024 11:20 AM EDT Pulse 80 04/20/2024 11:20 AM EDT Temperature 36.6 C (97.9 F) 04/20/2024 11:20 AM EDT Respiratory Rate 18 04/20/2024 11:20 AM EDT Oxygen Saturation 94% 04/20/2024 11:20 AM EDT Inhaled Oxygen Concentration - - Weight 89.8 kg (198 lb) 04/20/2024 11:20 AM EDT Height 170.2 cm (5' 7 ) 04/20/2024 11:20 AM EDT Body Mass Index 31.01 04/20/2024 11:20 AM EDT Plan of Treatment Health Maintenance Due Date Last Done Comments [facility]-Depression Screening 1955 [facility]-/Child/Adol SDOH Screenings 1955 [facility]- SDOH Screenings 1973 [facility]-Adult SDOH Screenings 1973 [facility]-DTaP,Tdap,and Td Vaccine s (1 - Tdap) 1974 CT Colonography 2000 FIT-DNA 2000 FIT 2000 FOBT 2000 Sigmoidoscopy 2000 [facility]-Zoster Vaccines (1 of 2) 2005 [facility]-Pneumococcal Vaccine: 50 + Years (2 of 2 - PCV) 03/20/2020 03/20/2019 Colonoscopy 01/29/2021 01/29/2011 [facility]-Colorectal Cancer Screening 01/29/2021 [id number] Vaccine ( season) 2024 06/09/2021, 09/25/2020 [facility]-Influenza Vaccine ([place]as[place] n Ended) 2025 04/09/2020, 07/18/2019 [facility]-RSV Vaccine: 60+ Years o r (1 - 1-dose 75+ series) 2030 HPV Vaccines Aged Out No longer eligi ble based on patient's age to complete this topic [facility]-HIB Vaccines Aged Out No longer e ligible based on patient's age to complete this topic [facility]-Hepatitis A Vaccines Aged Out No longer eligible based on patient's age to complete this topic [facility]-IPV Vaccines Aged Out No longer e ligible based on patient's age to complete this topic [facility]-Rotavirus Vaccines Aged Out No lo nger eligible based on patient's age to complete this topic Procedures Procedure Name Priority Date/Time Associated Diagnosis Comments COLONOSCOPY 01/29/2011 from Last 3 Months or Most Recently Relevant to Health Maintenance Results * COLONOSCOPY (01/29/2011) Anatomical Region Laterality Modality Endoscopy Narrative 01/29/2011 Ordered by an unspecified provider. us Historical Provider GI PROCEDURE ORDERABLES F inal Result from Last 3 Months or Most Recently Relevant to Health Maintenance Insurance MEDICARE Care Teams Overlocker Relationship Specialty Start Date End Date Daja Ferrara PCP - General 03/17/21 Kenisha Pastor MD [phone] [facility] [address] [place] [address] Surgeon Neurosurgery 03/17/21
--- OUTSIDE RECORDS SUMMARY | 2024-12-05 14:45 | XMS_ITS | Encounter Summary ---
Author Organization [facility] Address [address] [place] [address] Care Team Providers Care Radiology Manager Name Role Phone Palomo Noriega MD Primary Care Provider [phone] Daja Ferrara Primary Care Provider Unavail able Kenisha Pastor MD Unavailable Reason for Referral * Consultation (Routine) - Closed Specialty Diagnoses / Procedures Referred By Contac t Referred To Contact Neurosurgery Diagnoses Lumbar spondylosis Lumbar disc disease with radiculopathy Hector Wagner, SHIPWRIGHT SUPERVISOR [address] [place] [address] Phone: tel: fax: Referral ID Status Reason Start Date Expiration Date V isits Requested Visits Authorized [id number] Closed Specialty Services Required 01/13/2021 07/12/2021 1 1 Encounter Details Date Type Department Care Team ([facility] st Contact Info) Description 01/13/2021 Community Orders Community Practice [address] [place] [address] Hector Wagner, SHIPWRIGHT SUPERVISOR [address] [place] [address] Lumbar spondylosis (Primary Dx); Lumbar disc disease with radiculopathy Social History Tobacco Use Types Packs/Day Years Used Date Smoking Tobacco: Never Assessed Sex and Gender Information Value Date Recorded Sex Assigned at Not on file Legal Sex Male 8:20 PM EDT Gender Identity Not on file Sexual Orientation Not on file documented as of this encounter Plan of Treatment Scheduled Referrals Name Type Priority Associated Diagnoses Orde r Schedule Ambulatory Referral to Neurosurgery Outpatient Referral Routine Lumbar spondylosis Lumbar disc disease with radiculopathy Expected: 01/13/2021 (Approximate), Expires: 07/16/2021 documented as of this encounter Visit Diagnoses Diagnosis Lumbar spondylosis- Primary Lumbosacral spondylosis without myelopathy Lumbar disc disease with radiculopathy documented in this encounter Care Teams Radiology Manager Relationship Specialty Start Date End Date Palomo Noriega MD [address] [place] [address] PCP - General 10/31/20 03/16/21 Daja Ferrara PCP - General 03/17/21 Kenisha Pastor MD [address] [place] [address] Surgeon Neurosurgery 03/17/21 documented as of this encounter
[2024-12-05 15:34] LABS: Basophils % 0.5 % (0.1-2.0); Eosinophils # 0.5 Kmm3 (0.0-0.4); Eosinophils % 6.1 % (0.1-12.0); Hematocrit 40.7 % (42.0-52.0); Hemoglobin 12.7 g/dL (14.1-18.0); Immature Granulocytes # 0.02 10^3uL; Immature Granulocytes % 0.3 %; Lymphocytes # 2.9 K/mm3 (0.7-4.5); Lymphocytes % 37.3 % (10-50); Mean Corpuscular HGB Conc 31.2 g/dL (31.8-35.4); Mean Corpuscular Hemoglobin 30.5 pg (27.0-31.2); Mean Corpuscular Volume 97.6 fl (80-94); Mean Platelet Volume 10.6 fl (7.4-10.4); Monocytes # 0.5 K/mm3 (0.1-1.0); Neutrophils # 3.8 K/mm3 (1.8-7.8); Neutrophils % 48.8 % (37.0-80.0); Nucleated Red Blood Cells # 0 10^3/uL; Nucleated Red Blood Cells % 0 %; Platelet Count 148 K/mm3 (142-424); Red Blood Count 4.17 M/mm3 (4.60-6.20); Red Cell Distribution Width 14.2 % (11.5-17.5); Red Cell Distribution Width-SD 50.8 fL; White Blood Count 7.7 K/mm3 (4.8-10.8)
== END 2024-12-05 23:59 | disposition home or self-care (01) ==
LOC: LAB 14:42
PROVIDERS: PCP Emergency Medicine; Visit Provider Surgery
DX: K43.2 Incisional hernia without obstruction or gangrene (principal)
CPT/HCPCS: 36415; 85025

== ENCOUNTER 2025-03-29 09:11 | Outpatient (CLI) | payer MEDICARE, SELFPAY ==
--- OUTSIDE RECORDS SUMMARY | 2025-03-29 09:13 | XMS_ITS | Encounter Summary ---
Author Organization [facility] Address [address] [place] [address] Care Team Providers Care Hand Router Operator Name Role Phone Palomo Noriega MD Primary Care Provider [phone] Daja Ferrara Primary Care Provider Unavail able Kenisha Pastor MD Unavailable Reason for Referral * Consultation (Routine) - Closed Specialty Diagnoses / Procedures Referred By Contac t Referred To Contact Neurosurgery Diagnoses Lumbar spondylosis Lumbar disc disease with radiculopathy Hector Wagner, BLUEPRINT TRIMMER [address] [place] [address] Phone: tel: fax: Referral ID Status Reason Start Date Expiration Date V isits Requested Visits Authorized [id number] Closed Specialty Services Required 01/13/2021 07/12/2021 1 1 Encounter Details Date Type Department Care Team ([facility] st Contact Info) Description 01/13/2021 Community Orders Community Practice [address] [place] [address] Hector Wagner, BLUEPRINT TRIMMER [address] [place] [address] Lumbar spondylosis (Primary Dx); Lumbar [...] radiculopathy documented in this encounter Care Teams Hand Router Operator Relationship Specialty Start Date End Date Palomo Noriega MD [address] [place] [address] PCP - General 10/31/20 03/16/21 Daja Ferrara PCP - General 03/17/21 Kenisha Pastor MD [address] [place] [address] Surgeon Neurosurgery 03/17/21 documented as of this encounter
--- OUTSIDE RECORDS SUMMARY | 2025-03-29 09:13 | XMS_ITS | Clinical Summary ---
Author Organization [facility] Address [address] [place] [address] Care Team Providers Care Associate Account Director Name Role Phone AlemDaja Vesta Primary Care [...] time each day. 12/22/2020 Active fish oil ([place]-3) 500 MG capsule Take 2 capsules (1,000 [...] (four) times a day. Active HYDROcodone-abbi taminophen ([place]) 7.5-325 MG tablet Take 1 tablet (7.5 [...] Date Last Done Comments [facility]-Depression Screening 1955 [facility]-Infant/Child/Adol SDOH Screenings 1955 [facility]- SDOH Screenings 1973 [facility]-Adult SDOH Screenings 1973 [facility]-DTaP,Tdap,and Td Vaccine s (1 - Tdap) 1974 CT Colonography 2000 FIT-DNA 2000 FIT 2000 FOBT 2000 Sigmoidoscopy 2000 [facility]-Zoster Vaccines (1 of 2) 2005 [facility]-Pneumococcal Vaccine: 50 + Years (2 of 2 - PCV) 03/20/2020 03/20/2019 Colonoscopy 01/29/2021 01/29/2011 [facility]-Colorectal Cancer Screening 01/29/2021 [id number] Vaccine (3 - season) 2025 06/09/2021, 09/25/2020 [facility]-Influenza Vaccine (#1) 02/18/202504/09, 07/18/2019 [facility]-RSV Vaccine: 60+ Years o r [...] provider. us Historical Provider GI PROCEDURE ORDERABLES Elli l Result from Last 3 Months or Most Recently Relevant to Health Maintenance Insurance MEDICARE Care Teams Associate Account Director Relationship Specialty Start Date End Date Daja Ferrara PCP - General 03/17/21 Kenisha Pastor MD [address] [facility] [address] [place] [id number] Surgeon Neurosurgery 03/17/21
--- NOTE | 2025-03-29 09:16 | XR_ITS ---
FINAL REPORT TECHNIQUE: Bone densitometry calculations of the lumbar spine and left hip were obtained. CLINICAL HISTORY: SCREENING COMPARISON: None FINDINGS: Using L1-4, the bone mineral density of the spine is 1.332 g/cm2, corresponding to T-score of 2.2 and a Z score of 3.1. This is within the range of normal limits. Using the left hip, the bone mineral density of the femoral neck is 0.868 g/cm2, corresponding to a T-score of -0.5 and a Z-score of 0.7. This is within the range of normal limits. FRAX not reported because all T-scores at or above -1.0 NOTE: T-score: Standard deviation compared with peak bone mass of young adult mean. *Following the recommendations of the International Society of Bone densitometry, classification of hip BMD is based on the lower of two T-scores; total hip or femoral neck. IMPRESSION: 1. Bone mineral density of the lumbar spine within the range of normal limits. 2. Bone mineral density of the left femoral neck within the range of normal limits. Reviewed, Interpreted and Dictated by Paulette Anderson MD Transcribed by Gilma Gibbs Authenticated and [facility]
--- NOTE | 2025-03-29 09:16 | XR_ITS ---
FINAL REPORT CLINICAL HISTORY: POLYNEUROPATHY, TOBACCO USE, KYPHOSIS, LBP COMPARISON: 07/11/2016 FINDINGS: AP and lateral views of the lumbar spine were obtained. There is no prior exam for comparison. There is no acute fracture or malalignment. Vertebral body height is preserved. There is multilevel degenerative disc disease, progressed and most pronounced at L2-3. There is deformity of the mid sacrum which was not present on the prior exam, could represent a fracture but not acute. No acute paraspinal abnormality. IMPRESSION: Degenerative and chronic appearing findings. Reviewed, Interpreted and Dictated by Paulette Anderson MD Transcribed by Hellen Paul Authenticated and [facility]
== END 2025-03-29 23:59 | disposition home or self-care (01) ==
LOC: RAD 09:12
PROVIDERS: PCP Emergency Medicine; Visit Provider Emergency Medicine
DX: M51.362 Other intervertebral disc degeneration, lumbar region with discogenic back pain and lower extremity pain (principal); M81.0 Age-related osteoporosis without current pathological fracture; G62.9 Polyneuropathy, unspecified; M41.9 Scoliosis, unspecified; R93.7 Abnormal findings on diagnostic imaging of other parts of musculoskeletal system; Z72.0 Tobacco use
CPT/HCPCS: 72100; 77080

== ENCOUNTER 2025-05-01 09:44 | Emergency (ER) | payer MEDICARE, SELFPAY ==
[2025-05-01 10:10] VITALS: BP 126/73; PULSE 60; RESP 15; TEMP 36.9; O2SAT 96; BMI 29.0
--- NOTE | 2025-05-01 10:13 | HMH.EDGENADL ---
Discharge Plan Disposition Patient Disposition: Home, Self-Care Condition: Good Prescriptions Prescriptions: No Action aspirin [Aspir-81] 81 mg tablet,delayed release (DR/EC) 81 mg PO DAILY amlodipine 5 mg tablet 5 mg PO DAILY baclofen 20 mg tablet 20 mg PO BID albuterol sulfate 90 mcg/actuation HFA aerosol inhaler 90 mcg inhalation DAILY tamsulosin 0.4 mg capsule 0.4 mg PO DAILY hydrocodone-acetaminophen 7.5-325 mg tablet 1 tab PO diclofenac sodium [Voltaren Arthritis Pain] 1 % gel 2 g TOPICAL QID Qty: 100 2RF Rx Instructions: apply to back gabapentin 600 mg tablet 600 mg PO QID Patient Comments: TAKE 1 TABLET BY MOUTH THREE TIMES DAILY losartan 100 mg tablet 100 mg PO DAILY tadalafil [Cialis] 10 mg tablet 10 mg PO DAILY Qty: 90 3RF Jardiance 25 mg tablet 25 mg PO DAILY famotidine 40 mg tablet 40 mg PO DAILY fluticasone propionate [Flonase Allergy Relief] 50 mcg/actuation spray,suspension 2 spray intranasal DAILY Qty: 16 2RF Rx Instructions: administer into each nostril daily sildenafil (pulm.hypertension) 20 mg tablet 20 mg PO Q6H Qty: 30 0RF Rx Instructions: TAKE ONE TABLET BY MOUTH DAILY NEEDED FOR SEXUAL ACTIVITY 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 APART glipizide 10 mg tablet extended release 24hr 10 mg PO BID Qty: 180 0RF furosemide [Lasix] 20 mg tablet 20 mg PO DAILY Qty: 30 2RF oxybutynin chloride 10 mg tablet extended release 24hr 10 mg PO DAILY Qty: 90 3RF gentamicin 0.1 % ointment 1 applic topical BID 21 Days Qty: 30 2RF Rx Instructions: Apply to the affected red area up to twice daily [id number] oil 1 EACH capsule 1 mg PO DAILY atorvastatin 40 MG tablet 40 mg PO DAILY carvedilol 25 MG tablet 25 mg PO BID (DME) blood-glucose meter 1 EACH misc See Rx Instructions .Route .MEDSUPPLY Rx Instructions: As directed (DME) blood sugar diagnostic 1 EACH strip See Rx Instructions .Route .MEDSUPPLY Rx Instructions: As directed fluocinonide 0.05 % solution 1 applic TOPICAL DAILY Referrals Follow up/Referrals: Daja Ferrara MD [Primary Care Provider, Family Practice] - See instructions Activity Restrictions/Add. Instructions Additional Instructions/Restrictions: Follow-up with PCP regarding pain regimen. Please follow up with your primary care provider in 2-3 days. Please return to ED if your symptoms worsen, change in location, change in severity, new symptoms develop or if you become concerned for your health. Clinical Impressions Clinical Impression: Sciatica Qualifiers: Laterality: left Qualified Code(s): M54.32 - Sciatica, left side Cerumen impaction Qualifiers: Laterality: right Qualified Code(s): H61.21 - Impacted cerumen, right ear Print Language Print Language: Sammarinese Discharge ED Provider: Azar Stanford General Adult HPI General Chief complaint: PAIN Stated complaint: sciatic pain, R ear stopped up Time Seen by Provider: 05/01/25 10:09 History of Present Illness HPI narrative: Patient is a 69-year-old male with history of sciatica, COPD, hypertension, diabetes. Presenting today with an acute exacerbation of his chronic low back pain that radiates into his left leg. He reports that he has been taking his home hydrocodone 5 mg every 8 hours, Zanaflex, gabapentin with minimal relief. He reports that a pain shot usually helps. He denies any fevers, numbness, weakness, tingling, urinary incontinence, saddle anesthesia, history of IV drug use, surgical history. He reports that this consistent with his previous pain flares. He also reports that he has had a fullness in his right ear without drainage or fevers or pain. Has had difficulty hearing out of it. Denies any issues urinating or systemic symptoms. Related Data Home Medications ?Medication ?Instructions ?Recorded ?Confirmed aspirin 81 mg tablet,delayed 81 mg PO DAILY Blood thinner 12/04/18 05/01/25 release (Aspir-) atorvastatin 40 mg tablet 40 mg PO DAILY Cholesterol 11/27/20 05/01/25 blood sugar diagnostic 11/27/20 05/01/25 blood-glucose meter 11/27/20 05/01/25 carvedilol 25 mg tablet 25 mg PO BID BP 11/27/20 05/01/25 omega3 300 mg-dha,epa 250 mg-other 1 mg PO DAILY Supplement 11/27/20 05/01/25 omega 3s-fish oil 1,000 mg capsule gabapentin 600 mg tablet 600 mg PO QID 01/12/23 05/01/25 losartan 100 mg tablet 100 mg PO DAILY 01/12/23 05/01/25 empagliflozin 25 mg tablet 25 mg PO DAILY 01/11/24 05/01/25 (Jardiance) fluocinonide 0.05 % topical 1 applic topical DAILY 02/08/24 05/01/25 solution albuterol sulfate 90 mcg/actuation 90 mcg inhalation DAILY 08/20/24 05/01/25 aerosol inhaler amlodipine 5 mg tablet 5 mg PO DAILY 08/20/24 05/01/25 baclofen 20 mg tablet 20 mg PO BID 08/20/24 05/01/25 hydrocodone 7.5 mg-acetaminophen 1 tab PO 03/06/25 05/01/25 325 mg tablet tamsulosin 0.4 mg capsule 0.4 mg PO DAILY 03/06/25 05/01/25 famotidine 40 mg tablet 40 mg PO DAILY 03/12/25 05/01/25 Previous Rx's ?Medication ?Instructions ?Recorded diclofenac sodium 1 % topical gel 2 g topical QID #100 grams 12/17/20 (Voltaren Arthritis Pain) sildenafil (pulm.hypertension) 20 20 mg PO Q6H * #30 tabs 12/23/20 mg tablet glipizide 10 mg tablet, extended 10 mg PO BID Diabetes #180 tabs 01/01/21 release 24 hr furosemide 20 mg tablet (Lasix) 20 mg PO DAILY #30 tabs 01/12/23 tadalafil 10 mg tablet (Cialis) 10 mg PO DAILY #90 tabs 08/29/23 oxybutynin chloride 10 mg 10 mg PO DAILY #90 tabs 08/20/24 tablet,extended release 24 hr fluticasone propionate 50 2 spray intranasal DAILY #16 grams 02/20/25 mcg/actuation nasal spray,suspension (Flonase Allergy Relief) gentamicin 0.1 % topical ointment 1 applic topical BID cellulitis 3 03/25/25 weeks #30 grams Allergies Allergy/AdvReac Type Severity Reaction Status Date / Time amoxicillin (AMOXICILLIN) Allergy Intermediate I-RASH Verified 05/01/25 08:39 [facility] Disclaimer: The information contained in this section may have been updated after the patient was seen, as this information can be updated by other users. Medical History Gallbladder sludge Palpitations Diarrhea Refused influenza vaccine Tonsillitis Neck pain Lumbar degenerative disc disease Lower extremity neuropathy Lumbar disc herniation with radiculopathy Lumbar degenerative disc disease Lumbar spondylosis Thoracic disc herniation BPH (benign prostatic hyperplasia) Hypertension Hyperlipidemia Diabetes Coronary artery disease Low back pain Type 2 diabetes mellitus Surgical History History of colonoscopy History of colon resection H/O heart artery stent Family History Other Family history of essential hypertension Family history of heart disease Social History Smoking Status: Current every day smoker tobacco type: cigarettes packs per day: 1 alcohol intake: never substance use type: painkillers current occupational status: retired Travel in the last 8 weeks?: Inside the [facility] housing: house caffeine: Yes Have you lived/traveled outside US in past 30 days?: No Contact w/someone who lives/traveled outside US past 30 days?: No Exposure to someone with infectious disease in past 14 days?: No Do you have a fever (greater than 100.4 F or 38 C)?: No Have you tested positive for COVID-19?: No Exposed to someone with COVID-19 in past 14 days?: No Do you have a sore throat?: No Do you have a cough?: No Do you have any weakness?: No Do you have any diarrhea?: No Are you experiencing any unusual bleeding?: No Do you have any muscle aches/pain?: No Do you have any abdominal pain?: No Are you experiencing loss of taste or smell?: No Other Medical History Have you received the Flu Vaccine for this season: No Have you received the Pneumonia Vaccine: Yes ROS Obtained: Yes All systems reviewed & no additional complaints except as documented Physical Exam General General appearance: alert and in no apparent distress Head Head exam: atraumatic and normocephalic Eye Eye exam: Present PERRL and EOMI ENT ENT exam: Present normal oropharynx Neck Neck exam: Present full ROM and trachea midline Chest Chest inspection: Present symmetric chest wall rise Respiratory Respiratory exam: Present normal lung sounds bilaterally; Absent stridor Cardiovascular Cardiovascular exam: Present regular rate and normal rhythm Abdominal Exam Abdominal exam: Present soft; Absent distention or tenderness Extremities Exam Extremities exam: Present full ROM Back Exam Back exam: Present full ROM, tenderness (Paraspinal lumbar tenderness on the left), sciatic notch tenderness (L) and straight leg raise (L) Neurological Exam Neurological exam: Present alert, oriented X3, normal gait and reflexes normal; Absent motor sensory deficit Psychiatric Psychiatric exam: Present normal mood Skin Skin exam: Present warm and dry Medical Decision Making Medical Records Screening: Per USPSTF and CDC recommendations, given the prevalence of disease in our region, it is our hospital?s policy to screen for HIV and viral Hepatitis for all patients aged 18 and over and those with ongoing risk factors. Kana Inquiry Pt receiving controlled substance: No Vital Signs: 05/01/25 10:10 05/01/25 11:00 Temperature 98.4 F Temperature Source Oral Pulse Rate 54 L Pulse Rate [Right Radial] 60 Respiratory Rate 15 Blood Pressure 128/70 Blood Pressure [Right Arm] 126/73 Blood Pressure Mean [Right Arm] 90 Blood Pressure Source [Right Arm] Automatic Cuff Blood Pressure Position [Right Arm] Supine 02 Sat by Pulse Oximetry 96 95 Oxygen Delivery Method Room Air Orders (Tests/Meds): ED MEDICATIONS Discontinued Medications Generic Name Dose Route Start Last Admin Trade Name Freq PRN Reason Stop Dose Admin Hydrocodone Bitart/Acetaminophen 2 tab 05/01/25 10:50 05/01/25 11:35 Hydrocodone/Apap 5/325 Mg Tablet PO 05/01/25 10:51 2 tab ONCE ONE Administration Ketorolac Tromethamine 15 mg 05/01/25 11:26 05/01/25 11:33 Ketorolac 15mg/Ml Vial IM 05/01/25 11:27 15 mg ONCE ONE Administration Lidocaine 1 each 05/01/25 10:51 05/01/25 10:58 Lidocaine 5% Transdermal Patch TD 05/01/25 10:52 1 each ONCE ONE Administration Morphine Sulfate 4 mg 05/01/25 10:45 05/01/25 11:00 Morphine 4mg/Ml Syringe IV 05/01/25 10:46 Not Given ONCE ONE Ondansetron HCl 4 mg 05/01/25 10:45 05/01/25 11:00 Ondansetron 4mg/2ml Vial IV 05/01/25 10:46 Not Given ONCE ONE ORDERS Category Date Time Status HIV Combo Stat Lab 05/01/25 10:15 Ordered Hepatitis C Ab Qual. W/ RFX Stat Lab 05/01/25 10:15 Ordered Medical Decision Narrative: Patient is a 69-year-old male with history of sciatica hypertension hyperlipidemia and diabetes. On arrival he is afebrile hemodynamically stable no acute distress on exam is warm and well-perfused full pulses and brisk capillary refill. He is tender in the left sciatic notch. He has a positive straight leg raise on the left. He has normal reflexes bilaterally. No clonus. Good motor and sensory exam and is ambulatory. I considered cross-sectional imaging, but he denies any recent trauma and is not midline tender, this felt the result would benefit so was deferred. He is exhibiting no red flag symptoms for cauda equina so deferred MRI. Most likely an acute exacerbation of his chronic sciatic pain. No concern for epidural abscess given absence of risk factors or fevers. Will treat symptomatically here. He reports he usually gets a pain shot. Given he is a diabetic, I have deferred steroids at this time. I offered him a pain shot, but when he realized that it is an IV form, he declined and prefers to manage with oral medicines first. Regarding his right ear fullness, he has a cerumen impaction on the right. TM is clear on the left. No evidence of mastoiditis. Cleaned out ear, TM is clear and nonperforated on the right. On reassessment, pain is improved, stricter precautions discussed all questions are patient minimal plan and discharge. Follow-up with PCP regarding pain regimen. Procedures Ear Wax Removal Right Ear: Results: Re-examined: cerumen removed completely TM Examination: TM(s) intact, normal appearance Ear Canal Exam: atraumatic Patient Tolerated Procedure: well Complications: no problems Technique: ear canal irrigated and ear canal curetted Critical Care Critical Care Time Critical Care Time: No
--- OUTSIDE RECORDS SUMMARY | 2025-05-01 10:30 | XMS_ITS | Clinical Summary ---
Author Organization [facility] Address [address] [place] [address] Care Team Providers Care Vp Human Resources Name Role Phone AlemDaja Vesta Primary Care [...] time each day. 12/22/2020 Active fish oil ([place]-3) 500 MG capsule Take 2 capsules (1,000 [...] (four) times a day. Active HYDROcodone-abbi taminophen ([place]) 7.5-325 MG tablet Take 1 tablet (7.5 [...] Colonoscopy 01/29/2021 01/29/2011 [facility]-Colorectal Cancer Screening 01/29/2021 [id number] Vaccine (3 - season) 2025 06/09/2021, 09/25/2020 [...] to Health Maintenance Insurance MEDICARE Care Teams Vp Human Resources Relationship Specialty Start Date End Date Daja Ferrara PCP - General 03/17/21 Kenisha Pastor MD [address] [facility] [address] [place] [id number] Surgeon Neurosurgery 03/17/21
--- OUTSIDE RECORDS SUMMARY | 2025-05-01 10:30 | XMS_ITS | Encounter Summary ---
Author Organization [facility] Address [address] [place] [address] Care Team Providers Care Vulcanizing Machine Operator Name Role Phone Palomo Noriega MD Primary Care Provider [phone] Daja Ferrara Primary Care Provider Unavail able Kenisha Pastor MD Unavailable Reason for Referral * Consultation (Routine) - Closed Specialty Diagnoses / Procedures Referred By Contac t Referred To Contact Neurosurgery Diagnoses Lumbar spondylosis Lumbar disc disease with radiculopathy Hector Wagner, SYRUP MIXER ASSISTANT [address] [place] [address] Phone: tel: fax: Referral ID Status Reason Start Date Expiration Date V isits Requested Visits Authorized [id number] Closed Specialty Services Required 01/13/2021 07/12/2021 1 1 Encounter Details Date Type Department Care Team ([facility] st Contact Info) Description 01/13/2021 Community Orders Community Practice [address] [place] [address] Hector Wagner, SYRUP MIXER ASSISTANT [address] [place] [address] Lumbar spondylosis (Primary Dx); Lumbar [...] radiculopathy documented in this encounter Care Teams Vulcanizing Machine Operator Relationship Specialty Start Date End Date Palomo Noriega MD [address] [place] [address] PCP - General 10/31/20 03/16/21 Daja Ferrara PCP - General 03/17/21 Kenisha Pastor MD [address] [place] [address] Surgeon Neurosurgery 03/17/21 documented as of this encounter
[2025-05-01] MEDS: LIDOCAINE 5% TRANSDERMAL PATCH 1 EACH TD (10:58)
[2025-05-01 11:00] VITALS: BP 128/70; PULSE 54; O2SAT 95
[2025-05-01] MEDS: KETOROLAC 15MG/ML VIAL 15 MG IM (11:33)
[2025-05-01] MEDS: HYDROCODONE/APAP 5/325 MG TABLET 2 TAB PO (11:35)
[2025-05-01 11:48] VITALS: BP 145/72; PULSE 84; RESP 15; TEMP 36.7; O2SAT 99
== END 2025-05-01 11:51 | disposition home or self-care (01) ==
PROVIDERS: Emergency Provider Emergency Medicine; PCP Emergency Medicine
DX: M54.42 Lumbago with sciatica, left side (principal); H61.21 Impacted cerumen, right ear; F17.210 Nicotine dependence, cigarettes, uncomplicated; I10 Essential (primary) hypertension; E78.5 Hyperlipidemia, unspecified
CPT/HCPCS: 96372; 99283; 99284; J1885